=== PATIENT | female | born 1945 | race Caucasian/White ===

== ENCOUNTER → 2016-10-02 | Outpatient (CLI) | payer MEDICARE, OTHER | LOC: RAD 19:19 | PROVIDERS: ATTEND Specialist | DX: C90.00 Multiple myeloma not having achieved remission (principal) | CPT/HCPCS: 72158; A9577 ==

== ENCOUNTER → 2016-11-27 | Outpatient (CLI) | payer MEDICARE, OTHER | LOC: RAD 13:36 | PROVIDERS: ATTEND Radiology Radiation Oncology | DX: C90.00 Multiple myeloma not having achieved remission (principal); R07.81 Pleurodynia | CPT/HCPCS: 71250 ==

== ENCOUNTER → 2017-02-12 | Outpatient (CLI) | payer MEDICARE, OTHER ==
--- NOTE | 2017-02-15 12:06 | RADIOLOGY REPORT (SQ) ---
EXAM DESCRIPTION: PET CT SKULL/THIGH COMPLETED DATE/TIME: 02/12/2017 10:41 pm REASON FOR STUDY: Multiple myeloma not having achieved remission C90.00 MULTIPLE MYELOMA NOT HAVING ACHIEVED REMISSION COMPARISON: CT dated 11/27/2016. PET-CT dated 06/20/2016. RADIONUCLIDE AND DOSE: 12.0 mCi F18 FDG The route of agent administration: Intravenous FASTING BLOOD SUGAR: 71 mg/dl CONTRAST TYPE AND DOSE: No CT contrast given. TECHNIQUE: Blood glucose level was verified. Above dose of FDG was injected intravenously. 2-D seg mented attenuation correction images were obtained from the base of the skull to the midthighs. Nonc ontrast CT images were obtained for attenuation correction and fusion with emission images. CT image s were performed without oral or intravenous contrast and are not sensitive for parenchymal lesions. A series of overlapping emission PET images were obtained. Images reviewed and manipulated at [facility] work station by the radiologist. Images stored on PACS. LIMITATIONS: None. FINDINGS: HEAD AND NECK: No areas of abnormal metabolic activity in the soft tissues of the head and neck. CHEST: Again seen are numerous pleural-based soft tissue masses adjacent to the ribs and paraspinal r egion bilaterally. In general these are unchanged in appearance on CT scan with no significant winkler e in size or shape. However, SUV values have decreased since the prior study. The lesion in right l ateral chest currently has mean SUV value 4.11, prior value 5.9. Right paraspinal lesion has mean HEAD V value 4.64, prior value 6.5. Lesion in the lateral left chest has mean SUV value 4.83, prior value 5.7. Lesion in the left posterior costophrenic sulcus is no longer present. ABDOMEN AND PELVIS: No areas of abnormal metabolic activity in the abdomen or pelvis. Expected physi ologic activity is present in the genitourinary system and bowel. PROXIMAL LOWER EXTREMITIES: No areas of abnormal metabolic activity in the soft tissues of the lower extremities. BONES: Lucent lesions in the lumbar spine are unchanged on CT. However, these lesions have improved on PET scan. There is no abnormal metabolic activity on the current PET scan. ADDITIONAL CT FINDINGS: No additional significant findings on the noncontrast CT images. OTHER: No other significant findings. IMPRESSION: GENERAL IMPROVED APPEARANCE WITH DECREASE IN THE AREAS METABOLIC ACTIVITY DESCRIBED A NAHEED. NO NEW LESIONS. TECHNICAL DOCUMENTATION: JOB ID: [id number] [employer]- All Rights Reserved
== END ==
LOC: RAD 17:11
PROVIDERS: ATTEND Specialist
DX: C90.00 Multiple myeloma not having achieved remission (principal)
CPT/HCPCS: 78815; A9552

== ENCOUNTER 2017-05-06 12:52 | Outpatient (CLI) | payer MEDICARE, OTHER ==
[~2017-05-06 12:52] MED LIST: ACETAMINOPHEN 325 MG TABLET PO PRN; DIPHENHYDRAMINE HCL 25 MG CAPSULE PO PRN; FUROSEMIDE INJ/PF 20 MG/2 ML SDV IV PRN
[2017-05-06 13:40] LABS: HEMATOCRIT 20.9 % (36.0-47.0); MEAN CORPUSCULAR HEMOGLOBIN 36.1 pg (27.0-33.4); MEAN CORPUSCULAR HGB CONC 34.8 g/dL (32.0-36.0); MEAN CORPUSCULAR VOLUME 104 fl (80-97); RED BLOOD COUNT 2.01 10^6/uL (3.72-5.28); RED CELL DISTRIBUTION WIDTH 15.9 % (11.5-14.0); WHITE BLOOD COUNT 6.6 10^3/uL (4.0-10.5)
[2017-05-06 13:46] LABS: HEMOGLOBIN 7.3 g/dL (12.0-15.5)
[2017-05-06] MEDS ORDERED: NORMAL SALINE 250 ML IV PRN (14:02)
[2017-05-06 21:47] VITALS: BP 138/71
== END 2017-05-06 22:05 | disposition home or self-care (01) ==
LOC: II 12:52 → 3N 12:56 → II 22:05
PROVIDERS: ATTEND Internal Medicine
PROC: 30233N1 Transfusion of Nonautologous Red Blood Cells into Peripheral Vein, Percutaneous Approach (ICD-10-PCS; principal; 2017-05-06)
DX: D64.9 Anemia, unspecified (principal); C90.02 Multiple myeloma in relapse
CPT/HCPCS: 86900; 86901; 36415; 36430; 86850; 86920; P9016; A9270 ×2; J1940; 96374

== ENCOUNTER 2017-05-09 14:18 | Emergency (ER) | payer MEDICARE, OTHER ==
[2017-05-09] MEDS ORDERED: NORMAL SALINE 1000 ML 1,000 ML IV ONE ×2 (15:28→17:40)
--- NOTE | 2017-05-09 15:28 | ER Document Report ---
ED Medical Screen (RME) - General Chief Complaint: General Weakness Stated Complaint: BACK PAIN, WEAKNESS Time Seen by Provider: 05/09/17 15:25 Mode of Arrival: Wheelchair Information source: Patient Notes: 71-year-old female history of multiple myeloma presents with complaints of generalized weakness as well as a few falls. Patient admits to the lumbar thoracic flank pain. Denies any fevers or chills notes recent anemia requiring transfusion I have greeted and performed a rapid initial assessment of this patient. A comprehensive ED assessment and evaluation of the patient, analysis of test results and completion of the medical decision making process will be conducted by additional ED providers. PHYSICAL EXAMINATION: GENERAL: Elderly female chronically ill appearing HEAD: Atraumatic, normocephalic. EYES: Pupils equal round extraocular movements intact, conjunctiva are normal. ENT: Nares patent NECK: Normal range of motion LUNGS: No respiratory distress Musculoskeletal: Normal range of motion NEUROLOGICAL: Normal speech, normal gait. PSYCH: Normal mood, normal affect. SKIN: Warm, Dry, normal turgor, no rashes or lesions noted. TRAVEL OUTSIDE OF THE [place] IN LAST 30 DAYS: No - Related Data Allergies/Adverse Reactions: cefaclor [From Ceclor] Allergy (Verified 06/09/13 21:30) hydrogen peroxide [Hydrogen Peroxide] Allergy (Verified 06/09/13 21:29) iodine [Iodine] Allergy (Verified 06/09/13 21:29) lanolin [Lanolin] Allergy (Verified 06/09/13 21:30) Sulfa (Sulfonamide Antibiotics) Allergy (Verified 06/09/13 21:30) lanolin alcohols [Wool Alcohols] Adverse Reaction (Verified 06/09/13 21:30) Past Medical History - Social History Chew tobacco use (# tins/day): No Frequency of alcohol use: None Drug Abuse: None - Past Medical History Cardiac Medical History: Reports: Hx Hypertension Denies: Hx Congestive Heart Failure, Hx Heart Attack Pulmonary Medical History: Denies: Hx Asthma, Hx Bronchitis, Hx COPD, Hx Pneumonia, Hx Tuberculosis Neurological Medical History: Denies: Hx Seizures Renal/ Medical History: Denies: Hx End Stage Renal Disease, Hx Kidney Stones, Hx Peritoneal Dialysis Malignancy Medical History: Reports: Hx Bone Cancer, Hx Skin Cancer GI Medical History: Reports: Hx Hiatal Hernia. Denies: Hx Cirrhosis, Hx Gastroesophageal Reflux Disease, Hx Ulcer Musculoskeltal Medical History: Reports Hx Arthritis, Denies Hx Multiple Sclerosis, Reports Hx Musculoskeletal Trauma Psychiatric Medical History: Denies: Hx Bipolar Disorder, Hx Depression, Hx Schizophrenia Traumatic Medical History: Reports: Hx Fractures Past Surgical History: Reports: Hx Tonsillectomy - Immunizations Immunizations up to date: Yes Hx Diphtheria, Pertussis, Tetanus Vaccination: Yes - 10/12/14 Physical Exam - Vital signs Vitals: Temp Pulse Resp BP Pulse Ox 98.6 F 110 H 16 139/71 H 95 05/09/17 14:44 05/09/17 14:44 05/09/17 14:44 05/09/17 14:44 05/09/17 14:44 Course - Vital Signs Vital signs: Temp Pulse Resp BP Pulse Ox 98.6 F 110 H 16 139/71 H 95 05/09/17 14:44 05/09/17 14:44 05/09/17 14:44 05/09/17 14:44 05/09/17 14:44
[2017-05-09] MEDS ORDERED: HYDROMORPHONE HCL INJ/PF 2 MG/ML AMPULE IV ONE (15:30)
[2017-05-09 16:15] LABS: APPEARANCE,URINE CLOUDY; BILIRUBIN,URINE NEGATIVE (NEGATIVE); GLUCOSE, URINE NEGATIVE (NEGATIVE); KETONES,URINE NEGATIVE (NEGATIVE); LEUKOCYTE ESTERASE,URINE MODERATE (NEGATIVE); NITRITE,URINE NEGATIVE (NEGATIVE); PROTEIN,URINE 100 mg/dL (NEGATIVE); URINE SPECIFIC GRAVITY 1.019; UROBILINOGEN,URINE NEGATIVE mg/dL (<2.0)
--- NOTE | 2017-05-09 16:25 | RADIOLOGY REPORT (SQ) ---
EXAM DESCRIPTION: CT THORACIC SPINE WITHOUT COMPLETED DATE/TIME: 05/09/2017 4:10 pm REASON FOR STUDY: fall COMPARISON: CT chest dated 11/27/2016 TECHNIQUE: Axial images acquired through the thoracic spine without intravenous contrast. Images re viewed with lung, soft tissue and bone windows. Reconstructed coronal and sagittal MPR images review ed. Images stored on PACS. All CT scanners at this facility use dose modulation, iterative reconstruction, and/or weight based d osing when appropriate to reduce radiation dose to as low as reasonably achievable (ALARA). [facility]: Dose Right [facility]: CareDose [facility]: Dose Right [facility]: Teradose 4D [facility]: [employer] RADIATION DOSE: Up-to-date CT equipment and radiation dose reduction techniques were employed. CTDIv ol: 17.1 mGy. DLP: 465 mGy-cm. mGy. LIMITATIONS: None. FINDINGS: VISUALIZED LUNGS: No acute opacities. No pneumothorax. SOFT TISSUES: There are multiple soft tissue masses in the posterior mediastinum consistent with know n metastases. These it increased in size since prior study. VERTEBRAL BODIES: No fractures. No dislocation. No acute findings. DISCS: There is multilevel disc space narrowing. ALIGNMENT: Normal. TRANSVERSE PROCESSES, POSTERIOR ELEMENTS: No fractures. No dislocation. No acute findings. HARDWARE: None in the spine. VISUALIZED RIBS: No fractures. OTHER: No other significant finding. IMPRESSION: 1. Multilevel spondylosis. No acute fracture or dislocation. 2. Multiple posterior mediastinal on pleural-based soft tissue masses consistent with metastatic dis ease. Findings have progressed since November 2016. TECHNICAL DOCUMENTATION: JOB ID: [id number] Quality ID # [id number]: Final reports with documentation of one or more dose reduction techniques (e.g., Au tomated exposure control, adjustment of the mA and/or kV according to patient size, use of iterative reconstruction technique) 2010 [employer]- All Rights Reserved
--- NOTE | 2017-05-09 16:27 | RADIOLOGY REPORT (SQ) ---
EXAM DESCRIPTION: CT LUMBAR SPINE WITHOUT COMPLETED DATE/TIME: 05/09/2017 4:10 pm REASON FOR STUDY: fall COMPARISON: PET-CT dated 02/12/2017 TECHNIQUE: Axial images acquired through the lumbar spine without intravenous contrast. Images revie wed with lung, soft tissue and bone windows. Reconstructed coronal and sagittal MPR images reviewed. Images stored on PACS. All CT scanners at this facility use dose modulation, iterative reconstruction, and/or weight based d osing when appropriate to reduce radiation dose to as low as reasonably achievable (ALARA). [facility]: Dose Right [facility]: CareDose [facility]: Dose Right [facility]: Teradose 4D [facility]: [employer] RADIATION DOSE: mGy. LIMITATIONS: None. FINDINGS: SOFT TISSUES: No soft tissue swelling. No masses. SEGMENTATION: Normal. No transitional anatomy. ALIGNMENT: Normal. VERTEBRAL BODIES: No fractures. No dislocation. No acute findings. Small lytic lesions are stable when compared to prior PET. DISCS: There is multilevel disc space narrowing. PEDICLES, TRANSVERSE PROCESSES: No fractures. No dislocation. No acute findings. FACETS, POSTERIOR ELEMENTS: No fractures. No dislocation. HARDWARE: None in the spine. VISUALIZED RIBS: No fractures. OTHER: No other significant finding. IMPRESSION: DEGENERATIVE CHANGES IN THE LUMBAR SPINE WITHOUT ACUTE FRACTURE OR DISLOCATION. TECHNICAL DOCUMENTATION: JOB ID: [id number] Quality ID # [id number]: Final reports with documentation of one or more dose reduction techniques (e.g., Au tomated exposure control, adjustment of the mA and/or kV according to patient size, use of iterative reconstruction technique) 2010 [employer]- All Rights Reserved
[2017-05-09 16:42] LABS: ABSOLUTE LYMPHOCYTES (AUTO) 0.7 10^3/uL (0.5-4.7); ABSOLUTE MONOCYTES (AUTO) 0.5 10^3/uL (0.1-1.4); ABSOLUTE NEUT (AUTO) 5.7 10^3/uL (1.7-8.2); BASOPHILS % (AUTO) 0.3 % (0-2); EOSINOPHILS % (AUTO) 0.4 % (0-6); HEMATOCRIT 28.4 % (36.0-47.0); HGB HCT DIFFERENCE 1.6; LYMPHOCYTES % (AUTO) 10.2 % (13-45); MEAN CORPUSCULAR HEMOGLOBIN 34.3 pg (27.0-33.4); MEAN CORPUSCULAR HGB CONC 35.2 g/dL (32.0-36.0); RED BLOOD COUNT 2.92 10^6/uL (3.72-5.28); RED CELL DISTRIBUTION WIDTH 19.3 % (11.5-14.0); SEGMENTED NEUTROPHILS % (AUTO) 82.1 % (42-78); WHITE BLOOD COUNT 6.9 10^3/uL (4.0-10.5)
[2017-05-09 16:43] LABS: MEAN CORPUSCULAR VOLUME 97 fl (80-97)
[2017-05-09 16:51] LABS: ALANINE AMINOTRANSFERASE 21 U/L (9-52); ALBUMIN 3.1 g/dL (3.5-5.0); ALKALINE PHOSPHATASE 105 U/L (38-126); ANION GAP 11 (5-19); ASPARTATE AMINO TRANSFERASE 23 U/L (14-36); BILIRUBIN,DIRECT 0.4 mg/dL (0.0-0.4); BILIRUBIN,TOTAL 0.7 mg/dL (0.2-1.3); BLOOD UREA NITROGEN 12 mg/dL (7-20); CALCIUM 9.1 mg/dL (8.4-10.2); CARBON DIOXIDE 20 mmol/L (22-30); CHLORIDE 102 mmol/L (98-107); GLUCOSE 114 mg/dL (75-110); POTASSIUM 3.5 mmol/L (3.6-5.0); SODIUM 132.8 mmol/L (137-145)
[2017-05-09 17:04] LABS: TOTAL PROTEIN 12.6 g/dL (6.3-8.2)
--- NOTE | 2017-05-09 17:41 | ER Document Report ---
ED General - General Chief Complaint: General Weakness Stated Complaint: BACK PAIN, WEAKNESS Time Seen by Provider: 05/09/17 15:25 Mode of Arrival: Wheelchair Information source: Patient, Relative Notes: Patient presents complaining of feeling tired and weak for the past few days. Patient fell 8 days ago and since then has had low back pain. Patient does have a history of multiple myeloma and receives weekly chemotherapy. Patient had a low H&H whenever she fell 8 days ago. Since then patient received a blood transfusion 3 days ago. Daughter states that patient had intermittent low -grade fever and has occasionally been confused. Patient denies any dysuria or urinary frequency symptoms. Patient denies any head injury. TRAVEL OUTSIDE OF THE [place] IN LAST 30 DAYS: No - HPI Onset: Last week Onset/Duration: Persistent Quality of pain: Achy Pain Level: 4 Associated symptoms: Other - Low back pain. denies: Chest pain, Nonproductive cough, Productive cough, Leg swelling, Nausea, Vomiting Exacerbated by: Movement Relieved by: Denies Similar symptoms previously: No Recently seen / treated by doctor: Yes - Related Data Allergies/Adverse Reactions: cefaclor [From Ceclor] Allergy (Verified 06/09/13 21:30) hydrogen peroxide [Hydrogen Peroxide] Allergy (Verified 06/09/13 21:29) iodine [Iodine] Allergy (Verified 06/09/13 21:29) lanolin [Lanolin] Allergy (Verified 06/09/13 21:30) Sulfa (Sulfonamide Antibiotics) Allergy (Verified 06/09/13 21:30) lanolin alcohols [Wool Alcohols] Adverse Reaction (Verified 06/09/13 21:30) Past Medical History - General Information source: Patient, Relative - Social History Smoking Status: Never Smoker Chew tobacco use (# tins/day): No Frequency of alcohol use: None Drug Abuse: None Lives with: Family Family History: Arthritis, CVA, Hyperlipidemia, Hypertension, Malignancy - Past Medical History Cardiac Medical History: Reports: Hx Hypertension Denies: Hx Congestive Heart Failure, Hx Heart Attack Pulmonary Medical History: Denies: Hx Asthma, Hx Bronchitis, Hx COPD, Hx Pneumonia, Hx Tuberculosis Neurological Medical History: Reports: Hx Cerebrovascular Accident. Denies: Hx Seizures Renal/ Medical History: Denies: Hx End Stage Renal Disease, Hx Kidney Stones, Hx Peritoneal Dialysis Malignancy Medical History: Reports: Hx Bone Cancer, Hx Skin Cancer, Other - Multiple myeloma GI Medical History: Reports: Hx Hiatal Hernia. Denies: Hx Cirrhosis, Hx Gastroesophageal Reflux Disease, Hx Ulcer Musculoskeltal Medical History: Reports Hx Arthritis, Denies Hx Multiple Sclerosis, Reports Hx Musculoskeletal Trauma Psychiatric Medical History: Denies: Hx Bipolar Disorder, Hx Depression, Hx Schizophrenia Traumatic Medical History: Reports: Hx Fractures Past Surgical History: Reports: Hx Tonsillectomy - Immunizations Immunizations up to date: Yes Hx Diphtheria, Pertussis, Tetanus Vaccination: Yes - 10/12/14 Review of Systems - Review of Systems Constitutional: Fever - Low-grade off and on EENT: No symptoms reported Cardiovascular: No symptoms reported. denies: Chest pain Respiratory: No symptoms reported. denies: Cough, Short of breath Gastrointestinal: No symptoms reported. denies: Abdominal pain, Nausea, Vomiting Genitourinary: No symptoms reported. denies: Dysuria, Flank pain Female Genitourinary: No symptoms reported Musculoskeletal: Back pain Skin: Other - Small abrasion to left anterior lower leg that she received during the fall Hematologic/Lymphatic: No symptoms reported Neurological/Psychological: Confusion - Occasionally confused Physical Exam - Vital signs Vitals: Temp Pulse Resp BP Pulse Ox 98.6 F 110 H 16 139/71 H 95 05/09/17 14:44 05/09/17 14:44 05/09/17 14:44 05/09/17 14:44 05/09/17 14:44 - Notes Notes: Patient had received a milligram of Dilaudid IV in triage, patient occasionally will make the odd comment but arouses easily and is readily reoriented, daughter suspects that her occasional odd comment is related to the effects of the pain medication as she does not regularly take any pain medication. - General General appearance: Appears well In distress: None Notes: Patient resting with eyes closed arouses easily to voice - HEENT Head: Normocephalic, Atraumatic Eyes: Normal Conjunctiva: Normal Nasal: Normal Mouth/Lips: Normal Mucous membranes: Normal Pharynx: Normal Neck: Normal, Supple. No: Lymphadenopathy - Respiratory Respiratory status: No respiratory distress Chest status: Nontender Breath sounds: Normal. No: Rales, Rhonchi, Stridor, Wheezing Chest palpation: Normal - Cardiovascular Rhythm: Regular Heart sounds: S1 appreciated, S2 appreciated Murmur: No - Abdominal Inspection: Normal Distension: No distension Bowel sounds: Normal Tenderness: Nontender Organomegaly: No organomegaly - Back Back: Normal, Nontender. No: CVA tenderness - Extremities General upper extremity: Normal inspection, Normal ROM General lower extremity: Normal ROM, Other - Small abrasion to anterior aspect of left lower extremity with mild surrounding erythema - Neurological Neuro grossly intact: Yes Hobgood Coma Scale Eye Opening: Spontaneous Nickie Coma Scale Verbal: Oriented Nickie Coma Scale Motor: Obeys Commands Hobgood Coma Scale Total: 15 Speech: Normal - Psychological Associated symptoms: Normal affect, Normal mood - Skin Skin Temperature: Warm Skin Moisture: Dry Skin Color: Normal Irregularity with: Inflammation - Mild inflammation surrounding abrasion to left lower extremity Course - Re-evaluation Re-evalutation: 05/09/17 17:40 Spoke with patient's oncologist Dr. trujillo, reviewed patient's diagnostic test results as well as exam findings. He recommends giving her an additional liter of IV fluids, given her prescription of pain medication such as Westminster to take at home as well as treating her UTI. Does not recommend giving her Levaquin. - Vital Signs Vital signs: Temp Pulse Resp BP Pulse Ox 98.6 F 110 H 23 H 139/73 H 96 05/09/17 14:44 05/09/17 14:44 05/09/17 17:01 05/09/17 17:00 05/09/17 17:01 - Laboratory Result Diagrams: 05/09/17 16:18 05/09/17 16:18 Laboratory results interpreted by me: 05/09/17 05/09/17 05/09/17 15:30 16:18 16:18 RBC 2.92 L Hgb 10.0 L Hct 28.4 L MCH 34.3 H RDW 19.3 H Seg Neutrophils % 82.1 H Lymphocytes % 10.2 L Sodium 132.8 L Potassium 3.5 L Carbon Dioxide 20 L Est GFR (Non-Af Amer) 55 L Glucose 114 H Total Protein 12.6 H Albumin 3.1 L Urine Protein 100 H Urine Blood SMALL H Ur Leukocyte Esterase MODERATE H Discharge - Discharge Clinical Impression: Hx of multiple myeloma, Hypokalemia Low back pain Qualifiers: Chronicity: unspecified Back pain laterality: unspecified Sciatica presence: without sciatica Qualified Code(s): M54.5 - Low back pain UTI (urinary tract infection) Qualifiers: Urinary tract infection type: site unspecified Hematuria presence: with hematuria Qualified Code(s): N39.0 - Urinary tract infection, site not specified Condition: Stable Disposition: HOME, SELF-CARE Instructions: Hypokalemia ([facility]), Low Back Pain ([facility]), Nitrofurantoin ([facility]), Oral Narcotic Medication ([facility]), Urinary Tract Infection ([facility]) Additional Instructions: Return immediately for any new or worsening symptoms Followup with your primary care provider, call tomorrow to make a followup appointment Urine culture is pending, we will call if you need any different treatment Follow-up with Dr. Trujillo, call Wednesday for an appointment time Prescriptions: Hydrocodone/Acetaminophen [Westminster 5-325 Tablet] 1 each PO Q6 PRN #25 tablet PRN Reason: Nitrofurantoin/Nitrofuran Mac [Macrobid 100 mg Capsule] 1 tab PO BID #14 capsule Referrals: KARL TRUJILLO MD [ACTIVE STAFF] - 05/11/17
[2017-05-09] MEDS ORDERED: NITROFURANTOIN MONOHYD/M-CRYST 100 MG CAPSULE PO ONE (17:52)
[2017-05-09] MEDS ORDERED: POTASSIUM CHLORIDE 10 MEQ TABLET.SA PO ONE (17:58)
[2017-05-09 19:10] VITALS: BP 134/74
== END 2017-05-09 19:17 | disposition home or self-care (01) ==
LOC: ER 14:18
DX: N39.0 Urinary tract infection, site not specified (principal); S80.812A Abrasion, left lower leg, initial encounter; M54.5 Low back pain; W19.XXXA Unspecified fall, initial encounter; E87.6 Hypokalemia; C90.00 Multiple myeloma not having achieved remission; Z79.899 Other long term (current) drug therapy; R53.1 Weakness; R53.83 Other fatigue; R50.9 Fever, unspecified; R41.0 Disorientation, unspecified; I10 Essential (primary) hypertension; Z88.1 Allergy status to other antibiotic agents; Z88.8 Allergy status to other drugs, medicaments and biological substances; Z88.2 Allergy status to sulfonamides; Z86.73 Personal history of transient ischemic attack (TIA), and cerebral infarction without residual deficits
CPT/HCPCS: 99284; 96361; 96374; 36415; 87086; 85025; 80053; 81001; 87186; 72128; 72131; J1170; J7030; A9270 ×2; J8499

== ENCOUNTER 2017-05-11 14:27 | Inpatient (IN) | payer MEDICARE, OTHER ==
[2017-05-11] MEDS ORDERED: NORMAL SALINE 1000 ML 1,000 ML IV PRN (15:29)
[2017-05-11] MEDS ORDERED: ONDANSETRON HCL INJ/PF 4 MG/2 ML SDV IV PRN (15:29)
[2017-05-11] MEDS ORDERED: ZOLPIDEM TARTRATE 5 MG TABLET PO PRN (15:29)
[2017-05-11] MEDS ORDERED: MAGNESIUM HYDROXIDE SUSP 30 ML UDCUP PO PRN (15:29)
[2017-05-11] MEDS ORDERED: HYDROCODONE/ACETAMINOPHEN 5-325 MG TABLET PO PRN (15:35)
--- NOTE | 2017-05-11 16:40 | PDOC H&P ---
History of Present Illness Admission Date/PCP: 05/11/17 14:27 Patient complains of: Fevers, nausea and vomiting History of Present Illness: ÁNGELA ALBRIGHT is a 71 year old female with history of progressive multiple myeloma presently on chemotherapy. She presents from her oncologist office. She presented to the emergency room 2 days ago with complaints of weakness, fatigue and multiple falls. She underwent CT of her back and pelvis which was unremarkable any for any fractures. She was noted to have a urinary tract infection and was started on Macrobid. She has had worsening back pain was started on oral hydrocodone 2 days ago as well. She states since that time she has had progressive fevers with temperatures up to 103 orally. She has had night sweats. Urine culture was positive for Escherichia coli with multiple drug resistance. She has also had nausea and vomiting and unable to keep anything down since starting the macrobid. She has multiple intolerances to narcotic analgesics in the past. Has a history of anemia and was given blood transfusion approximately 5 days ago. Past Medical History Cardiac Medical History: Reports: Hypertension Denies: Congestive Heart Failure, Myocardial Infarction Pulmonary Medical History: Denies: Asthma, Bronchitis, Chronic Obstructive Pulmonary Disease (COPD), Pneumonia, Tuberculosis EENT Medical History: Reports: None Neurological Medical History: Reports: None Denies: Seizures Endocrine Medical History: Reports: None Renal/ Medical History: Denies: End Stage Renal Disease Malignancy Medical History: Reports: Bone Cancer, Skin Cancer GI Medical History: Reports: Hiatal Hernia Denies: Cirrhosis, Gastroesophageal Reflux Disease Musculoskeltal Medical History: Reports: Arthritis Skin Medical History: Reports: None, Other - left anterior leg wound she was treated with clindamycin and bacitracin. Psychiatric Medical History: Denies: Bipolar Disorder, Depression Traumatic Medical History: Reports: None Hematology: Reports: Anemia - hemorrhage Denies: Bleeding Tendencies Infectious Medical History: Reports: None Past Surgical History Past Surgical History: Reports: Tonsillectomy Social History Information Source: Patient Lives with: Spouse/Significant other Smoking Status: Never Smoker Frequency of Alcohol Use: None Hx Recreational Drug Use: No Drugs: None Hx Prescription Drug Abuse: No - Advance Directive Resuscitation Status: Do Not Resuscitate Family History Family History: Arthritis, CVA, Hyperlipidemia, Hypertension, Malignancy Parental Family History Reviewed: Yes Children Family History Reviewed: Yes Sibling(s) Family History Reviewed.: Yes Medication/Allergy Home Medications: Hydrocodone/Acetaminophen [Home 5-325 Tablet] 1 each PO Q6 PRN #25 tablet 05/09 Nitrofurantoin/Nitrofuran Mac [Macrobid 100 mg Capsule] 1 tab PO BID #14 capsule 05/09/17 Allergies/Adverse Reactions: cefaclor [From Ceclor] Allergy (Verified 06/09/13 21:30) hydrogen peroxide [Hydrogen Peroxide] Allergy (Verified 06/09/13 21:29) iodine [Iodine] Allergy (Verified 06/09/13 21:29) lanolin [Lanolin] Allergy (Verified 06/09/13 21:30) Sulfa (Sulfonamide Antibiotics) Allergy (Verified 06/09/13 21:30) lanolin alcohols [Wool Alcohols] Adverse Reaction (Verified 06/09/13 21:30) Review of Systems Constitutional: PRESENT: chills, fatigue, fever(s), night sweats, weakness Eyes: ABSENT: visual disturbances Ears: ABSENT: hearing changes Cardiovascular: ABSENT: chest pain, dyspnea on exertion, edema, orthropnea, palpitations Respiratory: ABSENT: cough, hemoptysis Gastrointestinal: ABSENT: abdominal pain, constipation, diarrhea, hematemesis, hematochezia, nausea, vomiting Genitourinary: ABSENT: dysuria, hematuria Musculoskeletal: ABSENT: joint swelling Integumentary: ABSENT: rash, wounds Neurological: ABSENT: abnormal gait, abnormal speech, confusion, dizziness, focal weakness, syncope Psychiatric: ABSENT: anxiety, depression, homidical ideation, suicidal ideation Endocrine: ABSENT: cold intolerance, heat intolerance, polydipsia, polyuria Hematologic/Lymphatic: ABSENT: easy bleeding, easy bruising Physical Exam General appearance: PRESENT: no acute distress, thin, well-developed, well- nourished Head exam: PRESENT: atraumatic, normocephalic Eye exam: PRESENT: conjunctiva pink, EOMI, PERRLA. ABSENT: scleral icterus Ear exam: PRESENT: normal external ear exam Mouth exam: PRESENT: moist, tongue midline Neck exam: ABSENT: carotid bruit, JVD, lymphadenopathy, thyromegaly Respiratory exam: PRESENT: clear to auscultation cricket. ABSENT: rales, rhonchi, wheezes Cardiovascular exam: PRESENT: RRR. ABSENT: diastolic murmur, rubs, systolic murmur Pulses: PRESENT: normal dorsalis pedis pul Vascular exam: PRESENT: normal capillary refill GI/Abdominal exam: PRESENT: normal bowel sounds, soft. ABSENT: distended, guarding, mass, organolmegaly, rebound, tenderness Rectal exam: PRESENT: deferred Extremities exam: PRESENT: full ROM. ABSENT: calf tenderness, clubbing, pedal edema Musculoskeletal exam: PRESENT: ambulatory, full ROM, tenderness, other - significant back pain Neurological exam: PRESENT: alert, awake, oriented to person, oriented to place , oriented to time, oriented to situation, CN II-XII grossly intact. ABSENT: motor sensory deficit Psychiatric exam: PRESENT: appropriate affect, normal mood. ABSENT: homicidal ideation, suicidal ideation Skin exam: PRESENT: dry, intact, warm. ABSENT: cyanosis, rash Results Laboratory Results: Blood work from Dr. Mohamud's office. WBCs 8.7, hemoglobin is 9.3, hematocrit 28.1, platelet count 123,000. Chemistry and blood cultures 2 are pending. Assessment & Plan - Diagnosis (1) UTI (urinary tract infection) Qualifiers: Urinary tract infection type: site unspecified Hematuria presence: with hematuria Qualified Code(s): N39.0 - Urinary tract infection, site not specified; R31.9 - Hematuria, unspecified Is this a current diagnosis for this admission?: Yes Plan: Culture from the ER on 05/09, shows ecoli resistant to multiple drugs including Macrobid. She will be placed on IV Ceftriazone. (2) Hyponatremia Is this a current diagnosis for this admission?: Yes Plan: Patient is dehydrated from poor oral intake. We will gently rehydrate with IV normal saline. Monitor (3) Nausea and vomiting Qualifiers: Vomiting Intractability: non-intractable Is this a current diagnosis for this admission?: Yes Plan: IV fluid and as needed Zofran progress diet as tolerated. (4) Hx of multiple myeloma Is this a current diagnosis for this admission?: Yes Plan: Consult Dr. Mohamud. Physical therapy and pain control (5) Hypokalemia Is this a current diagnosis for this admission?: Yes Plan: Repleted as needed (6) Low back pain Qualifiers: Chronicity: unspecified Back pain laterality: unspecified Sciatica presence: without sciatica Qualified Code(s): M54.5 - Low back pain Is this a current diagnosis for this admission?: Yes Plan: We will add Lidoderm patch. Patient has multiple sensitivities to opioid analgesics. Tramadol has not worked in the past. - Time Time Spent: 50 to 70 Minutes Critical Time spent with patient: 25-34 minutes Medications reviewed and adjusted accordingly: Yes
[2017-05-11 18:01] LABS: ANION GAP 9 (5-19); BLOOD UREA NITROGEN 15 mg/dL (7-20); CALCIUM 8.7 mg/dL (8.4-10.2); CARBON DIOXIDE 19 mmol/L (22-30); CHLORIDE 107 mmol/L (98-107); CREATININE RESULT 0.88 mg/dL (0.52-1.25); GLUCOSE 130 mg/dL (75-110); POTASSIUM 3.4 mmol/L (3.6-5.0); SODIUM 135.1 mmol/L (137-145)
[2017-05-11] MEDS ORDERED: CEFTRIAXONE 1 GM/D5W RTU 1 GM/50 ML RTUPB IV SCH (20:00)
[2017-05-11] MEDS: LANSOPRAZOLE 30 MG TAB.RAP.DR PO SCH (21:56)
[2017-05-11] MEDS: ERTAPENEM SODIUM 1 GM in NORMAL SALINE 50 ML IV SCH (22:15)
[2017-05-11] MEDS: HEPARIN SOD (PORCINE) 5,000 UNIT/ML 1 ML SYRINGE SUBCUT SCH (22:16)
[2017-05-12 06:06] LABS: ABSOLUTE BASOPHILS # (AUTO) 0.1 10^3/uL (0.0-0.2); ABSOLUTE EOSINOPHILS # (AUTO) 0.1 10^3/uL (0.0-0.6); ABSOLUTE LYMPHOCYTES (AUTO) 0.9 10^3/uL (0.5-4.7); ABSOLUTE MONOCYTES (AUTO) 0.6 10^3/uL (0.1-1.4); ABSOLUTE NEUT (AUTO) 5.7 10^3/uL (1.7-8.2); BASOPHILS % (AUTO) 0.7 % (0-2); EOSINOPHILS % (AUTO) 1.2 % (0-6); HEMATOCRIT 24.3 % (36.0-47.0); HEMOGLOBIN 8.4 g/dL (12.0-15.5); HGB HCT DIFFERENCE 0.9; LYMPHOCYTES % (AUTO) 12.5 % (13-45); MEAN CORPUSCULAR HEMOGLOBIN 33.9 pg (27.0-33.4); MEAN CORPUSCULAR HGB CONC 34.6 g/dL (32.0-36.0); MEAN CORPUSCULAR VOLUME 98 fl (80-97); MONOCYTES % (AUTO) 8.8 % (3-13); RED BLOOD COUNT 2.48 10^6/uL (3.72-5.28); RED CELL DISTRIBUTION WIDTH 19.3 % (11.5-14.0); SEGMENTED NEUTROPHILS % (AUTO) 76.8 % (42-78); WHITE BLOOD COUNT 7.4 10^3/uL (4.0-10.5)
[2017-05-12] MEDS: HEPARIN SOD (PORCINE) 5,000 UNIT/ML 1 ML SYRINGE SUBCUT SCH ×3 (06:20→21:11)
[2017-05-12 06:29] LABS: ALBUMIN 2.6 g/dL (3.5-5.0); ANION GAP 6 (5-19); ASPARTATE AMINO TRANSFERASE 26 U/L (14-36); BLOOD UREA NITROGEN 13 mg/dL (7-20); CALCIUM 8.2 mg/dL (8.4-10.2); CARBON DIOXIDE 20 mmol/L (22-30); CHLORIDE 113 mmol/L (98-107); CREATININE RESULT 0.81 mg/dL (0.52-1.25); GLUCOSE 89 mg/dL (75-110); POTASSIUM 3.2 mmol/L (3.6-5.0); SODIUM 138.5 mmol/L (137-145); TOTAL PROTEIN 10.9 g/dL (6.3-8.2)
[2017-05-12 06:30] LABS: ALANINE AMINOTRANSFERASE 17 U/L (9-52); ALKALINE PHOSPHATASE 141 U/L (38-126); BILIRUBIN,DIRECT 0.5 mg/dL (0.0-0.4); BILIRUBIN,TOTAL 0.5 mg/dL (0.2-1.3); MAGNESIUM 1.8 mg/dL (1.6-2.3)
--- NOTE | 2017-05-12 08:34 | PDOC CONSULTATION ---
Consultation Consult Date: 05/12/17 Attending physician:: AUDRA FELIX Consult reason:: Known myeloma here w/ UTI/ sepsis History of Present Illness Admission Date/PCP: 05/11/17 15:29 Patient complains of: Fevers, chills, sepsis History of Present Illness: 71-year-old female with known history of multiple myeloma, recently she has been weaker. About 2 months ago she was found to have progression of the myeloma, we initiated a new medication for her, most recently she was on EMPLICITI, POMALYST, DEXAMETHASONE, she was found to have fevers over the last 3 days, chills, weakness, she did come to the ED over the weekend, she was found to have a UTI, and discharged with nitrofurantoin, we received the cultures back yesterday and unfortunately it is a multidrug-resistant E. coli, resistant to both fluoroquinolones as well as nitrofurantoin, she has been on clindamycin for a leg infection. That is improving. She was seen in our office yesterday and she was very weak, having active fevers, we decided to directly admit her, since admission she has had blood cultures drawn and 2 of 2 are positive for gram-negative rods. She has been on ertapenem now for 24 hours , she has been doing a little bit better. We repeated her myeloma labs in office, we do not have this back yet. Past Medical History Cardiac Medical History: Reports: Hypertension Denies: Congestive Heart Failure, Myocardial Infarction Pulmonary Medical History: Denies: Asthma, Bronchitis, Chronic Obstructive Pulmonary Disease (COPD), Pneumonia, Tuberculosis EENT Medical History: Reports: None Neurological Medical History: Reports: None Denies: Seizures Endocrine Medical History: Reports: None Renal/ Medical History: Denies: End Stage Renal Disease Malignancy Medical History: Reports: Skin Cancer, Other - multiple myeloma GI Medical History: Reports: Hiatal Hernia Denies: Cirrhosis, Gastroesophageal Reflux Disease Musculoskeltal Medical History: Reports: Arthritis Skin Medical History: Reports: None, Other - left anterior leg wound she was treated with clindamycin and bacitracin. Psychiatric Medical History: Denies: Bipolar Disorder, Depression Traumatic Medical History: Reports: None Hematology: Reports: Anemia - hemorrhage Denies: Bleeding Tendencies Infectious Medical History: Reports: None Past Surgical History Past Surgical History: Reports: Tonsillectomy Social History Lives with: Spouse/Significant other Smoking Status: Never Smoker Frequency of Alcohol Use: None Hx Recreational Drug Use: No Drugs: None Hx Prescription Drug Abuse: No - Advance Directive Resuscitation Status: Do Not Resuscitate Family History Family History: Arthritis, CVA, Hyperlipidemia, Hypertension, Malignancy Parental Family History Reviewed: Yes Children Family History Reviewed: Yes Sibling(s) Family History Reviewed.: Yes Medication/Allergy Home Medications: Acyclovir [Zovirax 200 mg Capsule] 200 mg PO DAILY 05/11/17 Amlodipine Besylate [Norvasc 10 mg Tablet] 10 mg PO DAILY 05/11/17 Aspirin [Aspirin 81 mg Chewable Tablet] 81 mg PO DAILY 05/11/17 Atenolol [Tenormin 50 mg Tablet] 50 mg PO DAILY 05/11/17 Clindamycin HCl [Cleocin 150 mg Capsule] 150 mg PO DAILY 05/11/17 Dexamethasone [Decadron 4 mg Tablet] 40 mg PO .SEE COMMENTS PRN 05/11/17 Esomeprazole Magnesium [Nexium] 40 mg PO Q12 05/11/17 Estrogens,Conjugated [Premarin Vaginal Cream (0.625 mg/gm) 30 gm] 1 appful VG MOTH@2200 05/11/17 Hydrocodone/Acetaminophen [Willard 5-325 mg Tablet] 1 tab PO Q6HP PRN 05/11/17 Nitrofurantoin Monohyd/M-Cryst [Macrobid 100 mg Capsule] 100 mg PO Q12 05/11/17 Potassium Chloride [Klor-Con 10 Meq Tablet.sa] 20 meq PO DAILYP PRN 05/11/17 Allergies/Adverse Reactions: cefaclor [From Ceclor] Allergy (Verified 06/09/13 21:30) hydrogen peroxide [Hydrogen Peroxide] Allergy (Verified 06/09/13 21:29) iodine [Iodine] Allergy (Verified 06/09/13 21:29) lanolin [Lanolin] Allergy (Verified 06/09/13 21:30) Sulfa (Sulfonamide Antibiotics) Allergy (Verified 06/09/13 21:30) lanolin alcohols [Wool Alcohols] Adverse Reaction (Verified 06/09/13 21:30) Review of Systems Constitutional: ABSENT: chills, fever(s), headache(s), weight gain, weight loss Eyes: ABSENT: visual disturbances Ears: ABSENT: hearing changes Cardiovascular: ABSENT: chest pain, dyspnea on exertion, edema, orthropnea, palpitations Respiratory: ABSENT: cough, hemoptysis Gastrointestinal: ABSENT: abdominal pain, constipation, diarrhea, hematemesis, hematochezia, nausea, vomiting Genitourinary: ABSENT: dysuria, hematuria Musculoskeletal: ABSENT: joint swelling Integumentary: ABSENT: rash, wounds Neurological: ABSENT: abnormal gait, abnormal speech, confusion, dizziness, focal weakness, syncope Psychiatric: ABSENT: anxiety, depression, homidical ideation, suicidal ideation Endocrine: ABSENT: cold intolerance, heat intolerance, polydipsia, polyuria Hematologic/Lymphatic: ABSENT: easy bleeding, easy bruising Physical Exam Vital Signs: Temp Pulse Resp BP Pulse Ox 98.4 F 90 16 113/78 93 05/12/17 00:14 05/12/17 07:00 05/12/17 00:14 05/12/17 00:14 05/12/17 00:14 Intake & Output 05/11/17 05/12/17 05/13/17 06:59 06:59 06:59 Intake Total 1884 Balance 1884 Weight 52.9 kg General appearance: PRESENT: no acute distress, well-developed, well-nourished Head exam: PRESENT: atraumatic, normocephalic Eye exam: PRESENT: conjunctiva pink, EOMI, PERRLA. ABSENT: scleral icterus Ear exam: PRESENT: normal external ear exam Mouth exam: PRESENT: moist, tongue midline Neck exam: ABSENT: carotid bruit, JVD, lymphadenopathy, thyromegaly Respiratory exam: PRESENT: clear to auscultation cricket. ABSENT: rales, rhonchi, wheezes Cardiovascular exam: PRESENT: RRR. ABSENT: diastolic murmur, rubs, systolic murmur Pulses: PRESENT: normal dorsalis pedis pul Vascular exam: PRESENT: normal capillary refill GI/Abdominal exam: PRESENT: normal bowel sounds, soft. ABSENT: distended, guarding, mass, organolmegaly, rebound, tenderness Rectal exam: PRESENT: deferred Extremities exam: PRESENT: full ROM. ABSENT: calf tenderness, clubbing, pedal edema Neurological exam: PRESENT: alert, awake, oriented to person, oriented to place , oriented to time, oriented to situation, CN II-XII grossly intact. ABSENT: motor sensory deficit Psychiatric exam: PRESENT: appropriate affect, normal mood. ABSENT: homicidal ideation, suicidal ideation Skin exam: PRESENT: dry, intact, warm. ABSENT: cyanosis, rash Results Laboratory Results: 05/12/17 05:30 05/12/17 05:30 05/11/17 05/12/17 05/12/17 17:43 05:30 05:30 WBC 7.4 RBC 2.48 L Hgb 8.4 L Hct 24.3 L MCV 98 H MCH 33.9 H MCHC 34.6 RDW 19.3 H Plt Count 153 Seg Neutrophils % 76.8 Lymphocytes % 12.5 L Monocytes % 8.8 Eosinophils % 1.2 Basophils % 0.7 Absolute Neutrophils 5.7 Absolute Lymphocytes 0.9 Absolute Monocytes 0.6 Absolute Eosinophils 0.1 Absolute Basophils 0.1 Sodium 135.1 L 138.5 Potassium 3.4 L 3.2 L Chloride 107 113 H Carbon Dioxide 19 L 20 L Anion Gap 9 6 BUN 15 13 Creatinine 0.88 0.81 Est GFR ( Amer) > 60 > 60 Est GFR (Non-Af Amer) > 60 > 60 Glucose 130 H 89 Calcium 8.7 8.2 L Magnesium 1.8 Total Bilirubin 0.5 AST 26 ALT 17 Alkaline Phosphatase 141 H Total Protein 10.9 H Albumin 2.6 L Assessment & Plan - Diagnosis (1) Sepsis Qualifiers: Sepsis type: Escherichia coli Qualified Code(s): A41.51 - Sepsis due to Escherichia coli [E. coli] Is this a current diagnosis for this admission?: Yes Plan: Patient with likely E. coli sepsis, E. coli was in the urine and gram-negative rods are in the blood, continue with ertapenem. Continue with aggressive hydration. (2) UTI (urinary tract infection) Qualifiers: Urinary tract infection type: acute cystitis Hematuria presence: with hematuria Qualified Code(s): N30.01 - Acute cystitis with hematuria Is this a current diagnosis for this admission?: Yes Plan: Patient with UTI, E. coli, continue with ertapenem as above (3) Hx of multiple myeloma Is this a current diagnosis for this admission?: Yes Plan: We will follow up myeloma labs, she will continue on treatment as an outpatient. - Time Time Spent: Greater than 70 Minutes Critical Time spent with patient: 35 or more minutes - Inpatient Certification Based on my medical assessment, after consideration of the patient's comorbidities, presenting symptoms, or acuity I expect that the services needed warrant INPATIENT care.: Yes I certify that my determination is in accordance with my understanding of Medicare's requirements for reasonable and necessary INPATIENT services [42 CFR 412.3e].: Yes Medical Necessity: Need for IV Antibiotics
--- NOTE | 2017-05-12 08:56 | PDOC PROGRESS REPORT ---
Subjective Progress Note for:: 05/12/17 Subjective:: Patient is seen on morning rounds. She states she feels better than when she came in. She is still having some nausea, but no vomiting. She states her back is well under controlled except when she walks. She denies any shortness of breath or chest pain. She denies any diarrhea or abdominal pain. She did have one episode of night sweats early this morning. She had 2 out 2 blood cultures positive for gram positive cocci. She denies any other complaints other than generalized weakness. Physical Exam Vital Signs: Temp Pulse Resp BP Pulse Ox 98.6 F 98 16 128/75 H 96 05/12/17 08:06 05/12/17 08:06 05/12/17 08:06 05/12/17 08:06 05/12/17 08:06 Intake & Output 05/11/17 05/12/17 05/13/17 06:59 06:59 06:59 Intake Total 1884 Balance 1884 Weight 52.9 kg General appearance: PRESENT: no acute distress, thin, well-developed Head exam: PRESENT: atraumatic, normocephalic Eye exam: PRESENT: conjunctiva pink, EOMI, PERRLA. ABSENT: scleral icterus Ear exam: PRESENT: normal external ear exam Mouth exam: PRESENT: moist, tongue midline Neck exam: ABSENT: carotid bruit, JVD, lymphadenopathy, thyromegaly Respiratory exam: PRESENT: clear to auscultation cricket. ABSENT: rales, rhonchi, wheezes Cardiovascular exam: PRESENT: RRR. ABSENT: diastolic murmur, rubs, systolic murmur Pulses: PRESENT: normal dorsalis pedis pul Vascular exam: PRESENT: normal capillary refill GI/Abdominal exam: PRESENT: normal bowel sounds, soft. ABSENT: distended, guarding, mass, organolmegaly, rebound, tenderness Rectal exam: PRESENT: deferred Extremities exam: PRESENT: full ROM. ABSENT: calf tenderness, clubbing, pedal edema Musculoskeletal exam: PRESENT: ambulatory, full ROM - lower lumbar spine, tenderness Neurological exam: PRESENT: alert, awake, oriented to person, oriented to place , oriented to time, oriented to situation, CN II-XII grossly intact. ABSENT: motor sensory deficit Psychiatric exam: PRESENT: anxious Skin exam: PRESENT: dry, intact, warm. ABSENT: cyanosis, rash Results Laboratory Results: 05/12/17 05:30 05/12/17 05:30 05/11/17 05/12/17 05/12/17 17:43 05:30 05:30 WBC 7.4 RBC 2.48 L Hgb 8.4 L Hct 24.3 L MCV 98 H MCH 33.9 H MCHC 34.6 RDW 19.3 H Plt Count 153 Seg Neutrophils % 76.8 Lymphocytes % 12.5 L Monocytes % 8.8 Eosinophils % 1.2 Basophils % 0.7 Absolute Neutrophils 5.7 Absolute Lymphocytes 0.9 Absolute Monocytes 0.6 Absolute Eosinophils 0.1 Absolute Basophils 0.1 Sodium 135.1 L 138.5 Potassium 3.4 L 3.2 L Chloride 107 113 H Carbon Dioxide 19 L 20 L Anion Gap 9 6 BUN 15 13 Creatinine 0.88 0.81 Est GFR ( Amer) > 60 > 60 Est GFR (Non-Af Amer) > 60 > 60 Glucose 130 H 89 Calcium 8.7 8.2 L Magnesium 1.8 Total Bilirubin 0.5 AST 26 ALT 17 Alkaline Phosphatase 141 H Total Protein 10.9 H Albumin 2.6 L Assessment & Plan - Diagnosis (1) Gram-negative bacteremia Is this a current diagnosis for this admission?: Yes Plan: 2 out of 2 blood cultures positive for gram negative rods. Culture grew ecoli, with multiple drug resistance. Patient is allergic to cephalosporins. She has had one dose of IV invanz. Will continue (2) UTI (urinary tract infection) Qualifiers: Urinary tract infection type: acute cystitis Hematuria presence: with hematuria Qualified Code(s): N30.01 - Acute cystitis with hematuria Is this a current diagnosis for this admission?: Yes Plan: Culture from the ER on 05/09, shows ecoli resistant to multiple drugs including Macrobid. She will be placed on IV Invanz (3) Hyponatremia Is this a current diagnosis for this admission?: Yes Plan: Resolved with IV hydration (4) Metabolic acidosis Is this a current diagnosis for this admission?: Yes Plan: Most likely secondary to bacteremia and dehydration (5) Nausea and vomiting Qualifiers: Vomiting Intractability: non-intractable Is this a current diagnosis for this admission?: Yes Plan: IV fluid and as needed Zofran progress diet as tolerated.Will add zofran prior to meals (6) Hypokalemia Is this a current diagnosis for this admission?: Yes Plan: Repleted as needed (7) Hx of multiple myeloma Is this a current diagnosis for this admission?: Yes Plan: Consult Dr. Mohamud. Physical therapy and pain control (8) Low back pain Qualifiers: Chronicity: unspecified Back pain laterality: unspecified Sciatica presence: without sciatica Qualified Code(s): M54.5 - Low back pain Is this a current diagnosis for this admission?: Yes Plan: We will add Lidoderm patch. Progression of multiple myeloma and multiple recent falls Patient has multiple sensitivities to opioid analgesics. Tramadol has not worked in the past. - Time Time Spent with patient: 25-34 minutes Critical Time spent with patient: 15-24 minutes Medications reviewed and adjusted accordingly: Yes Anticipated discharge: Home with Homehealth
[2017-05-12] MEDS ORDERED: LIDOCAINE 5% (700 MG) TRANSDERMAL ADH..PATCH TP ONE (09:15)
[2017-05-12] MEDS ORDERED: BACITRACIN OPH OINT 3.5 GM EXT SCH (10:00)
[2017-05-12] MEDS: ACYCLOVIR 200 MG CAPSULE PO SCH (10:53)
[2017-05-12] MEDS: ASPIRIN 81 MG TABLET, CHEWABLE PO SCH (10:54)
[2017-05-12] MEDS: POTASSIUM CHLORIDE 10 MEQ TABLET.SA PO SCH ×2 (10:54→17:39)
[2017-05-12] MEDS: ATENOLOL 50 MG TABLET PO SCH (10:55)
[2017-05-12] MEDS: LANSOPRAZOLE 30 MG TAB.RAP.DR PO SCH ×2 (11:06→21:10)
[2017-05-12] MEDS: DOCUSATE SODIUM 100 MG CAPSULE PO SCH (11:08)
[2017-05-12] MEDS: ONDANSETRON 4 MG TAB.RAPDIS PO SCH ×2 (13:32→17:38)
[2017-05-12] MEDS: BACITRACIN ZINC OINTMENT 15 GM TP SCH ×2 (13:33→17:41)
[2017-05-12] MEDS: ERTAPENEM SODIUM 1 GM in NORMAL SALINE 50 ML IV SCH (19:42)
[2017-05-13] MEDS: HEPARIN SOD (PORCINE) 5,000 UNIT/ML 1 ML SYRINGE SUBCUT SCH ×3 (05:12→21:17)
[2017-05-13 05:37] LABS: ABSOLUTE EOSINOPHILS # (AUTO) 0.1 10^3/uL (0.0-0.6); ABSOLUTE LYMPHOCYTES (AUTO) 1.1 10^3/uL (0.5-4.7); ABSOLUTE MONOCYTES (AUTO) 0.7 10^3/uL (0.1-1.4); ABSOLUTE NEUT (AUTO) 3.8 10^3/uL (1.7-8.2); BASOPHILS % (AUTO) 0.8 % (0-2); EOSINOPHILS % (AUTO) 1.9 % (0-6); HEMATOCRIT 22.7 % (36.0-47.0); LYMPHOCYTES % (AUTO) 19.8 % (13-45); MEAN CORPUSCULAR HEMOGLOBIN 34.3 pg (27.0-33.4); MEAN CORPUSCULAR HGB CONC 34.9 g/dL (32.0-36.0); MEAN CORPUSCULAR VOLUME 98 fl (80-97); MONOCYTES % (AUTO) 11.7 % (3-13); RED BLOOD COUNT 2.32 10^6/uL (3.72-5.28); RED CELL DISTRIBUTION WIDTH 19.4 % (11.5-14.0); SEGMENTED NEUTROPHILS % (AUTO) 65.8 % (42-78); WHITE BLOOD COUNT 5.7 10^3/uL (4.0-10.5)
[2017-05-13 05:39] LABS: HEMOGLOBIN 7.9 g/dL (12.0-15.5)
[2017-05-13 05:48] LABS: ANION GAP 5 (5-19); BLOOD UREA NITROGEN 10 mg/dL (7-20); CALCIUM 8.4 mg/dL (8.4-10.2); CARBON DIOXIDE 21 mmol/L (22-30); CHLORIDE 114 mmol/L (98-107); CREATININE RESULT 0.79 mg/dL (0.52-1.25); GLUCOSE 81 mg/dL (75-110); MAGNESIUM 1.8 mg/dL (1.6-2.3); SODIUM 139.6 mmol/L (137-145)
[2017-05-13] MEDS: ONDANSETRON 4 MG TAB.RAPDIS PO SCH ×3 (07:50→17:14)
[2017-05-13] MEDS ORDERED: ZOLPIDEM TARTRATE 5 MG TABLET PO PRN (08:30)
--- NOTE | 2017-05-13 08:33 | PDOC PROGRESS REPORT ---
Subjective Progress Note for:: 05/13/17 Subjective:: Doing better today, was up in chair and walked w/ PT yesterday Physical Exam Vital Signs: Temp Pulse Resp BP Pulse Ox 98.2 F 81 19 142/80 H 94 05/13/17 07:34 05/13/17 07:34 05/13/17 07:34 05/13/17 07:34 05/13/17 07:34 Intake & Output 05/12/17 05/13/17 05/14/17 06:59 06:59 06:59 Intake Total 1884 947 Balance 1884 947 Weight 52.9 kg 53.4 kg General appearance: PRESENT: no acute distress, well-developed, well-nourished Head exam: PRESENT: atraumatic, normocephalic Eye exam: PRESENT: conjunctiva pink, EOMI, PERRLA. ABSENT: scleral icterus Ear exam: PRESENT: normal external ear exam Mouth exam: PRESENT: moist, tongue midline Neck exam: ABSENT: carotid bruit, JVD, lymphadenopathy, thyromegaly Respiratory exam: PRESENT: clear to auscultation cricket. ABSENT: rales, rhonchi, wheezes Cardiovascular exam: PRESENT: RRR. ABSENT: diastolic murmur, rubs, systolic murmur Pulses: PRESENT: normal dorsalis pedis pul Vascular exam: PRESENT: normal capillary refill GI/Abdominal exam: PRESENT: normal bowel sounds, soft. ABSENT: distended, guarding, mass, organolmegaly, rebound, tenderness Rectal exam: PRESENT: deferred Extremities exam: PRESENT: full ROM. ABSENT: calf tenderness, clubbing, pedal edema Neurological exam: PRESENT: alert, awake, oriented to person, oriented to place , oriented to time, oriented to situation, CN II-XII grossly intact. ABSENT: motor sensory deficit Psychiatric exam: PRESENT: appropriate affect, normal mood. ABSENT: homicidal ideation, suicidal ideation Skin exam: PRESENT: dry, intact, warm. ABSENT: cyanosis, rash Results Laboratory Results: 05/13/17 05:19 05/13/17 05:19 05/13/17 05/13/17 05:19 05:19 WBC 5.7 RBC 2.32 L Hgb 7.9 L Hct 22.7 L MCV 98 H MCH 34.3 H MCHC 34.9 RDW 19.4 H Plt Count 158 Seg Neutrophils % 65.8 Lymphocytes % 19.8 Monocytes % 11.7 Eosinophils % 1.9 Basophils % 0.8 Absolute Neutrophils 3.8 Absolute Lymphocytes 1.1 Absolute Monocytes 0.7 Absolute Eosinophils 0.1 Absolute Basophils 0.0 Sodium 139.6 Potassium 4.0 Chloride 114 H Carbon Dioxide 21 L Anion Gap 5 BUN 10 Creatinine 0.79 Est GFR ( Amer) > 60 Est GFR (Non-Af Amer) > 60 Glucose 81 Calcium 8.4 Magnesium 1.8 Assessment & Plan - Diagnosis (1) Sepsis Qualifiers: Sepsis type: Escherichia coli Qualified Code(s): A41.51 - Sepsis due to Escherichia coli [E. coli] Is this a current diagnosis for this admission?: Yes Plan: Likely ecoli sepsis, g negative so far but awaiting bcx results, will probably need IV atbx as outpt, cont invanz. (2) UTI (urinary tract infection) Qualifiers: Urinary tract infection type: acute cystitis Hematuria presence: with hematuria Qualified Code(s): N30.01 - Acute cystitis with hematuria Is this a current diagnosis for this admission?: Yes Plan: E coli UTI drug resistant, cont atbx (3) Hx of multiple myeloma Is this a current diagnosis for this admission?: Yes Plan: Awaiting myeloma f/u that we sent 2 days ago, will jero w. pt and family tomorrow, today had long discussion about disease status, spent 45 min in discussion. - Time Time Spent with patient: 35 or more minutes Critical Time spent with patient: 35 or more minutes - Inpatient Certification Medical Necessity: Need for IV Antibiotics
[2017-05-13] MEDS ORDERED: ONDANSETRON HCL INJ/PF 4 MG/2 ML SDV IV PRN (09:00)
[2017-05-13] MEDS ORDERED: MAGNESIUM HYDROXIDE SUSP 30 ML UDCUP PO PRN (09:00)
--- NOTE | 2017-05-13 09:27 | PDOC PROGRESS REPORT ---
Subjective Progress Note for:: 05/13/17 Subjective:: Patient is seen on morning rounds. She states she feels better. She was able to walk with PT yesterday. She states her back pain is well under controlled except when she walks. She denies any shortness of breath or chest pain. She denies any diarrhea or abdominal pain. She states the zofran prior to her meals has helped nausea. She has 2 out 2 blood cultures positive for gram positive cocci. Urine culture grew e coli with multiple drug resistances. She denies any other complaints other than generalized weakness. Physical Exam Vital Signs: Temp Pulse Resp BP Pulse Ox 98.2 F 81 19 142/80 H 94 05/13/17 07:34 05/13/17 07:34 05/13/17 07:34 05/13/17 07:34 05/13/17 07:34 Intake & Output 05/12/17 05/13/17 05/14/17 06:59 06:59 06:59 Intake Total 1884 947 Balance 1884 947 Weight 52.9 kg 53.4 kg General appearance: PRESENT: no acute distress, thin, well-developed Head exam: PRESENT: atraumatic, normocephalic Eye exam: PRESENT: conjunctiva pale Ear exam: PRESENT: normal external ear exam Mouth exam: PRESENT: moist, tongue midline Neck exam: ABSENT: carotid bruit, JVD, lymphadenopathy, thyromegaly Respiratory exam: PRESENT: clear to auscultation cricket. ABSENT: rales, rhonchi, wheezes Cardiovascular exam: PRESENT: RRR. ABSENT: diastolic murmur, rubs, systolic murmur Pulses: PRESENT: normal dorsalis pedis pul Vascular exam: PRESENT: normal capillary refill GI/Abdominal exam: PRESENT: normal bowel sounds, soft. ABSENT: distended, guarding, mass, organolmegaly, rebound, tenderness Rectal exam: PRESENT: deferred Extremities exam: PRESENT: full ROM. ABSENT: calf tenderness, clubbing, pedal edema Musculoskeletal exam: PRESENT: ambulatory, full ROM, tenderness - lumbar sacral tenderness Neurological exam: PRESENT: alert, awake, oriented to person, oriented to place , oriented to time, oriented to situation, CN II-XII grossly intact. ABSENT: motor sensory deficit Psychiatric exam: PRESENT: appropriate affect, normal mood. ABSENT: homicidal ideation, suicidal ideation Skin exam: PRESENT: dry, intact, warm. ABSENT: cyanosis, rash Results Laboratory Results: 05/13/17 05:19 05/13/17 05:19 05/13/17 05/13/17 05:19 05:19 WBC 5.7 RBC 2.32 L Hgb 7.9 L Hct 22.7 L MCV 98 H MCH 34.3 H MCHC 34.9 RDW 19.4 H Plt Count 158 Seg Neutrophils % 65.8 Lymphocytes % 19.8 Monocytes % 11.7 Eosinophils % 1.9 Basophils % 0.8 Absolute Neutrophils 3.8 Absolute Lymphocytes 1.1 Absolute Monocytes 0.7 Absolute Eosinophils 0.1 Absolute Basophils 0.0 Sodium 139.6 Potassium 4.0 Chloride 114 H Carbon Dioxide 21 L Anion Gap 5 BUN 10 Creatinine 0.79 Est GFR ( Amer) > 60 Est GFR (Non-Af Amer) > 60 Glucose 81 Calcium 8.4 Magnesium 1.8 Assessment & Plan - Diagnosis (1) Gram-negative bacteremia Is this a current diagnosis for this admission?: Yes Plan: 2 out of 2 blood cultures positive for gram negative rods. Culture grew ecoli, with multiple drug resistance and had initially been treated with macrobid. Patient is allergic to cephalosporins. She has had one dose of IV invanz. Will continue for another 24 hrs then transition to oral therapy (2) UTI (urinary tract infection) Qualifiers: Urinary tract infection type: acute cystitis Hematuria presence: with hematuria Qualified Code(s): N30.01 - Acute cystitis with hematuria Is this a current diagnosis for this admission?: Yes Plan: Culture from the ER on 05/09, shows ecoli resistant to multiple drugs including Macrobid. She is doing well with IV Invanz (3) Hyponatremia Is this a current diagnosis for this admission?: Yes Plan: Resolved (4) Metabolic acidosis Is this a current diagnosis for this admission?: Yes Plan: Improving. Most likely secondary to bacteremia and dehydration (5) Nausea and vomiting Qualifiers: Vomiting Intractability: non-intractable Is this a current diagnosis for this admission?: Yes Plan: Zofran prior to meals has helped with appetite (6) Hypokalemia Is this a current diagnosis for this admission?: Yes Plan: Repleted as needed (7) Hx of multiple myeloma Is this a current diagnosis for this admission?: Yes Plan: Consult Dr. Mohamud. Physical therapy and pain control (8) Low back pain Qualifiers: Chronicity: unspecified Back pain laterality: unspecified Sciatica presence: without sciatica Qualified Code(s): M54.5 - Low back pain Is this a current diagnosis for this admission?: Yes Plan: We will add Lidoderm patch. Progression of multiple myeloma and multiple recent falls Patient has multiple sensitivities to opioid analgesics. Tramadol has not worked in the past. - Time Time Spent with patient: 25-34 minutes Medications reviewed and adjusted accordingly: Yes Anticipated discharge: Home with Homehealth Within: within 24 hours - Inpatient Certification Based on my medical assessment, after consideration of the patient's comorbidities, presenting symptoms, or acuity I expect that the services needed warrant INPATIENT care.: Yes I certify that my determination is in accordance with my understanding of Medicare's requirements for reasonable and necessary INPATIENT services [42 CFR 412.3e].: Yes Medical Necessity: Need For IV Fluids, Need for IV Antibiotics
[2017-05-13] MEDS: ASPIRIN 81 MG TABLET, CHEWABLE PO SCH (10:21)
[2017-05-13] MEDS: DOCUSATE SODIUM 100 MG CAPSULE PO SCH (10:21)
[2017-05-13] MEDS: ACYCLOVIR 200 MG CAPSULE PO SCH (10:21)
[2017-05-13] MEDS: LANSOPRAZOLE 30 MG TAB.RAP.DR PO SCH ×2 (10:22→21:03)
[2017-05-13] MEDS: ATENOLOL 50 MG TABLET PO SCH (10:22)
[2017-05-13] MEDS: LIDOCAINE 5% (700 MG) TRANSDERMAL ADH..PATCH TP SCH (10:23)
[2017-05-13] MEDS: BACITRACIN ZINC OINTMENT 15 GM TP SCH ×2 (10:23→17:14)
--- NOTE | 2017-05-13 11:01 | Physician Advisory Note ---
Physician Advisor ProgressNote .: Pursuant to the plan for [facility], I have reviewed the medical record for this patient. Physician Advisor Statement: Nice documentation of hyponatremia! Please consider documentin. Whenever there is bacteremia, please state whether or not you believe there was SEPSIS present! "Sepsis, present on adm, due to GN UTI, evidenced by fever to 103, tachycardia, 2/2 (+)BCs on adm, acute metabolic acidosis" Please don't say both "bacteremia" & "sepsis", because coders will have to ask which it was - they take "bacteremia" as a passing mild issue, while sepsis is a big issue, and documenting both requires them to query which one it was.... 2. "Acute metabolic acidosis, likely due to sepsis" 3. "multiple myeloma" - not "h/o", since still dealing with this! Thanks! CK
[2017-05-13] MEDS: ERTAPENEM SODIUM 1 GM in NORMAL SALINE 50 ML IV SCH (20:22)
[2017-05-13] MEDS: PHARMACY COMMUNICATION ORDER MC SCH (21:17)
[2017-05-14] MEDS: HEPARIN SOD (PORCINE) 5,000 UNIT/ML 1 ML SYRINGE SUBCUT SCH ×3 (05:20→21:42)
[2017-05-14 08:48] LABS: HEMATOCRIT 24.7 % (36.0-47.0); HEMOGLOBIN 8.7 g/dL (12.0-15.5); HGB HCT DIFFERENCE 1.4; MEAN CORPUSCULAR HEMOGLOBIN 34.8 pg (27.0-33.4); MEAN CORPUSCULAR HGB CONC 35.2 g/dL (32.0-36.0); MEAN CORPUSCULAR VOLUME 99 fl (80-97); RED CELL DISTRIBUTION WIDTH 19.2 % (11.5-14.0); WHITE BLOOD COUNT 5.5 10^3/uL (4.0-10.5)
--- NOTE | 2017-05-14 08:52 | PDOC PROGRESS REPORT ---
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 Physical Exam Vital Signs: Temp Pulse Resp BP Pulse Ox 97.8 F 71 18 141/78 H 95 05/14/17 07:44 05/14/17 07:44 05/14/17 07:44 05/14/17 07:44 05/14/17 07:44 Intake & Output 05/13/17 05/14/17 05/15/17 06:59 06:59 06:59 Intake Total 947 1186 Output Total 500 Balance 947 686 Weight 53.4 kg 53.1 kg General appearance: PRESENT: no acute distress, well-developed, well-nourished Head exam: PRESENT: atraumatic, normocephalic Eye exam: PRESENT: conjunctiva pink, EOMI, PERRLA. ABSENT: scleral icterus Ear exam: PRESENT: normal external ear exam Mouth exam: PRESENT: moist, tongue midline Neck exam: ABSENT: carotid bruit, JVD, lymphadenopathy, thyromegaly Respiratory exam: PRESENT: clear to auscultation cricket. ABSENT: rales, rhonchi, wheezes Cardiovascular exam: PRESENT: RRR. ABSENT: diastolic murmur, rubs, systolic murmur Pulses: PRESENT: normal dorsalis pedis pul Vascular exam: PRESENT: normal capillary refill GI/Abdominal exam: PRESENT: normal bowel sounds, soft. ABSENT: distended, guarding, mass, organolmegaly, rebound, tenderness Rectal exam: PRESENT: deferred Extremities exam: PRESENT: full ROM. ABSENT: calf tenderness, clubbing, pedal edema Neurological exam: PRESENT: alert, awake, oriented to person, oriented to place , oriented to time, oriented to situation, CN II-XII grossly intact. ABSENT: motor sensory deficit Psychiatric exam: PRESENT: appropriate affect, normal mood. ABSENT: homicidal ideation, suicidal ideation Skin exam: PRESENT: dry, intact, warm. ABSENT: cyanosis, rash Results Laboratory Results: 05/11/17 18:43 Blood Blood Culture - Final Pasteurella Multocida 05/11/17 17:43 Blood Blood Culture - Final Pasteurella Multocida Assessment & Plan - Diagnosis (1) Sepsis Qualifiers: Sepsis type: Escherichia coli Qualified Code(s): A41.51 - Sepsis due to Escherichia coli [E. coli] Is this a current diagnosis for this admission?: Yes Plan: Previous sepsis initially thought to be secondary to E. coli, now felt to be secondary to Pasteurella. This has improved. I have discussed this with hospitalist team, unsure of which antibiotic to ultimately discharge her with. She may need a combination of both nitrofurantoin plus ampicillin, but I would like hospitalist team to discuss this with infectious disease to come up with the plan. (2) UTI (urinary tract infection) Qualifiers: Urinary tract infection type: acute cystitis Hematuria presence: with hematuria Qualified Code(s): N30.01 - Acute cystitis with hematuria Is this a current diagnosis for this admission?: Yes Plan: Continue with current antibiotic regimen, discussion as above (3) Multiple myeloma in relapse Is this a current diagnosis for this admission?: Yes Plan: Patient with active myeloma, we do not have the follow-up labs to see how the first 6 weeks of treatment have helped, we probably will have them back by Wednesday. I will discuss it further then. She will continue on treatment as an outpatient but will be on a treatment fold for about a week post discharge. We would like to see her 1 week post discharge. (4) Anemia Qualifiers: Anemia type: other cause Other causes of anemia: antineoplastic chemotherapy Qualified Code(s): D64.81 - Anemia due to antineoplastic chemotherapy; T45.1X5A - Adverse effect of antineoplastic and immunosuppressive drugs, initial encounter Is this a current diagnosis for this admission?: Yes Plan: Anemia secondary to previous chemotherapy, hemoglobin was down to 7.9, repeated today, if it is in the low sevens we will plan on transfusing 2 units of packed red blood cells. - Time Time Spent with patient: 35 or more minutes Critical Time spent with patient: 35 or more minutes - Inpatient Certification Based on my medical assessment, after consideration of the patient's comorbidities, presenting symptoms, or acuity I expect that the services needed warrant INPATIENT care.: Yes I certify that my determination is in accordance with my understanding of Medicare's requirements for reasonable and necessary INPATIENT services [42 CFR 412.3e].: Yes Medical Necessity: Failure to Improve With Outpatient Therapy, Need for IV Antibiotics
[2017-05-14 09:09] LABS: ALANINE AMINOTRANSFERASE 24 U/L (9-52); ALBUMIN 2.6 g/dL (3.5-5.0); ALKALINE PHOSPHATASE 148 U/L (38-126); ANION GAP 7 (5-19); ASPARTATE AMINO TRANSFERASE 27 U/L (14-36); BILIRUBIN,DIRECT 0.4 mg/dL (0.0-0.4); BILIRUBIN,TOTAL 0.5 mg/dL (0.2-1.3); BLOOD UREA NITROGEN 8 mg/dL (7-20); CALCIUM 8.6 mg/dL (8.4-10.2); CARBON DIOXIDE 22 mmol/L (22-30); CHLORIDE 110 mmol/L (98-107); CREATININE RESULT 0.83 mg/dL (0.52-1.25); GLUCOSE 147 mg/dL (75-110); POTASSIUM 3.7 mmol/L (3.6-5.0); SODIUM 139.4 mmol/L (137-145)
[2017-05-14 09:15] LABS: TOTAL PROTEIN 10.8 g/dL (6.3-8.2)
[2017-05-14 09:24] LABS: BAND NEUTROPHILS % (MANUAL) 3 % (3-5); BASOPHILS % (MANUAL) 1 % (0-2); EOSINOPHILS % (MANUAL) 1 % (0-6); LYMPHOCYTES % (MANUAL) 15 % (13-45); TOTAL CELLS COUNTED 100
[2017-05-14 09:25] LABS: TOXIC GRANULATION SLIGHT
[2017-05-14 09:27] LABS: ANISOCYTOSIS 2+; POLYCHROMASIA SLIGHT; TEAR DROP CELLS SLIGHT
[2017-05-14 09:28] LABS: PLATELET CLUMPS PRESENT
[2017-05-14] MEDS: ONDANSETRON 4 MG TAB.RAPDIS PO SCH ×3 (10:00→12:34)
[2017-05-14] MEDS: ATENOLOL 50 MG TABLET PO SCH (10:01)
[2017-05-14] MEDS: LANSOPRAZOLE 30 MG TAB.RAP.DR PO SCH ×2 (10:01→21:39)
[2017-05-14] MEDS: ACYCLOVIR 200 MG CAPSULE PO SCH (10:01)
[2017-05-14] MEDS: ASPIRIN 81 MG TABLET, CHEWABLE PO SCH (10:02)
[2017-05-14] MEDS: DOCUSATE SODIUM 100 MG CAPSULE PO SCH (10:02)
[2017-05-14] MEDS: LIDOCAINE 5% (700 MG) TRANSDERMAL ADH..PATCH TP SCH (10:07)
[2017-05-14] MEDS: BACITRACIN ZINC OINTMENT 15 GM TP SCH ×2 (10:09→18:36)
--- NOTE | 2017-05-14 14:39 | PDOC PROGRESS REPORT ---
Subjective Progress Note for:: 05/14/17 Subjective:: Pt states that she had rescued a kitten that was wild. Pt states that the kitten bite her on her thumb 3 times. Pt states that she forgot to mention it when to went to her Oncologist appointment. Oncologist called in regards to pt' s antibiotics. Physical Exam Vital Signs: Temp Pulse Resp BP Pulse Ox 98.4 F 69 18 144/79 H 97 05/14/17 11:54 05/14/17 11:54 05/14/17 11:54 05/14/17 11:54 05/14/17 11:54 Intake & Output 05/13/17 05/14/17 05/15/17 06:59 06:59 06:59 Intake Total 947 1186 358 Output Total 500 Balance 947 686 358 Weight 53.4 kg 53.1 kg General appearance: PRESENT: no acute distress, well-developed, well-nourished Head exam: PRESENT: atraumatic, normocephalic Eye exam: PRESENT: conjunctival injection Ear exam: PRESENT: normal external ear exam Mouth exam: PRESENT: moist, tongue midline Neck exam: ABSENT: carotid bruit, JVD, lymphadenopathy, thyromegaly Respiratory exam: PRESENT: clear to auscultation cricket. ABSENT: rales, rhonchi, wheezes Cardiovascular exam: PRESENT: RRR. ABSENT: diastolic murmur, rubs, systolic murmur Pulses: PRESENT: normal dorsalis pedis pul Vascular exam: PRESENT: normal capillary refill GI/Abdominal exam: PRESENT: normal bowel sounds, soft. ABSENT: distended, guarding, mass, organolmegaly, rebound, tenderness Rectal exam: PRESENT: deferred Extremities exam: PRESENT: full ROM. ABSENT: calf tenderness, clubbing, pedal edema Neurological exam: PRESENT: alert, awake, oriented to person, oriented to place , oriented to time, oriented to situation, CN II-XII grossly intact. ABSENT: motor sensory deficit Psychiatric exam: PRESENT: appropriate affect, normal mood. ABSENT: homicidal ideation, suicidal ideation Skin exam: PRESENT: dry, intact, warm. ABSENT: cyanosis, rash Results Laboratory Results: 05/14/17 08:38 05/14/17 08:38 05/14/17 05/14/17 08:38 08:38 WBC 5.5 RBC 2.50 L Hgb 8.7 L Hct 24.7 L MCV 99 H MCH 34.8 H MCHC 35.2 RDW 19.2 H Plt Count 216 Seg Neutrophils % Not Reportable Lymphocytes % Not Reportable Monocytes % Not Reportable Eosinophils % Not Reportable Basophils % Not Reportable Absolute Neutrophils Not Reportable Absolute Lymphocytes Not Reportable Absolute Monocytes Not Reportable Absolute Eosinophils Not Reportable Absolute Basophils Not Reportable Sodium 139.4 Potassium 3.7 Chloride 110 H Carbon Dioxide 22 Anion Gap 7 BUN 8 Creatinine 0.83 Est GFR ( Amer) > 60 Est GFR (Non-Af Amer) > 60 Glucose 147 H Calcium 8.6 Total Bilirubin 0.5 AST 27 ALT 24 Alkaline Phosphatase 148 H Total Protein 10.8 H Albumin 2.6 L 05/11/17 18:43 Blood Blood Culture - Final Pasteurella Multocida 05/11/17 17:43 Blood Blood Culture - Final Pasteurella Multocida Assessment & Plan - Diagnosis (1) Sepsis Qualifiers: Sepsis type: sepsis due to unspecified organism Qualified Code(s): A41.9 - Sepsis, unspecified organism Is this a current diagnosis for this admission?: Yes Plan: Secondary to Pasteurella Multocida: Will add Doxycycline 100mg PO BID for 14 days. Want to make sure pt is able to tolerate antibiotic. Will continue Ertapenem 4/7 days. Recommend treating E. Coli Acute Cystitis with Ertapenem for total of 7 days. (2) UTI (urinary tract infection) Qualifiers: Urinary tract infection type: acute cystitis Hematuria presence: with hematuria Qualified Code(s): N30.01 - Acute cystitis with hematuria Is this a current diagnosis for this admission?: Yes Plan: Secondary to E. Coli: Will continue Ertapenem for 7 days total. Pt currently . (3) Anemia Qualifiers: Anemia type: other cause Other causes of anemia: antineoplastic chemotherapy Qualified Code(s): D64.81 - Anemia due to antineoplastic chemotherapy; T45.1X5A - Adverse effect of antineoplastic and immunosuppressive drugs, initial encounter Is this a current diagnosis for this admission?: Yes Plan: Oncology planning to transfuse PRBC (4) Metabolic acidosis Is this a current diagnosis for this admission?: Yes Plan: Resolved. (5) Multiple myeloma in relapse Is this a current diagnosis for this admission?: Yes Plan: Oncology planning to transfuse pt. (6) Nausea and vomiting Qualifiers: Vomiting Intractability: non-intractable Is this a current diagnosis for this admission?: Yes Plan: alice (7) Low back pain Qualifiers: Chronicity: unspecified Back pain laterality: unspecified Sciatica presence: without sciatica Qualified Code(s): M54.5 - Low back pain Is this a current diagnosis for this admission?: Yes Plan: Continue current treatment pt. - Time Time Spent with patient: 15-24 minutes
[2017-05-14] MEDS: ERTAPENEM SODIUM 1 GM in NORMAL SALINE 50 ML IV SCH (21:37)
[2017-05-14] MEDS: DOXYCYCLINE HYCLATE 100 MG TABLET PO SCH (21:38)
[2017-05-14] MEDS: PHARMACY COMMUNICATION ORDER MC SCH (23:24)
[2017-05-15] MEDS: HEPARIN SOD (PORCINE) 5,000 UNIT/ML 1 ML SYRINGE SUBCUT SCH ×3 (05:55→21:03)
[2017-05-15 06:41] LABS: BLOOD UREA NITROGEN 7 mg/dL (7-20); CALCIUM 8.3 mg/dL (8.4-10.2); CREATININE RESULT 0.84 mg/dL (0.52-1.25); GLUCOSE 99 mg/dL (75-110); POTASSIUM 3.7 mmol/L (3.6-5.0)
[2017-05-15 06:51] LABS: ANION GAP 5 (5-19); CARBON DIOXIDE 26 mmol/L (22-30); CHLORIDE 110 mmol/L (98-107); SODIUM 141.2 mmol/L (137-145)
[2017-05-15 07:43] LABS: HEMATOCRIT 23.9 % (36.0-47.0); HEMOGLOBIN 8.1 g/dL (12.0-15.5); HGB HCT DIFFERENCE 0.4; MEAN CORPUSCULAR HEMOGLOBIN 33.6 pg (27.0-33.4); MEAN CORPUSCULAR VOLUME 99 fl (80-97); RED BLOOD COUNT 2.42 10^6/uL (3.72-5.28); RED CELL DISTRIBUTION WIDTH 18.8 % (11.5-14.0); WHITE BLOOD COUNT 5.4 10^3/uL (4.0-10.5)
[2017-05-15 07:59] LABS: BAND NEUTROPHILS % (MANUAL) 2 % (3-5); BASOPHILS % (MANUAL) 3 % (0-2); EOSINOPHILS % (MANUAL) 0 % (0-6); LYMPHOCYTES % (MANUAL) 13 % (13-45); TOTAL CELLS COUNTED 100
[2017-05-15 08:01] LABS: ANISOCYTOSIS 1+; POLYCHROMASIA SLIGHT
[2017-05-15] MEDS: ONDANSETRON 4 MG TAB.RAPDIS PO SCH ×3 (08:39→17:48)
--- NOTE | 2017-05-15 11:04 | PDOC PROGRESS REPORT ---
Subjective Progress Note for:: 05/15/17 Subjective:: Pt states that she is having back pain from falling at home. Pt states that the Lidoderm patches help decrease pain sensation. Physical Exam Vital Signs: Temp Pulse Resp BP Pulse Ox 98.3 F 77 18 130/79 H 94 05/15/17 07:30 05/15/17 07:30 05/15/17 07:30 05/15/17 07:30 05/15/17 07:30 Intake & Output 05/14/17 05/15/17 05/16/17 06:59 06:59 06:59 Intake Total 1186 1778 Output Total 500 Balance 686 1778 Weight 53.1 kg 53.1 kg General appearance: PRESENT: no acute distress, well-developed, well-nourished Head exam: PRESENT: atraumatic, normocephalic Eye exam: PRESENT: conjunctiva pink, EOMI. ABSENT: scleral icterus Ear exam: PRESENT: normal external ear exam Mouth exam: PRESENT: moist, tongue midline Neck exam: ABSENT: carotid bruit, JVD, lymphadenopathy, thyromegaly Respiratory exam: PRESENT: clear to auscultation cricket. ABSENT: rales, rhonchi, wheezes Cardiovascular exam: PRESENT: RRR. ABSENT: diastolic murmur, rubs, systolic murmur Pulses: PRESENT: normal carotid pulses GI/Abdominal exam: PRESENT: normal bowel sounds, soft. ABSENT: distended, guarding, mass, organolmegaly, rebound, tenderness Rectal exam: PRESENT: deferred Extremities exam: PRESENT: full ROM. ABSENT: calf tenderness, clubbing, pedal edema Neurological exam: PRESENT: alert, awake, oriented to person, oriented to place , oriented to time, oriented to situation, CN II-XII grossly intact. ABSENT: motor sensory deficit Psychiatric exam: PRESENT: appropriate affect, normal mood. ABSENT: homicidal ideation, suicidal ideation Skin exam: PRESENT: dry, intact, warm. ABSENT: cyanosis, rash Results Laboratory Results: 05/15/17 06:01 05/15/17 06:01 05/15/17 05/15/17 06:01 06:01 WBC 5.4 RBC 2.42 L Hgb 8.1 L Hct 23.9 L MCV 99 H MCH 33.6 H MCHC 34.0 RDW 18.8 H Plt Count 256 Seg Neutrophils % Not Reportable Lymphocytes % Not Reportable Monocytes % Not Reportable Eosinophils % Not Reportable Basophils % Not Reportable Absolute Neutrophils Not Reportable Absolute Lymphocytes Not Reportable Absolute Monocytes Not Reportable Absolute Eosinophils Not Reportable Absolute Basophils Not Reportable Sodium 141.2 Potassium 3.7 Chloride 110 H Carbon Dioxide 26 Anion Gap 5 BUN 7 Creatinine 0.84 Est GFR ( Amer) > 60 Est GFR (Non-Af Amer) > 60 Glucose 99 Calcium 8.3 L Assessment & Plan - Diagnosis (1) Sepsis Qualifiers: Sepsis type: sepsis due to unspecified organism Qualified Code(s): A41.9 - Sepsis, unspecified organism Is this a current diagnosis for this admission?: Yes Plan: Secondary to Pasteurella Multocida: Will add Doxycycline 100mg PO BID for 14 days. Want to make sure pt is able to tolerate antibiotic. Will continue Ertapenem 5/7 days. Recommend treating E. Coli Acute Cystitis with Ertapenem for total of 7 days. (2) UTI (urinary tract infection) Qualifiers: Urinary tract infection type: acute cystitis Hematuria presence: with hematuria Qualified Code(s): N30.01 - Acute cystitis with hematuria Is this a current diagnosis for this admission?: Yes Plan: Secondary to E. Coli: Will continue Ertapenem for 7 days total. Pt currently . (3) Anemia Qualifiers: Anemia type: other cause Other causes of anemia: antineoplastic chemotherapy Qualified Code(s): D64.81 - Anemia due to antineoplastic chemotherapy; T45.1X5A - Adverse effect of antineoplastic and immunosuppressive drugs, initial encounter Is this a current diagnosis for this admission?: Yes Plan: Oncology planning to transfuse PRBC (4) Metabolic acidosis Is this a current diagnosis for this admission?: Yes Plan: Resolved. (5) Multiple myeloma in relapse Is this a current diagnosis for this admission?: Yes Plan: Oncology planning to transfuse pt. (6) Nausea and vomiting Qualifiers: Vomiting Intractability: non-intractable Is this a current diagnosis for this admission?: Yes Plan: zofran (7) Low back pain Qualifiers: Chronicity: unspecified Back pain laterality: unspecified Sciatica presence: without sciatica Qualified Code(s): M54.5 - Low back pain Is this a current diagnosis for this admission?: Yes Plan: Continue current treatment pt. - Time Time Spent with patient: 15-24 minutes - Discharge home on Wednesday after pt completes IV treatment for UTI.
[2017-05-15] MEDS: LIDOCAINE 5% (700 MG) TRANSDERMAL ADH..PATCH TP SCH (11:30)
[2017-05-15] MEDS: ATENOLOL 50 MG TABLET PO SCH (11:30)
[2017-05-15] MEDS: DOXYCYCLINE HYCLATE 100 MG TABLET PO SCH ×2 (11:31→21:07)
[2017-05-15] MEDS: ACYCLOVIR 200 MG CAPSULE PO SCH (11:31)
[2017-05-15] MEDS: ASPIRIN 81 MG TABLET, CHEWABLE PO SCH (11:31)
[2017-05-15] MEDS: DOCUSATE SODIUM 100 MG CAPSULE PO SCH (11:31)
[2017-05-15] MEDS: BACITRACIN ZINC OINTMENT 15 GM TP SCH ×2 (11:32→17:49)
[2017-05-15] MEDS: LANSOPRAZOLE 30 MG TAB.RAP.DR PO SCH ×2 (11:32→21:07)
[2017-05-15] MEDS: ERTAPENEM SODIUM 1 GM in NORMAL SALINE 50 ML IV SCH (19:49)
[2017-05-15] MEDS: PHARMACY COMMUNICATION ORDER MC SCH (22:06)
[2017-05-16] MEDS: HEPARIN SOD (PORCINE) 5,000 UNIT/ML 1 ML SYRINGE SUBCUT SCH ×3 (05:09→21:21)
[2017-05-16 05:32] LABS: HEMATOCRIT 25.1 % (36.0-47.0); HEMOGLOBIN 8.8 g/dL (12.0-15.5); HGB HCT DIFFERENCE 1.3; MEAN CORPUSCULAR HEMOGLOBIN 34.5 pg (27.0-33.4); MEAN CORPUSCULAR VOLUME 98 fl (80-97); RED BLOOD COUNT 2.55 10^6/uL (3.72-5.28); RED CELL DISTRIBUTION WIDTH 18.4 % (11.5-14.0); WHITE BLOOD COUNT 6.5 10^3/uL (4.0-10.5)
[2017-05-16 06:04] LABS: BAND NEUTROPHILS % (MANUAL) 5 % (3-5); BASOPHILS % (MANUAL) 0 % (0-2); EOSINOPHILS % (MANUAL) 3 % (0-6); LYMPHOCYTES % (MANUAL) 17 % (13-45); TOTAL CELLS COUNTED 100
[2017-05-16 06:07] LABS: ANISOCYTOSIS 2+; OVALOCYTES SLIGHT; POIKILOCYTOSIS SLIGHT; POLYCHROMASIA SLIGHT; TOXIC GRANULATION 1+; TOXIC VACUOLATION PRESENT
[2017-05-16 09:37] LABS: HEMATOCRIT 24.2 % (36.0-47.0); HEMOGLOBIN 8.4 g/dL (12.0-15.5); MEAN CORPUSCULAR HEMOGLOBIN 34.4 pg (27.0-33.4); MEAN CORPUSCULAR HGB CONC 34.9 g/dL (32.0-36.0); MEAN CORPUSCULAR VOLUME 98 fl (80-97); RED BLOOD COUNT 2.46 10^6/uL (3.72-5.28); RED CELL DISTRIBUTION WIDTH 19.1 % (11.5-14.0); WHITE BLOOD COUNT 6.4 10^3/uL (4.0-10.5)
[2017-05-16] MEDS: ASPIRIN 81 MG TABLET, CHEWABLE PO SCH (09:55)
[2017-05-16] MEDS: ATENOLOL 50 MG TABLET PO SCH (09:55)
[2017-05-16] MEDS: ACYCLOVIR 200 MG CAPSULE PO SCH (09:55)
[2017-05-16] MEDS: BACITRACIN ZINC OINTMENT 15 GM TP SCH ×2 (09:56→17:41)
[2017-05-16] MEDS: DOCUSATE SODIUM 100 MG CAPSULE PO SCH (09:57)
[2017-05-16] MEDS: ACETAMINOPHEN 325 MG TABLET PO PRN ×2 (09:57→20:37)
[2017-05-16] MEDS: LANSOPRAZOLE 30 MG TAB.RAP.DR PO SCH ×2 (09:58→21:23)
[2017-05-16] MEDS: ONDANSETRON 4 MG TAB.RAPDIS PO SCH ×3 (10:03→17:41)
[2017-05-16] MEDS: LIDOCAINE 5% (700 MG) TRANSDERMAL ADH..PATCH TP SCH (10:03)
[2017-05-16 10:26] LABS: BAND NEUTROPHILS % (MANUAL) 9 % (3-5); BASOPHILS % (MANUAL) 1 % (0-2); EOSINOPHILS % (MANUAL) 0 % (0-6); LYMPHOCYTES % (MANUAL) 3 % (13-45); TOTAL CELLS COUNTED 100
[2017-05-16 10:28] LABS: ANISOCYTOSIS 1+; HYPOCHROMASIA SLIGHT
--- NOTE | 2017-05-16 10:41 | RADIOLOGY REPORT (SQ) ---
EXAM DESCRIPTION: CHEST SINGLE VIEW COMPLETED DATE/TIME: 05/16/2017 10:01 am REASON FOR STUDY: SOB COMPARISON: 02/12/2017 PET-CT. NUMBER OF VIEWS: One view. TECHNIQUE: Single frontal radiographic view of the chest acquired. LIMITATIONS: None. FINDINGS: LUNGS AND PLEURA: Known bilateral pulmonary masses consistent with metastatic disease. No gross superimposed failure or definitive pneumonia. MEDIASTINUM AND HILAR STRUCTURES: Grossly stable contours. HEART AND VASCULAR STRUCTURES: Normal heart size. BONES: Osteopenic. No aggressive destruction or fracture, but very limited assessment. HARDWARE: None in the chest. OTHER: No other significant finding. IMPRESSION: 1. Known pulmonary metastatic disease. No superimposed pneumonia or failure or pneumoth orax appreciated. TECHNICAL DOCUMENTATION: JOB ID: [id number] [employer]- All Rights Reserved
--- NOTE | 2017-05-16 12:59 | PDOC PROGRESS REPORT ---
Subjective Progress Note for:: 05/16/17 Subjective:: Pt this morning pt was found to have fever 102 F. Physical Exam Vital Signs: Temp Pulse Resp BP Pulse Ox 98.5 F 98 18 161/79 H 91 L 05/16/17 08:00 05/16/17 08:00 05/16/17 08:00 05/16/17 08:00 05/16/17 08:00 Intake & Output 05/15/17 05/16/17 05/17/17 06:59 06:59 06:59 Intake Total 1778 438 Output Total 1100 Balance 1778 -662 Weight 53.1 kg 53.7 kg General appearance: PRESENT: mild distress, thin, other - Pt was shaking. Head exam: PRESENT: atraumatic, normocephalic Eye exam: PRESENT: conjunctiva pink, EOMI. ABSENT: scleral icterus Ear exam: PRESENT: normal external ear exam Mouth exam: PRESENT: moist, tongue midline Neck exam: ABSENT: carotid bruit, JVD, lymphadenopathy, thyromegaly Respiratory exam: PRESENT: clear to auscultation cricket. ABSENT: rales, rhonchi, wheezes Cardiovascular exam: PRESENT: RRR. ABSENT: diastolic murmur, rubs, systolic murmur Pulses: PRESENT: normal dorsalis pedis pul Vascular exam: PRESENT: normal capillary refill GI/Abdominal exam: PRESENT: normal bowel sounds, soft. ABSENT: distended, guarding, mass, organolmegaly, rebound, tenderness Rectal exam: PRESENT: deferred Extremities exam: PRESENT: full ROM. ABSENT: calf tenderness, clubbing, pedal edema Neurological exam: PRESENT: alert, awake, oriented to person, oriented to place , oriented to time, oriented to situation, CN II-XII grossly intact. ABSENT: motor sensory deficit Psychiatric exam: PRESENT: appropriate affect, normal mood. ABSENT: homicidal ideation, suicidal ideation Skin exam: PRESENT: dry, intact, warm. ABSENT: cyanosis, rash Results Laboratory Results: 05/16/17 09:01 05/15/17 06:01 05/16/17 05/16/17 04:49 09:01 WBC 6.5 6.4 RBC 2.55 L 2.46 L Hgb 8.8 L 8.4 L Hct 25.1 L 24.2 L MCV 98 H 98 H MCH 34.5 H 34.4 H MCHC 35.0 34.9 RDW 18.4 H 19.1 H Plt Count 253 261 Seg Neutrophils % Not Reportable Not Reportable Lymphocytes % Not Reportable Not Reportable Monocytes % Not Reportable Not Reportable Eosinophils % Not Reportable Not Reportable Basophils % Not Reportable Not Reportable Absolute Neutrophils Not Reportable Not Reportable Absolute Lymphocytes Not Reportable Not Reportable Absolute Monocytes Not Reportable Not Reportable Absolute Eosinophils Not Reportable Not Reportable Absolute Basophils Not Reportable Not Reportable 05/13/17 23:58 Clean Catch Midstream Urine Culture - Final NO GROWTH 2 DAYS Impressions: Chest X-Ray 05/16/17 00:00 IMPRESSION: 1. Known pulmonary metastatic disease. No superimposed pneumonia or failure or pneumothorax appreciated. Assessment & Plan - Diagnosis (1) Sepsis Qualifiers: Sepsis type: sepsis due to unspecified organism Qualified Code(s): A41.9 - Sepsis, unspecified organism Is this a current diagnosis for this admission?: Yes Plan: Secondary to Pasteurella Multocida: Will continue Ertapenem 6/7 days. Recommend treating E. Coli Acute Cystitis with Ertapenem for total of 7 days. Will hold Doxycycline due to fever. Question if this is a drug fever. (2) UTI (urinary tract infection) Qualifiers: Urinary tract infection type: acute cystitis Hematuria presence: with hematuria Qualified Code(s): N30.01 - Acute cystitis with hematuria Is this a current diagnosis for this admission?: Yes Plan: Secondary to E. Coli: Will continue Ertapenem for 7 days total. Pt currently 6 /7. (3) Fever Qualifiers: Fever type: drug-induced Qualified Code(s): R50.2 - Drug induced fever Is this a current diagnosis for this admission?: Yes Plan: Could be Drug Fever. Pt with multiple drug allergies. Will monitor. Will stop doxycycline. Will repeat blood cultures and check UA (4) Anemia Qualifiers: Anemia type: other cause Other causes of anemia: antineoplastic chemotherapy Qualified Code(s): D64.81 - Anemia due to antineoplastic chemotherapy; T45.1X5A - Adverse effect of antineoplastic and immunosuppressive drugs, initial encounter Is this a current diagnosis for this admission?: Yes Plan: Oncology planning to transfuse PRBC if Hemoglobin 8 (5) Metabolic acidosis Is this a current diagnosis for this admission?: Yes Plan: Resolved. (6) Multiple myeloma in relapse Is this a current diagnosis for this admission?: Yes Plan: Oncology planning to transfuse pt. (7) Nausea and vomiting Qualifiers: Vomiting Intractability: non-intractable Is this a current diagnosis for this admission?: Yes Plan: alice (8) Low back pain Qualifiers: Chronicity: unspecified Back pain laterality: unspecified Sciatica presence: without sciatica Qualified Code(s): M54.5 - Low back pain Is this a current diagnosis for this admission?: Yes Plan: Continue current treatment pt. - Time Time Spent with patient: 15-24 minutes
[2017-05-16 15:27] LABS: APPEARANCE,URINE SLIGHTLY-CLOUDY; BILIRUBIN,URINE NEGATIVE (NEGATIVE); GLUCOSE, URINE NEGATIVE (NEGATIVE); KETONES,URINE NEGATIVE (NEGATIVE); LEUKOCYTE ESTERASE,URINE MODERATE (NEGATIVE); NITRITE,URINE NEGATIVE (NEGATIVE); PROTEIN,URINE 100 mg/dL (NEGATIVE); URINE SPECIFIC GRAVITY 1.019
[2017-05-16] MEDS: ERTAPENEM SODIUM 1 GM in NORMAL SALINE 50 ML IV SCH (20:36)
[2017-05-16] MEDS: PHARMACY COMMUNICATION ORDER MC SCH (21:24)
[2017-05-17] MEDS ORDERED: ACETAMINOPHEN 325 MG TABLET PO PRN (05:00)
[2017-05-17] MEDS ORDERED: DIPHENHYDRAMINE HCL 25 MG CAPSULE PO PRN (05:00)
[2017-05-17] MEDS: HEPARIN SOD (PORCINE) 5,000 UNIT/ML 1 ML SYRINGE SUBCUT SCH ×3 (05:02→21:24)
[2017-05-17 06:28] LABS: ABSOLUTE BASOPHILS # (AUTO) 0.1 10^3/uL (0.0-0.2); ABSOLUTE EOSINOPHILS # (AUTO) 0.2 10^3/uL (0.0-0.6); ABSOLUTE LYMPHOCYTES (AUTO) 1.2 10^3/uL (0.5-4.7); ABSOLUTE MONOCYTES (AUTO) 0.8 10^3/uL (0.1-1.4); ABSOLUTE NEUT (AUTO) 3.5 10^3/uL (1.7-8.2); BASOPHILS % (AUTO) 1.2 % (0-2); EOSINOPHILS % (AUTO) 3.7 % (0-6); HGB HCT DIFFERENCE 0.4; LYMPHOCYTES % (AUTO) 20.8 % (13-45); MEAN CORPUSCULAR HEMOGLOBIN 33.4 pg (27.0-33.4); MEAN CORPUSCULAR HGB CONC 33.9 g/dL (32.0-36.0); MEAN CORPUSCULAR VOLUME 99 fl (80-97); MONOCYTES % (AUTO) 13.5 % (3-13); RED BLOOD COUNT 2.33 10^6/uL (3.72-5.28); RED CELL DISTRIBUTION WIDTH 18.5 % (11.5-14.0); SEGMENTED NEUTROPHILS % (AUTO) 60.8 % (42-78); WHITE BLOOD COUNT 5.8 10^3/uL (4.0-10.5)
[2017-05-17 06:40] LABS: HEMOGLOBIN 7.8 g/dL (12.0-15.5)
[2017-05-17 06:45] LABS: BLOOD UREA NITROGEN 11 mg/dL (7-20); CALCIUM 8.3 mg/dL (8.4-10.2); CARBON DIOXIDE 26 mmol/L (22-30); CREATININE RESULT 0.83 mg/dL (0.52-1.25); GLUCOSE 88 mg/dL (75-110); POTASSIUM 3.7 mmol/L (3.6-5.0)
[2017-05-17 06:58] LABS: ANION GAP 5 (5-19); CHLORIDE 107 mmol/L (98-107); SODIUM 137.9 mmol/L (137-145)
[2017-05-17] MEDS: ONDANSETRON 4 MG TAB.RAPDIS PO SCH ×3 (08:32→16:25)
--- NOTE | 2017-05-17 09:15 | PDOC PROGRESS REPORT ---
Subjective Progress Note for:: 05/17/17 Subjective:: Patient had fever spike yesterday Feeling better today Physical Exam Vital Signs: Temp Pulse Resp BP Pulse Ox 98.2 F 77 16 127/70 H 94 05/17/17 07:12 05/17/17 07:12 05/17/17 07:12 05/17/17 07:12 05/17/17 07:12 Intake & Output 05/16/17 05/17/17 05/18/17 06:59 06:59 06:59 Intake Total 438 390 Output Total 1100 1150 Balance -662 -760 Weight 53.7 kg 53.7 kg General appearance: PRESENT: no acute distress, well-developed, well-nourished Head exam: PRESENT: atraumatic, normocephalic Eye exam: PRESENT: conjunctiva pink, EOMI, PERRLA. ABSENT: scleral icterus Ear exam: PRESENT: normal external ear exam Mouth exam: PRESENT: moist, tongue midline Neck exam: ABSENT: carotid bruit, JVD, lymphadenopathy, thyromegaly Respiratory exam: PRESENT: clear to auscultation cricket. ABSENT: rales, rhonchi, wheezes Cardiovascular exam: PRESENT: RRR. ABSENT: diastolic murmur, rubs, systolic murmur Pulses: PRESENT: normal dorsalis pedis pul Vascular exam: PRESENT: normal capillary refill GI/Abdominal exam: PRESENT: normal bowel sounds, soft. ABSENT: distended, guarding, mass, organolmegaly, rebound, tenderness Rectal exam: PRESENT: deferred Extremities exam: PRESENT: full ROM. ABSENT: calf tenderness, clubbing, pedal edema Neurological exam: PRESENT: alert, awake, oriented to person, oriented to place , oriented to time, oriented to situation, CN II-XII grossly intact. ABSENT: motor sensory deficit Psychiatric exam: PRESENT: appropriate affect, normal mood. ABSENT: homicidal ideation, suicidal ideation Skin exam: PRESENT: dry, intact, warm. ABSENT: cyanosis, rash Results Laboratory Results: 05/17/17 05:39 05/17/17 05:39 05/16/17 05/16/17 05/17/17 09:01 14:46 05:39 WBC 6.4 5.8 RBC 2.46 L 2.33 L Hgb 8.4 L 7.8 L Hct 24.2 L 23.0 L MCV 98 H 99 H MCH 34.4 H 33.4 MCHC 34.9 33.9 RDW 19.1 H 18.5 H Plt Count 261 247 Seg Neutrophils % Not Reportable 60.8 Lymphocytes % Not Reportable 20.8 Monocytes % Not Reportable 13.5 H Eosinophils % Not Reportable 3.7 Basophils % Not Reportable 1.2 Absolute Neutrophils Not Reportable 3.5 Absolute Lymphocytes Not Reportable 1.2 Absolute Monocytes Not Reportable 0.8 Absolute Eosinophils Not Reportable 0.2 Absolute Basophils Not Reportable 0.1 Sodium Potassium Chloride Carbon Dioxide Anion Gap BUN Creatinine Est GFR ( Amer) Est GFR (Non-Af Amer) Glucose Calcium Urine Color YELLOW Urine Appearance SLIGHTLY-CLOUDY Urine pH 6.0 Ur Specific [place] 1.019 Urine Protein 100 H Urine Glucose (UA) NEGATIVE Urine Ketones NEGATIVE Urine Blood SMALL H Urine Nitrite NEGATIVE Ur Leukocyte Esterase MODERATE H Urine WBC (Auto) 40 Urine RBC (Auto) 4 05/17/17 05:39 WBC RBC Hgb Hct MCV MCH MCHC RDW Plt Count Seg Neutrophils % Lymphocytes % Monocytes % Eosinophils % Basophils % Absolute Neutrophils Absolute Lymphocytes Absolute Monocytes Absolute Eosinophils Absolute Basophils Sodium 137.9 Potassium 3.7 Chloride 107 Carbon Dioxide 26 Anion Gap 5 BUN 11 Creatinine 0.83 Est GFR ( Amer) > 60 Est GFR (Non-Af Amer) > 60 Glucose 88 Calcium 8.3 L Urine Color Urine Appearance Urine pH Ur Specific [place] Urine Protein Urine Glucose (UA) Urine Ketones Urine Blood Urine Nitrite Ur Leukocyte Esterase Urine WBC (Auto) Urine RBC (Auto) 05/13/17 23:58 Clean Catch Midstream Urine Culture - Final NO GROWTH 2 DAYS Impressions: Chest X-Ray 05/16/17 00:00 IMPRESSION: 1. Known pulmonary metastatic disease. No superimposed pneumonia or failure or pneumothorax appreciated. Assessment & Plan - Diagnosis (1) Sepsis Qualifiers: Sepsis type: sepsis due to unspecified organism Qualified Code(s): A41.9 - Sepsis, unspecified organism Is this a current diagnosis for this admission?: Yes Plan: Improved, continue with current therapy per hospitalist team (2) UTI (urinary tract infection) Qualifiers: Urinary tract infection type: acute cystitis Hematuria presence: with hematuria Qualified Code(s): N30.01 - Acute cystitis with hematuria Is this a current diagnosis for this admission?: Yes Plan: Patient has been fully treated with ertapenem, (3) Multiple myeloma in relapse Is this a current diagnosis for this admission?: Yes Plan: Patient is progressing, will need to consider different treatment as an outpatient I discussed this with the patient, spent greater than 45 minutes in discussion today (4) Anemia Qualifiers: Anemia type: other cause Other causes of anemia: antineoplastic chemotherapy Qualified Code(s): D64.81 - Anemia due to antineoplastic chemotherapy; T45.1X5A - Adverse effect of antineoplastic and immunosuppressive drugs, initial encounter Is this a current diagnosis for this admission?: Yes Plan: Transfuse today 1 unit of packed red blood cell - Time Time Spent with patient: 35 or more minutes Critical Time spent with patient: 35 or more minutes
[2017-05-17 09:41] LABS: MEAN CORPUSCULAR VOLUME 99 fl (80-97)
[2017-05-17 09:49] LABS: ABSOLUTE EOSINOPHILS # (AUTO) 0.2 10^3/uL (0.0-0.6); ABSOLUTE LYMPHOCYTES (AUTO) 1.4 10^3/uL (0.5-4.7); ABSOLUTE MONOCYTES (AUTO) 0.7 10^3/uL (0.1-1.4); ABSOLUTE NEUT (AUTO) 3.5 10^3/uL (1.7-8.2); BASOPHILS % (AUTO) 0.8 % (0-2); EOSINOPHILS % (AUTO) 3.2 % (0-6); HEMOGLOBIN 8.9 g/dL (12.0-15.5); HGB HCT DIFFERENCE 0.7; LYMPHOCYTES % (AUTO) 23.4 % (13-45); MEAN CORPUSCULAR HEMOGLOBIN 33.9 pg (27.0-33.4); MEAN CORPUSCULAR HGB CONC 34.1 g/dL (32.0-36.0); MONOCYTES % (AUTO) 12.2 % (3-13); RED BLOOD COUNT 2.61 10^6/uL (3.72-5.28); RED CELL DISTRIBUTION WIDTH 18.8 % (11.5-14.0); SEGMENTED NEUTROPHILS % (AUTO) 60.4 % (42-78); WHITE BLOOD COUNT 5.9 10^3/uL (4.0-10.5)
[2017-05-17] MEDS: ASPIRIN 81 MG TABLET, CHEWABLE PO SCH (10:08)
[2017-05-17] MEDS: ATENOLOL 50 MG TABLET PO SCH (10:08)
[2017-05-17] MEDS: LANSOPRAZOLE 30 MG TAB.RAP.DR PO SCH ×2 (10:10→21:34)
[2017-05-17] MEDS: ACYCLOVIR 200 MG CAPSULE PO SCH (10:10)
[2017-05-17] MEDS: DOCUSATE SODIUM 100 MG CAPSULE PO SCH (10:10)
[2017-05-17] MEDS: LIDOCAINE 5% (700 MG) TRANSDERMAL ADH..PATCH TP SCH (10:10)
[2017-05-17] MEDS: BACITRACIN ZINC OINTMENT 15 GM TP SCH ×2 (10:12→18:35)
[2017-05-17 12:31] LABS: HEMATOCRIT 24.5 % (36.0-47.0); HEMOGLOBIN 8.7 g/dL (12.0-15.5); HGB HCT DIFFERENCE 1.6; MEAN CORPUSCULAR HEMOGLOBIN 34.8 pg (27.0-33.4); MEAN CORPUSCULAR HGB CONC 35.5 g/dL (32.0-36.0); MEAN CORPUSCULAR VOLUME 98 fl (80-97); RED CELL DISTRIBUTION WIDTH 18.5 % (11.5-14.0); WHITE BLOOD COUNT 6.8 10^3/uL (4.0-10.5)
[2017-05-17 14:37] LABS: PATH REVIEW PATHOLOGIST REVIEWED
--- NOTE | 2017-05-17 17:20 | PDOC PROGRESS REPORT ---
Subjective Progress Note for:: 05/17/17 Subjective:: She was seen early this morning. Patient states that she was feeling much better. Patient reported that she was able to ambulate around room and hallway with little difficulty. Physical Exam Vital Signs: Temp Pulse Resp BP Pulse Ox 98.7 F 74 18 123/64 96 05/17/17 14:29 05/17/17 14:29 05/17/17 14:29 05/17/17 14:29 05/17/17 14:29 Intake & Output 05/16/17 05/17/17 05/18/17 06:59 06:59 06:59 Intake Total 438 390 518 Output Total 1100 1150 450 Balance -662 -760 68 Weight 53.7 kg 53.7 kg General appearance: PRESENT: no acute distress, thin Head exam: PRESENT: atraumatic, normocephalic Eye exam: PRESENT: conjunctiva pink, EOMI. ABSENT: scleral icterus Ear exam: PRESENT: normal external ear exam Mouth exam: PRESENT: moist, tongue midline Neck exam: ABSENT: carotid bruit, JVD, lymphadenopathy, thyromegaly Respiratory exam: PRESENT: clear to auscultation cricket. ABSENT: rales, rhonchi, wheezes Cardiovascular exam: PRESENT: RRR. ABSENT: diastolic murmur, rubs, systolic murmur Vascular exam: PRESENT: normal capillary refill GI/Abdominal exam: PRESENT: normal bowel sounds, soft. ABSENT: distended, guarding, mass, organolmegaly, rebound, tenderness Rectal exam: PRESENT: deferred Extremities exam: PRESENT: full ROM. ABSENT: calf tenderness, clubbing, pedal edema Neurological exam: PRESENT: alert, awake, oriented to person, oriented to place , oriented to time, oriented to situation, CN II-XII grossly intact. ABSENT: motor sensory deficit Psychiatric exam: PRESENT: appropriate affect, normal mood. ABSENT: homicidal ideation, suicidal ideation Skin exam: PRESENT: dry, intact, warm. ABSENT: cyanosis, rash Results Laboratory Results: 05/17/17 12:16 05/17/17 05:39 05/17/17 05/17/17 05/17/17 05:39 05:39 08:58 WBC 5.8 5.9 RBC 2.33 L 2.61 L Hgb 7.8 L 8.9 L Hct 23.0 L 26.0 L MCV 99 H 99 H MCH 33.4 33.9 H MCHC 33.9 34.1 RDW 18.5 H 18.8 H Plt Count 247 260 Seg Neutrophils % 60.8 60.4 Lymphocytes % 20.8 23.4 Monocytes % 13.5 H 12.2 Eosinophils % 3.7 3.2 Basophils % 1.2 0.8 Absolute Neutrophils 3.5 3.5 Absolute Lymphocytes 1.2 1.4 Absolute Monocytes 0.8 0.7 Absolute Eosinophils 0.2 0.2 Absolute Basophils 0.1 0.0 Sodium 137.9 Potassium 3.7 Chloride 107 Carbon Dioxide 26 Anion Gap 5 BUN 11 Creatinine 0.83 Est GFR ( Amer) > 60 Est GFR (Non-Af Amer) > 60 Glucose 88 Calcium 8.3 L Blood Type Antibody Screen 05/17/17 05/17/17 08:58 12:16 WBC 6.8 RBC 2.50 L Hgb 8.7 L Hct 24.5 L MCV 98 H MCH 34.8 H MCHC 35.5 RDW 18.5 H Plt Count 221 Seg Neutrophils % Lymphocytes % Monocytes % Eosinophils % Basophils % Absolute Neutrophils Absolute Lymphocytes Absolute Monocytes Absolute Eosinophils Absolute Basophils Sodium Potassium Chloride Carbon Dioxide Anion Gap BUN Creatinine Est GFR ( Amer) Est GFR (Non-Af Amer) Glucose Calcium Blood Type AB POSITIVE Antibody Screen NEGATIVE Impressions: Chest X-Ray 05/16/17 00:00 IMPRESSION: 1. Known pulmonary metastatic disease. No superimposed pneumonia or failure or pneumothorax appreciated. Assessment & Plan - Diagnosis (1) Sepsis Qualifiers: Sepsis type: sepsis due to unspecified organism Qualified Code(s): A41.9 - Sepsis, unspecified organism Is this a current diagnosis for this admission?: Yes Plan: Secondary to Pasteurella Multocida: Will place on Augmentin for 7 days to complete total of 14 days for treatment. (2) UTI (urinary tract infection) Qualifiers: Urinary tract infection type: acute cystitis Hematuria presence: with hematuria Qualified Code(s): N30.01 - Acute cystitis with hematuria Is this a current diagnosis for this admission?: Yes Plan: Secondary to E. Coli: Completed treatment with Ertapenem. (3) Fever Qualifiers: Fever type: drug-induced Qualified Code(s): R50.2 - Drug induced fever Is this a current diagnosis for this admission?: Yes Plan: Could be Drug Fever. Pt with multiple drug allergies. Will monitor. Doxycycline discontinued. (4) Anemia Qualifiers: Anemia type: other cause Other causes of anemia: antineoplastic chemotherapy Qualified Code(s): D64.81 - Anemia due to antineoplastic chemotherapy; T45.1X5A - Adverse effect of antineoplastic and immunosuppressive drugs, initial encounter Is this a current diagnosis for this admission?: Yes Plan: Pt was transfused by Oncology today. (5) Metabolic acidosis Is this a current diagnosis for this admission?: Yes Plan: Resolved. (6) Multiple myeloma in relapse Is this a current diagnosis for this admission?: Yes Plan: Oncology planning to transfuse pt. (7) Nausea and vomiting Qualifiers: Vomiting Intractability: non-intractable Is this a current diagnosis for this admission?: Yes Plan: alice (8) Low back pain Qualifiers: Chronicity: unspecified Back pain laterality: unspecified Sciatica presence: without sciatica Qualified Code(s): M54.5 - Low back pain Is this a current diagnosis for this admission?: Yes Plan: Continue current treatment pt. - Time Time Spent with patient: 15-24 minutes - Plan for discharge home tomorrow if remains afebrile.
[2017-05-17] MEDS: AMOXICILLIN TR/POT CLAVULANATE 500-125 MG TAB PO SCH (21:33)
[2017-05-17] MEDS: PHARMACY COMMUNICATION ORDER MC SCH (21:36)
[2017-05-18] MEDS: AMOXICILLIN TR/POT CLAVULANATE 500-125 MG TAB PO SCH ×2 (05:14→13:36)
[2017-05-18] MEDS: HEPARIN SOD (PORCINE) 5,000 UNIT/ML 1 ML SYRINGE SUBCUT SCH ×3 (05:15→13:41)
[2017-05-18 08:37] LABS: ABSOLUTE BASOPHILS # (AUTO) 0.1 10^3/uL (0.0-0.2); ABSOLUTE EOSINOPHILS # (AUTO) 0.2 10^3/uL (0.0-0.6); ABSOLUTE LYMPHOCYTES (AUTO) 1.6 10^3/uL (0.5-4.7); ABSOLUTE MONOCYTES (AUTO) 0.8 10^3/uL (0.1-1.4); ABSOLUTE NEUT (AUTO) 3.3 10^3/uL (1.7-8.2); BASOPHILS % (AUTO) 0.9 % (0-2); EOSINOPHILS % (AUTO) 3.4 % (0-6); HEMATOCRIT 28.2 % (36.0-47.0); HEMOGLOBIN 9.7 g/dL (12.0-15.5); HGB HCT DIFFERENCE 0.9; LYMPHOCYTES % (AUTO) 26.5 % (13-45); MEAN CORPUSCULAR HEMOGLOBIN 32.7 pg (27.0-33.4); MEAN CORPUSCULAR HGB CONC 34.4 g/dL (32.0-36.0); MEAN CORPUSCULAR VOLUME 95 fl (80-97); MONOCYTES % (AUTO) 13.4 % (3-13); RED BLOOD COUNT 2.97 10^6/uL (3.72-5.28); RED CELL DISTRIBUTION WIDTH 21.4 % (11.5-14.0); SEGMENTED NEUTROPHILS % (AUTO) 55.8 % (42-78)
[2017-05-18] MEDS: ONDANSETRON 4 MG TAB.RAPDIS PO SCH ×3 (09:11→13:34)
[2017-05-18] MEDS: ACYCLOVIR 200 MG CAPSULE PO SCH (09:11)
[2017-05-18] MEDS: LANSOPRAZOLE 30 MG TAB.RAP.DR PO SCH (09:12)
[2017-05-18] MEDS: LIDOCAINE 5% (700 MG) TRANSDERMAL ADH..PATCH TP SCH (09:12)
[2017-05-18] MEDS: DOCUSATE SODIUM 100 MG CAPSULE PO SCH (09:12)
[2017-05-18] MEDS: ASPIRIN 81 MG TABLET, CHEWABLE PO SCH (09:13)
[2017-05-18] MEDS: ATENOLOL 50 MG TABLET PO SCH (09:13)
[2017-05-18] MEDS: BACITRACIN ZINC OINTMENT 15 GM TP SCH (09:21)
--- NOTE | 2017-05-18 09:23 | PDOC PROGRESS REPORT ---
Subjective Progress Note for:: 05/18/17 Subjective:: No fevers overnight Physical Exam Vital Signs: Temp Pulse Resp BP Pulse Ox 98.3 F 79 18 128/71 H 94 05/18/17 07:21 05/18/17 07:21 05/18/17 07:21 05/18/17 07:21 05/18/17 07:21 Intake & Output 05/17/17 05/18/17 05/19/17 06:59 06:59 06:59 Intake Total 390 2062 Output Total 1150 1900 Balance -760 162 Weight 53.7 kg 53 kg General appearance: PRESENT: no acute distress, well-developed, well-nourished Head exam: PRESENT: atraumatic, normocephalic Eye exam: PRESENT: conjunctiva pink, EOMI, PERRLA. ABSENT: scleral icterus Ear exam: PRESENT: normal external ear exam Mouth exam: PRESENT: moist, tongue midline Neck exam: ABSENT: carotid bruit, JVD, lymphadenopathy, thyromegaly Respiratory exam: PRESENT: clear to auscultation cricket. ABSENT: rales, rhonchi, wheezes Cardiovascular exam: PRESENT: RRR. ABSENT: diastolic murmur, rubs, systolic murmur Pulses: PRESENT: normal dorsalis pedis pul Vascular exam: PRESENT: normal capillary refill GI/Abdominal exam: PRESENT: normal bowel sounds, soft. ABSENT: distended, guarding, mass, organolmegaly, rebound, tenderness Rectal exam: PRESENT: deferred Extremities exam: PRESENT: full ROM. ABSENT: calf tenderness, clubbing, pedal edema Neurological exam: PRESENT: alert, awake, oriented to person, oriented to place , oriented to time, oriented to situation, CN II-XII grossly intact. ABSENT: motor sensory deficit Psychiatric exam: PRESENT: appropriate affect, normal mood. ABSENT: homicidal ideation, suicidal ideation Skin exam: PRESENT: dry, intact, warm. ABSENT: cyanosis, rash Results Laboratory Results: 05/18/17 08:06 05/17/17 05:39 05/17/17 05/17/17 05/17/17 08:58 08:58 12:16 WBC 5.9 6.8 RBC 2.61 L 2.50 L Hgb 8.9 L 8.7 L Hct 26.0 L 24.5 L MCV 99 H 98 H MCH 33.9 H 34.8 H MCHC 34.1 35.5 RDW 18.8 H 18.5 H Plt Count 260 221 Seg Neutrophils % 60.4 Lymphocytes % 23.4 Monocytes % 12.2 Eosinophils % 3.2 Basophils % 0.8 Absolute Neutrophils 3.5 Absolute Lymphocytes 1.4 Absolute Monocytes 0.7 Absolute Eosinophils 0.2 Absolute Basophils 0.0 Blood Type AB POSITIVE Antibody Screen NEGATIVE 05/18/17 08:06 WBC 6.0 RBC 2.97 L Hgb 9.7 L Hct 28.2 L MCV 95 MCH 32.7 MCHC 34.4 RDW 21.4 H Plt Count 241 Seg Neutrophils % 55.8 Lymphocytes % 26.5 Monocytes % 13.4 H Eosinophils % 3.4 Basophils % 0.9 Absolute Neutrophils 3.3 Absolute Lymphocytes 1.6 Absolute Monocytes 0.8 Absolute Eosinophils 0.2 Absolute Basophils 0.1 Blood Type Antibody Screen Impressions: Chest X-Ray 05/16/17 00:00 IMPRESSION: 1. Known pulmonary metastatic disease. No superimposed pneumonia or failure or pneumothorax appreciated. Assessment & Plan - Diagnosis (1) Sepsis Qualifiers: Sepsis type: sepsis due to unspecified organism Qualified Code(s): A41.9 - Sepsis, unspecified organism Is this a current diagnosis for this admission?: Yes Plan: Sepsis now resolved, Pasteurella, currently patient is on appropriate antibiotic coverage, probable discharge home today on Augmentin. (2) UTI (urinary tract infection) Qualifiers: Urinary tract infection type: acute cystitis Hematuria presence: with hematuria Qualified Code(s): N30.01 - Acute cystitis with hematuria Is this a current diagnosis for this admission?: Yes Plan: Improved, treatment completed (3) Multiple myeloma in relapse Is this a current diagnosis for this admission?: Yes Plan: Today had a long discussion about next steps of care with patient and family at bedside, spent greater than 45 minutes in discussion today (4) Anemia Qualifiers: Anemia type: other cause Other causes of anemia: antineoplastic chemotherapy Qualified Code(s): D64.81 - Anemia due to antineoplastic chemotherapy; T45.1X5A - Adverse effect of antineoplastic and immunosuppressive drugs, initial encounter Is this a current diagnosis for this admission?: Yes Plan: Patient transfused, we will do further CBCs in office to assess further needs - Time Time Spent with patient: 35 or more minutes Critical Time spent with patient: 35 or more minutes
[2017-05-18 15:02] VITALS: BP 123/64
--- NOTE | 2017-05-19 07:40 | PDOC DISCHARGE SUMMARY ---
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 Is this a current diagnosis for this admission?: Yes (2) Anemia Is this a current diagnosis for this admission?: Yes (3) Gram-negative bacteremia Is this a current diagnosis for this admission?: Yes (4) Hyponatremia Is this a current diagnosis for this admission?: Yes (5) Metabolic acidosis Is this a current diagnosis for this admission?: Yes (6) Multiple myeloma in relapse Is this a current diagnosis for this admission?: Yes (7) Sepsis Is this a current diagnosis for this admission?: Yes - Additional Information Resuscitation Status: Do Not Resuscitate Discharge Diet: Regular Discharge Activity: Activity As Tolerated Home Medications: Acyclovir [Zovirax 200 mg Capsule] 200 mg PO DAILY 05/11/17 Amlodipine Besylate [Norvasc 10 mg Tablet] 10 mg PO DAILY 05/11/17 Aspirin [Aspirin 81 mg Chewable Tablet] 81 mg PO DAILY 05/11/17 Atenolol [Tenormin 50 mg Tablet] 50 mg PO DAILY 05/11/17 Esomeprazole Magnesium [Nexium] 40 mg PO Q12 05/11/17 Hydrocodone/Acetaminophen [[place] 5-325 mg Tablet] 1 tab PO Q6HP PRN 05/11/17 Potassium Chloride [Klor-Con 10 Meq Tablet.sa] 20 meq PO DAILYP PRN 05/11/17 Amox Tr/Potassium Clavulanate [Augmentin 875-125 mg Tablet] 1 tab PO BID #14 tablet 05/18/17 Bacitracin Zinc [Bacitracin Oint 15 gm] 1 applic TP BID tube 05/18/17 Hydrocodone/Acetaminophen [[place] 5-325 mg Tablet] 1 tab PO Q6HP PRN tablet 08/22 Lidocaine [Lidoderm 5% (700 mg) Transdermal Patch] 1 patch TP DAILY #30 adh..patch 05/18/17 Ondansetron [Zofran Odt 4 mg Tablet] 1 - 2 tab PO Q4HP PRN #10 tab.rapdis History of Present Illness History of Present Illness: ÁNGELA ALBRIGHT is a 71 year old female 71 year old female with history of progressive multiple myeloma presently on chemotherapy. She presents from her oncologist office. She presented to the emergency room 2 days ago with complaints of weakness, fatigue and multiple falls. She underwent CT of her back and pelvis which was unremarkable any for any fractures. She was noted to have a urinary tract infection and was started on Macrobid. She has had worsening back pain was started on oral hydrocodone 2 days ago as well. She states since that time she has had progressive fevers with temperatures up to 103 orally. She has had night sweats. Urine culture was positive for Escherichia coli with multiple drug resistance. She has also had nausea and vomiting and unable to keep anything down since starting the macrobid. She has multiple intolerances to narcotic analgesics in the past. Has a history of anemia and was given blood transfusion approximately 5 days ago. Hospital Course Hospital Course: Patient was admitted and initially started on invanz as her urine culture previously had grown a multidrug resistant E. coli. However as patient's blood cultures developed it was discovered that she grew out Pasteurella. Patient was treated for a total of 5 days with Invanz for her multidrug resistant E. coli. Patient's fever curve improved. Patient's back pain was treated with Lidoderm patches and her nausea and vomiting with Zofran. Patient continued to improve. Her oncologist, Dr. Bedolla, consulted on this visit. Patient was transitioned to Augmentin for her Pasteurella and had no recurrence of her fever. She was discharged in stable condition. Physical Exam Vital Signs: Temp Pulse Resp BP Pulse Ox 98.3 F 78 18 123/64 94 05/18/17 15:00 05/18/17 15:00 05/18/17 15:00 05/18/17 15:00 05/18/17 15:00 Intake & Output 05/18/17 05/19/17 05/20/17 06:59 06:59 06:59 Intake Total 2062 50 Output Total 1900 100 Balance 162 -50 Weight 53 kg Exam: General: Awake alert and oriented x3, no acute respiratory distress HEENT: AT/NC, PERRL, EOMI, oropharynx is moist, pink, no scleral icterus, no conjunctival injection Neck: No JVD, trachea midline Chest: Clear to auscultation bilaterally, no wheezes rhonchi or rales CV: Regular rate and rhythm, normal S1 and S2, no murmur, rub, or gallop Abdomen: Soft, nontender to palpation, nondistended, active bowel sounds; no rebound, rigidity, or guarding Extremities: No cyanosis, clubbing or edema Neuro: Cranial nerves II through XII are grossly intact without focal deficits; awake alert and oriented x3 Psych: Normal mood and affect Results Laboratory Results: 05/18/17 08:06 05/17/17 05:39 05/18/17 08:06 WBC 6.0 RBC 2.97 L Hgb 9.7 L Hct 28.2 L MCV 95 MCH 32.7 MCHC 34.4 RDW 21.4 H Plt Count 241 Seg Neutrophils % 55.8 Lymphocytes % 26.5 Monocytes % 13.4 H Eosinophils % 3.4 Basophils % 0.9 Absolute Neutrophils 3.3 Absolute Lymphocytes 1.6 Absolute Monocytes 0.8 Absolute Eosinophils 0.2 Absolute Basophils 0.1 05/13/17 15:58 Blood Blood Culture - Final NO GROWTH IN 5 DAYS 05/13/17 15:58 Blood Blood Culture - Final NO GROWTH IN 5 DAYS 05/16/17 14:46 Clean Catch Midstream Urine Culture - Final Enterococcus Faecalis(Group D) Impressions: Chest X-Ray 05/16/17 00:00 IMPRESSION: 1. Known pulmonary metastatic disease. No superimposed pneumonia or failure or pneumothorax appreciated. Qualifiers PATEINT BEING DISCHARGED WITH ANY OF THE FOLLOWING DIAGNOSIS?: No Plan Time Spent: Less than 30 Minutes
== END 2017-05-18 15:50 | disposition home or self-care (01) | DRG 868 ==
LOC: 3S 14:27 → UNDOADMIN 14:27 → 3S 15:29
PROC: 30233N1 Transfusion of Nonautologous Red Blood Cells into Peripheral Vein, Percutaneous Approach (ICD-10-PCS; principal; 2017-05-17)
DX: A28.0 Pasteurellosis (principal); N30.01 Acute cystitis with hematuria; E87.1 Hypo-osmolality and hyponatremia; E87.2 Acidosis; C90.02 Multiple myeloma in relapse; Z66 Do not resuscitate; B96.20 Unspecified Escherichia coli [E. coli] as the cause of diseases classified elsewhere; I10 Essential (primary) hypertension; E87.6 Hypokalemia; E86.0 Dehydration; D64.81 Anemia due to antineoplastic chemotherapy; M54.5 Low back pain
CPT/HCPCS: 36415; 36430; 71010; 80048; 80053; 81001; 83735; 85025; 85027; 86850; 86900; 86901; 86920; 87040; 87077; 87086; 87088; 87186; G8978-GP; G8979-GP; J1335; J1644; J3490; J7030; P9016; S0119

== ENCOUNTER 2017-06-08 07:26 | Outpatient (CLI) | payer MEDICARE, OTHER ==
[~2017-06-08 07:26] MED LIST changes: +DARATUMUMAB IV PRN; +DEXAMETHASONE SOD PHOS INJ 10 MG/1 ML VIAL IV PRN; -DIPHENHYDRAMINE HCL 25 MG CAPSULE PO PRN; +DIPHENHYDRAMINE HCL 50 MG in NORMAL SALINE 50 ML INJ PRN; +DIPHENHYDRAMINE HCL 50 MG in NORMAL SALINE 50 ML IV PRN; +DIPHENHYDRAMINE HCL 50 MG/ML VIAL IV PRN; -FUROSEMIDE INJ/PF 20 MG/2 ML SDV IV PRN; +METHYLPREDNISOLONE SOD SUCC/PF 100 MG in NORMAL SALINE 50 ML IV PRN; +NORMAL SALINE 250 ML IV PRN; +NORMAL SALINE IV PRN
[2017-06-08 08:20] LABS: HEMATOCRIT 24.1 % (36.0-47.0); HEMOGLOBIN 8.3 g/dL (12.0-15.5); HGB HCT DIFFERENCE 0.8; MEAN CORPUSCULAR HEMOGLOBIN 32.1 pg (27.0-33.4); MEAN CORPUSCULAR HGB CONC 34.4 g/dL (32.0-36.0); MEAN CORPUSCULAR VOLUME 93 fl (80-97); RED BLOOD COUNT 2.58 10^6/uL (3.72-5.28); RED CELL DISTRIBUTION WIDTH 19.1 % (11.5-14.0); WHITE BLOOD COUNT 5.8 10^3/uL (4.0-10.5)
[2017-06-08 08:29] VITALS: BP 135/69
[2017-06-08 08:42] LABS: BAND NEUTROPHILS % (MANUAL) 2 % (3-5); BASOPHILS % (MANUAL) 0 % (0-2); EOSINOPHILS % (MANUAL) 2 % (0-6); LYMPHOCYTES % (MANUAL) 34 % (13-45); TOTAL CELLS COUNTED 100
[2017-06-08 08:45] LABS: ANISOCYTOSIS 2+; POIKILOCYTOSIS SLIGHT; ROULEAUX SLIGHT; TOXIC GRANULATION SLIGHT
[2017-06-08 08:46] LABS: POLYCHROMASIA SLIGHT
== END 2017-06-08 16:42 | disposition home or self-care (01) ==
LOC: II 07:26 → EDBD 08:00 → 5TH 08:33 → II 16:42
PROVIDERS: ATTEND Internal Medicine
PROC: 3E0330M Introduction of Antineoplastic, Monoclonal Antibody, into Peripheral Vein, Percutaneous Approach (ICD-10-PCS; principal; 2017-06-08)
PROC: 3E0333Z Introduction of Anti-inflammatory into Peripheral Vein, Percutaneous Approach (ICD-10-PCS; 2017-06-08)
PROC: 3E033GC Introduction of Other Therapeutic Substance into Peripheral Vein, Percutaneous Approach (ICD-10-PCS; 2017-06-08)
DX: Z51.11 Encounter for antineoplastic chemotherapy (principal); C90.20 Extramedullary plasmacytoma not having achieved remission
CPT/HCPCS: 86900; 86901; 36415; 86850; 85025; 96413; 96415; 96367; 96375; A9270; J1200; J2930; J7030; J1100; J9145; 96360; 96374; 96417

== ENCOUNTER 2017-07-01 10:13 | Observation (INO) | payer MEDICARE, OTHER ==
--- NOTE | 2017-07-01 10:42 | ER Document Report ---
ED General - General Chief Complaint: Breathing Difficulty Stated Complaint: DIFFICULTY BREATHING Time Seen by Provider: 07/01/17 10:31 Mode of Arrival: Ambulatory Information source: Patient, [facility] Records TRAVEL OUTSIDE OF THE [place] IN LAST 30 DAYS: No - HPI Patient complains to provider of: SOB Onset: Yesterday Onset/Duration: Gradual Quality of pain: No pain Associated symptoms: None. denies: Chills, Fever Exacerbated by: Deep breathing Relieved by: Denies Notes: Patient is a 72-year-old female with history of multiple myeloma. Patient is currently under treatment with immunosuppressive medication. Patient reports a recent history of bronchitis. Patient presents today feeling short of breath. Patient states it feels like she cannot get a deep breath in. Denies fevers, chills, sweats. No prior pulmonary history. She does not use nebulizers or home oxygen. Denies prior history of pulmonary embolus. - Related Data Allergies/Adverse Reactions: povidone-iodine [From Betadine] Allergy (Severe, Verified 07/01/17 10:20) Cellulitis soap [From Betadine] Allergy (Severe, Verified 07/01/17 10:20) Cellulitis cefaclor [From Ceclor] Allergy (Verified 07/01/17 10:20) hydrogen peroxide [Hydrogen Peroxide] Allergy (Verified 07/01/17 10:20) lanolin [Lanolin] Allergy (Verified 07/01/17 10:20) shellfish derived Allergy (Verified 07/01/17 10:20) Sulfa (Sulfonamide Antibiotics) Allergy (Verified 07/01/17 10:20) lanolin alcohols [Wool Alcohols] Adverse Reaction (Verified 07/01/17 10:20) Past Medical History - General Information source: Patient, [facility] Records - Social History Smoking Status: Never Smoker Family History: Arthritis, CVA, Hyperlipidemia, Hypertension, Malignancy Patient has suicidal ideation: No Patient has homicidal ideation: No - Past Medical History Cardiac Medical History: Reports: Hx Hypertension Denies: Hx Congestive Heart Failure, Hx Heart Attack Pulmonary Medical History: Reports: Hx Pneumonia Denies: Hx Asthma, Hx Bronchitis, Hx COPD, Hx Tuberculosis Neurological Medical History: Reports: Hx Cerebrovascular Accident. Denies: Hx Seizures Renal/ Medical History: Denies: Hx End Stage Renal Disease, Hx Kidney Stones, Hx Peritoneal Dialysis Malignancy Medical History: Reports: Hx Bone Cancer, Hx Skin Cancer GI Medical History: Reports: Hx Hiatal Hernia. Denies: Hx Cirrhosis, Hx Gastroesophageal Reflux Disease, Hx Ulcer Musculoskeltal Medical History: Reports Hx Arthritis, Denies Hx Multiple Sclerosis, Reports Hx Musculoskeletal Trauma Psychiatric Medical History: Denies: Hx Bipolar Disorder, Hx Depression, Hx Schizophrenia Traumatic Medical History: Reports: Hx Fractures Past Surgical History: Reports: Hx Tonsillectomy - Immunizations Immunizations up to date: Yes Hx Diphtheria, Pertussis, Tetanus Vaccination: Yes - 10/12/14 Review of Systems - Review of Systems Constitutional: denies: Chills, Fever Respiratory: Cough, Short of breath -: Yes All other systems reviewed and negative Physical Exam - Vital signs Vitals: Temp Pulse Resp BP Pulse Ox 97.6 F 101 H 14 136/88 H 97 07/01/17 10:16 07/01/17 10:16 07/01/17 10:16 07/01/17 10:16 07/01/17 10:16 Interpretation: Normal - General General appearance: Appears well, Alert - HEENT Head: Normocephalic, Atraumatic Eyes: Normal Pupils: PERRL - Respiratory Respiratory status: No respiratory distress, Other - sats 100% on room air Chest status: Nontender Breath sounds: Normal. No: Rales, Rhonchi, Wheezing Chest palpation: Normal - Cardiovascular Rhythm: Regular Heart sounds: Normal auscultation Murmur: No - Abdominal Inspection: Normal Distension: No distension Bowel sounds: Normal Tenderness: Nontender Organomegaly: No organomegaly - Back Back: Normal, Nontender - Extremities General upper extremity: Normal inspection, Nontender, Normal color, Normal ROM , Normal temperature General lower extremity: Normal inspection, Nontender, Normal color, Normal ROM , Normal temperature, Normal weight bearing. No: Benny's sign - Neurological Neuro grossly intact: Yes Cognition: Normal Orientation: AAOx4 Nickie Coma Scale Eye Opening: Spontaneous [place] Coma Scale Verbal: Oriented Nickie Coma Scale Motor: Obeys Commands [place] Coma Scale Total: 15 Speech: Normal Motor strength normal: LUE, RUE, LLE, RLE Sensory: Normal - Psychological Associated symptoms: Normal affect, Normal mood - Skin Skin Temperature: Warm Skin Moisture: Dry Skin Color: Normal Course - Re-evaluation Re-evalutation: 07/01/17 11:41 1141-labs now show cancelled 07/01/17 12:19 CXR shws large riught pleural effusion which is new. Once labs are returned, will contact hospitalist for admit 07/01/17 12:27 discussed with hospitalist for admission. pt is aware. She is breathing comfortablu. - Vital Signs Vital signs: Temp Pulse Resp BP Pulse Ox 97.6 F 101 H 24 H 137/77 H 97 07/01/17 10:16 07/01/17 10:16 07/01/17 11:01 07/01/17 11:01 07/01/17 11:01 - Laboratory Result Diagrams: 07/01/17 11:39 07/01/17 10:53 Laboratory results interpreted by me: 07/01/17 11:39 RBC 3.09 L Hgb 10.0 L Hct 28.0 L RDW 17.8 H Plt Count 114 L - Diagnostic Test Radiology reviewed: Reports reviewed Radiology results interpreted by me: 07/01/17 12:08 New interval development of right pleural effusion - EKG Interpretation by Fl EKG shows normal: Sinus rhythm Rate: Normal Rhythm: NSR Wayne/QRS: No: Right axis deviation, Left axis deviation Voltage: Consistant with LVH Additional EKG results interpreted by me: 07/01/17 11:[address] T changes. Discharge - Discharge Clinical Impression: Pleural effusion Condition: Fair Disposition: ADMITTED OBSERVATION Admitting Provider: Hospitalist Unit Admitted: Medical Floor
--- NOTE | 2017-07-01 12:04 | RADIOLOGY REPORT (SQ) ---
EXAM DESCRIPTION: CHEST SINGLE VIEW COMPLETED DATE/TIME: 07/01/2017 11:50 am REASON FOR STUDY: SOB COMPARISON: 05/16/2017 EXAM PARAMETERS: NUMBER OF VIEWS: One view. TECHNIQUE: Single frontal radiographic view of the chest acquired. RADIATION DOSE: NA LIMITATIONS: None. FINDINGS: LUNGS AND PLEURA: There has been interval development of a large right pleural effusion. I cannot exclude some underlying atelectasis or infiltrate in the right mid and lower lung field. Th e previously described pulmonary masses in the left lung are again identified. The previously descri bed pulmonary masses in the right lung are obscured due to the large pleural effusion. MEDIASTINUM AND HILAR STRUCTURES: No masses. Contour normal. HEART AND VASCULAR STRUCTURES: Cardiac silhouette is partially obscured by adjacent densities but julieta ears unchanged BONES: No acute findings. HARDWARE: None in the chest. OTHER: No other significant finding. IMPRESSION: Interval development of a large right pleural effusion. Other findings as noted above TECHNICAL DOCUMENTATION: JOB ID: [id number]
[2017-07-01 12:14] LABS: ABSOLUTE EOSINOPHILS # (AUTO) 0.1 10^3/uL (0.0-0.6); ABSOLUTE LYMPHOCYTES (AUTO) 1.5 10^3/uL (0.5-4.7); ABSOLUTE MONOCYTES (AUTO) 0.6 10^3/uL (0.1-1.4); ABSOLUTE NEUT (AUTO) 2.7 10^3/uL (1.7-8.2); BASOPHILS % (AUTO) 0.3 % (0-2); EOSINOPHILS % (AUTO) 1.9 % (0-6); LYMPHOCYTES % (AUTO) 29.9 % (13-45); MEAN CORPUSCULAR HEMOGLOBIN 32.3 pg (27.0-33.4); MEAN CORPUSCULAR HGB CONC 35.6 g/dL (32.0-36.0); MEAN CORPUSCULAR VOLUME 91 fl (80-97); MONOCYTES % (AUTO) 12.5 % (3-13); RED BLOOD COUNT 3.09 10^6/uL (3.72-5.28); RED CELL DISTRIBUTION WIDTH 17.8 % (11.5-14.0); SEGMENTED NEUTROPHILS % (AUTO) 55.4 % (42-78); WHITE BLOOD COUNT 4.9 10^3/uL (4.0-10.5)
[2017-07-01 12:31] LABS: ALANINE AMINOTRANSFERASE 24 U/L (9-52); ALBUMIN 3.1 g/dL (3.5-5.0); ALKALINE PHOSPHATASE 121 U/L (38-126); ANION GAP 9 (5-19); ASPARTATE AMINO TRANSFERASE 27 U/L (14-36); BILIRUBIN,DIRECT 0.5 mg/dL (0.0-0.4); BILIRUBIN,TOTAL 0.6 mg/dL (0.2-1.3); BLOOD UREA NITROGEN 16 mg/dL (7-20); CARBON DIOXIDE 19 mmol/L (22-30); CHLORIDE 110 mmol/L (98-107); CREATININE RESULT 1.02 mg/dL (0.52-1.25); GLUCOSE 107 mg/dL (75-110); POTASSIUM 4.3 mmol/L (3.6-5.0); SODIUM 137.8 mmol/L (137-145)
[2017-07-01] MEDS ORDERED: IPRATROPIUM/ALBUTEROL 0.5-2.5 MG/3 ML AMPUL NEB PRN (13:35)
[2017-07-01] MEDS ORDERED: ONDANSETRON HCL INJ/PF 4 MG/2 ML SDV IV PRN (13:35)
[2017-07-01] MEDS ORDERED: NORMAL SALINE 1000 ML 1,000 ML IV PRN (13:35)
[2017-07-01] MEDS ORDERED: ACETAMINOPHEN 325 MG TABLET PO PRN (13:35)
--- NOTE | 2017-07-01 15:41 | PDOC H&P ---
History of Present Illness Admission Date/PCP: 07/01/17 13:05 BRODERICK HAM MD Patient complains of: Dyspnea at rest, orthopnea, non-productive cough History of Present Illness: ÁNGELA ALBRIGHT is a 72 year old female with history of hypertension and progressive multiple myeloma with known pulmonary and bone metastisis presently on chemotherapy. She presents to the emergency department with complaint of dyspnea x 4 days that has worsened to the extent that she is unable to walk more than 10-12 steps without difficulty and requires 20 minutes to recover. She reports orthopnea, stating that she has had to sleep in a straight back chair the last two nights. She reports having had some gradually worsening dyspnea over the last 4-6 weeks. She was seen by her oncologist 2 weeks ago and provided azithromycin for bronchitis. She states that at that time she was feverish and had a productive cough with copious amounts of thick sputum. The fever resolved with antibiotic therapy and her sputum production decreased significantly, however she never recovered to her baseline ease of breathing. Her symptoms have gradually worsened since completing the z-coleen until she determined it was necessary to be evaluated in the emergency department today. Workup in the emergency department revealed a large right pleural effusion. She is referred to the hospitalist service for admission. Pt is seen sitting upright in bed. She is slightly tachypneic, but conversational on room air and maintaining oxygen saturations. She reports continued non-productive cough with nausea this morning and post-tussive emesis. She also reports waking with night sweats this week, though has not been able to document a fever. Otherwise, she denies chest pain, palpitations, abdominal pain, diarrhea. Past Medical History Cardiac Medical History: Reports: DVT, Hypertension, Other - MVP, palpitations Denies: Congestive Heart Failure, Myocardial Infarction Pulmonary Medical History: Reports: Bronchitis, Pneumonia Denies: Asthma, Chronic Obstructive Pulmonary Disease (COPD), Tuberculosis EENT Medical History: Reports: None Neurological Medical History: Reports: None Endocrine Medical History: Reports: None Renal/ Medical History: Denies: End Stage Renal Disease Malignancy Medical History: Reports: Bone Cancer, Skin Cancer GI Medical History: Reports: Hiatal Hernia Denies: Cirrhosis, Gastroesophageal Reflux Disease Musculoskeltal Medical History: Reports: Arthritis Skin Medical History: Reports: None Psychiatric Medical History: Denies: Bipolar Disorder, Depression Hematology: Reports: Anemia - hemorrhage Denies: Bleeding Tendencies Past Surgical History Past Surgical History: Reports: Tonsillectomy Social History Information Source: Patient Lives with: Spouse/Significant other Smoking Status: Never Smoker Frequency of Alcohol Use: None Hx Recreational Drug Use: No Drugs: None Hx Prescription Drug Abuse: No - Advance Directive Resuscitation Status: Do Not Resuscitate Surrogate healthcare decision maker:: ; Emerson Villalobos Family History Family History: Arthritis, CVA, Hyperlipidemia, Hypertension, Malignancy Parental Family History Reviewed: Yes Children Family History Reviewed: Yes Sibling(s) Family History Reviewed.: Yes Medication/Allergy Home Medications: Amlodipine Besylate [Norvasc 10 mg Tablet] 10 mg PO DAILY 07/01/17 Aspirin [Aspirin EC] 81 mg PO DAILY 07/01/17 Atenolol [Tenormin 50 mg Tablet] 50 mg PO DAILY 07/01/17 Esomeprazole Magnesium [Nexium] 20 mg PO DAILY 07/01/17 Multivitamin [Daily Multiple Vitamin] 1 each PO DAILY 07/01/17 Allergies/Adverse Reactions: povidone-iodine [From Betadine] Allergy (Severe, Verified 07/01/17 10:20) Cellulitis soap [From Betadine] Allergy (Severe, Verified 07/01/17 10:20) Cellulitis cefaclor [From Ceclor] Allergy (Verified 07/01/17 10:20) hydrogen peroxide [Hydrogen Peroxide] Allergy (Verified 07/01/17 10:20) lanolin [Lanolin] Allergy (Verified 07/01/17 10:20) shellfish derived Allergy (Verified 07/01/17 10:20) Sulfa (Sulfonamide Antibiotics) Allergy (Verified 07/01/17 10:20) lanolin alcohols [Wool Alcohols] Adverse Reaction (Verified 07/01/17 10:20) Review of Systems Constitutional: PRESENT: as per HPI, fatigue, fever(s), night sweats Eyes: ABSENT: visual disturbances Ears: ABSENT: hearing changes Nose, Mouth, and Throat: ABSENT: headache(s), mouth pain, sore throat, vertigo Cardiovascular: PRESENT: dyspnea on exertion, orthropnea. ABSENT: chest pain, edema Respiratory: PRESENT: as per HPI, cough, dyspnea. ABSENT: hemoptysis, sputum Gastrointestinal: PRESENT: nausea, vomiting. ABSENT: abdominal pain, constipation, diarrhea, hematemesis, hematochezia Genitourinary: ABSENT: dysuria, hematuria Musculoskeletal: ABSENT: joint swelling Integumentary: ABSENT: rash, wounds Neurological: ABSENT: abnormal gait, abnormal speech, confusion, dizziness, focal weakness, syncope Psychiatric: ABSENT: anxiety, depression, homidical ideation, suicidal ideation Endocrine: ABSENT: cold intolerance, heat intolerance, polydipsia, polyuria Hematologic/Lymphatic: ABSENT: easy bleeding, easy bruising Physical Exam Vital Signs: Temp Pulse Resp BP Pulse Ox 97.6 F 101 H 22 H 139/74 H 95 07/01/17 10:16 07/01/17 10:16 07/01/17 13:01 07/01/17 13:01 07/01/17 13:01 General appearance: PRESENT: cooperative, mild distress, thin, well-developed, well-nourished Head exam: PRESENT: atraumatic, normocephalic Eye exam: PRESENT: conjunctiva pink, EOMI, PERRLA. ABSENT: scleral icterus Ear exam: PRESENT: normal external ear exam Mouth exam: PRESENT: moist, tongue midline Neck exam: ABSENT: carotid bruit, JVD, lymphadenopathy, thyromegaly Respiratory exam: PRESENT: decreased breath sounds - Absent RLL, diminshed RML. Otherwise CTA., tachypnea. ABSENT: crackles, rhonchi, stridor, unlabored, wheezes Cardiovascular exam: PRESENT: RRR, +S1, +S2, tachycardia. ABSENT: gallop, rubs , systolic murmur Pulses: PRESENT: normal dorsalis pedis pul Vascular exam: PRESENT: normal capillary refill GI/Abdominal exam: PRESENT: normal bowel sounds, soft. ABSENT: distended, guarding, mass, organolmegaly, rebound, tenderness Rectal exam: PRESENT: deferred Extremities exam: PRESENT: full ROM. ABSENT: calf tenderness, clubbing, pedal edema Musculoskeletal exam: PRESENT: ambulatory, normal inspection Neurological exam: PRESENT: alert, awake, oriented to person, oriented to place , oriented to time, oriented to situation, CN II-XII grossly intact. ABSENT: motor sensory deficit Psychiatric exam: PRESENT: appropriate affect, normal mood. ABSENT: homicidal ideation, suicidal ideation Skin exam: PRESENT: dry, intact, warm. ABSENT: cyanosis, rash Results Impressions: Chest X-Ray 07/01/17 10:37 IMPRESSION: Interval development of a large right pleural effusion. Other findings as noted above Assessment & Plan - Diagnosis (1) Acute dyspnea Is this a current diagnosis for this admission?: Yes Plan: Pt with gradually worsening dyspnea x 4-6 weeks with acute worsening 4 days ago. She was treated with azithromycin for bronchitis approximately 2 weeks ago with slight improvement in symptoms that have now worsened. Pt additionally w/ progressive multiple myeloma and pulmonary nodules. Work up in the ED reveals a large right pleural effusion. Differentials include infection (bronchitis/CAP) and so will cover with antibiotics empirically, malignancy, and PE. D-dimer not likely to be beneficial in evaluating for PE and V/Q scan not an option until effusion has been addressed; will hold off on this work up until stat thorecentesis is completed. 1- Admit to floor bed on tele-monitor 2- Supplemental oxygen as needed to keep O2 sats >90% 3- IV Levaquin for empiric therapy; blood cultures pending 4- State thoracentesis; pharmacological DVT prophylaxis held pending procedure (2) Pleural effusion Is this a current diagnosis for this admission?: Yes Plan: Plan as above. (3) Nausea and vomiting Qualifiers: Vomiting Intractability: non-intractable Is this a current diagnosis for this admission?: Yes Plan: 1- prn Zofran 2- Will provide gentle IVF hydration (4) Anemia Qualifiers: Anemia type: other cause Other causes of anemia: antineoplastic chemotherapy Qualified Code(s): D64.81 - Anemia due to antineoplastic chemotherapy; T45.1X5A - Adverse effect of antineoplastic and immunosuppressive drugs, initial encounter Is this a current diagnosis for this admission?: Yes Plan: Hgb 10; at pt's baseline. Did receive PRBC during last admission. Will monitor and transfuse for <8. - Time Time Spent: 50 to 70 Minutes Medications reviewed and adjusted accordingly: Yes
[2017-07-01 16:26] LABS: PROTHROMBIN TIME 14.7 SEC (11.4-15.4)
[2017-07-01 16:27] LABS: PARTIAL THROMBOPLASTIN TIME 25.6 SEC (23.5-35.8)
[2017-07-01] MEDS ORDERED: LEVOFLOXACIN 750 MG/D5W RTU 750 MG/150 ML RTUPB IV SCH (18:00)
[2017-07-01] MEDS: FAMOTIDINE 20 MG TABLET PO SCH (21:54)
[2017-07-02 06:22] LABS: ABSOLUTE EOSINOPHILS # (AUTO) 0.1 10^3/uL (0.0-0.6); ABSOLUTE LYMPHOCYTES (AUTO) 1.5 10^3/uL (0.5-4.7); ABSOLUTE MONOCYTES (AUTO) 0.8 10^3/uL (0.1-1.4); ABSOLUTE NEUT (AUTO) 2.7 10^3/uL (1.7-8.2); BASOPHILS % (AUTO) 0.2 % (0-2); EOSINOPHILS % (AUTO) 1.8 % (0-6); HEMATOCRIT 27.7 % (36.0-47.0); HEMOGLOBIN 9.6 g/dL (12.0-15.5); HGB HCT DIFFERENCE 1.1; LYMPHOCYTES % (AUTO) 29.7 % (13-45); MEAN CORPUSCULAR HEMOGLOBIN 31.7 pg (27.0-33.4); MEAN CORPUSCULAR HGB CONC 34.8 g/dL (32.0-36.0); MEAN CORPUSCULAR VOLUME 91 fl (80-97); MONOCYTES % (AUTO) 15.4 % (3-13); RED BLOOD COUNT 3.03 10^6/uL (3.72-5.28); RED CELL DISTRIBUTION WIDTH 18.1 % (11.5-14.0); SEGMENTED NEUTROPHILS % (AUTO) 52.9 % (42-78)
[2017-07-02 06:43] LABS: ANION GAP 10 (5-19); BLOOD UREA NITROGEN 11 mg/dL (7-20); CALCIUM 7.7 mg/dL (8.4-10.2); CARBON DIOXIDE 19 mmol/L (22-30); CHLORIDE 109 mmol/L (98-107); CREATININE RESULT 0.89 mg/dL (0.52-1.25); GLUCOSE 111 mg/dL (75-110); POTASSIUM 3.9 mmol/L (3.6-5.0); SODIUM 137.6 mmol/L (137-145)
--- NOTE | 2017-07-02 09:36 | RADIOLOGY REPORT (SQ) ---
EXAM DESCRIPTION: CHEST SINGLE VIEW COMPLETED DATE/TIME: 07/02/2017 9:13 am REASON FOR STUDY: S/P RT THORACENTESIS COMPARISON: 07/01/2017. EXAM PARAMETERS: NUMBER OF VIEWS: One view. TECHNIQUE: Single frontal radiographic view of the chest acquired. RADIATION DOSE: NA LIMITATIONS: None. FINDINGS: LUNGS AND PLEURA: Decrease in the right pleural effusion following thoracentesis. No pneu mothorax. Multiple lung masses in both lungs. MEDIASTINUM AND HILAR STRUCTURES: No masses. Contour normal. HEART AND VASCULAR STRUCTURES: Heart normal in size. Normal vasculature. BONES: No acute findings. HARDWARE: None in the chest. OTHER: No other significant finding. IMPRESSION: NO PNEUMOTHORAX FOLLOWING RIGHT-SIDED THORACENTESIS. MULTIPLE BILATERAL LUNG MASSES. TECHNICAL DOCUMENTATION: JOB ID: [id number]
--- NOTE | 2017-07-02 09:43 | RADIOLOGY REPORT (SQ) ---
EXAM DESCRIPTION: U/S THORACENTESIS WITH IMAGING COMPLETED DATE/TIME: 07/02/2017 9:26 am REASON FOR STUDY: effusion R06.00 DYSPNEA, UNSPECIFIED D68.9 COAGULATION DEFECT, UNSPECIFIED COMPARISON: None. LIMITATIONS: None. PROCEDURE: Procedure, risks, benefit, and alternative explained to patient who then gave written con sent. The posterior right chest wall was marked using ultrasound guidance. A time-out was called fo r correct marking verification. Chest prepped and draped using sterile technique. Local anesthesia a chieved using 10 ml of 1% lidocaine injection. A 6fr Safe-T- Centesis set was introduced into the [facility] pleural space. Fluid was aspirated. The catheter was removed and the entry site was covered wit h sterile bandage. No immediate complications noted. Images acquired during the procedure were stored on PACS. FINDINGS: ENTRY SITE: Posterior right chest. FLUID VOLUME: 2000 mL. FLUID ANALYSIS: Bloody fluid. OTHER: Fluid sent to the lab for testing. IMPRESSION: SUCCESSFUL THORACENTESIS USING ULTRASOUND GUIDANCE. COMMENT: Patient medication list reviewed: Yes- Quality ID# [id number]:Eligible professional attests to doc umenting in the medical record they obtained, updated, or reviewed the patient's current medications. Quality ID #[id number]: Final reports for procedures using fluoroscopy that document radiation exposure francesco liliam, or exposure time and number of fluorographic images (if radiation exposure indices are not avail able) TECHNICAL DOCUMENTATION: JOB ID: [id number] [employer]- All Rights Reserved
[2017-07-02 09:53] LABS: FLUID APPEARANCE CLOUDY; FLUID RBC AVERAGE 109.5; FLUID RBC DILUENT USED SALINE; FLUID RBC DILUTION FACTOR 10; FLUID RBC SIDE 1 108; FLUID RBC SIDE 2 111; FLUID TYPE PLEURAL; TOTAL RBC SQUARES COUNTED FLD 5
[2017-07-02] MEDS ORDERED: ATENOLOL 50 MG TABLET PO SCH (10:00)
[2017-07-02] MEDS ORDERED: AMLODIPINE BESYLATE 10 MG TABLET PO SCH (10:00)
[2017-07-02] MEDS ORDERED: ASPIRIN 81 MG TABLET, ENT COATED PO SCH (10:00)
[2017-07-02] MEDS ORDERED: ENOXAPARIN SODIUM INJ 40 MG/0.4 ML DISP.SYRIN SUBCUT SCH (10:00)
--- NOTE | 2017-07-02 10:38 | EKG REPORT ---
SEVERITY:- ABNORMAL ECG - SINUS RHYTHM PROBABLE LEFT ATRIAL ABNORMALITY LEFT VENTRICULAR HYPERTROPHY ANTERIOR Q WAVES, POSSIBLY DUE TO LVH : Confirmed by: Etienne Sanderson 02-Jul-2017 10:37:30
--- NOTE | 2017-07-02 11:31 | RADIOLOGY REPORT (SQ) ---
EXAM DESCRIPTION: CHEST SINGLE VIEW COMPLETED DATE/TIME: 07/02/2017 11:17 am REASON FOR STUDY: 2 HOURS S/P RT THORACENTESIS COMPARISON: 07/02/2017 at 0910 hours. EXAM PARAMETERS: NUMBER OF VIEWS: One view. TECHNIQUE: Single frontal radiographic view of the chest acquired. RADIATION DOSE: NA LIMITATIONS: None. FINDINGS: LUNGS AND PLEURA: No pneumothorax following right thoracentesis. Right pleural effusion u nchanged. Multiple lung masses. MEDIASTINUM AND HILAR STRUCTURES: No masses. Contour normal. HEART AND VASCULAR STRUCTURES: Heart normal in size. Normal vasculature. BONES: No acute findings. HARDWARE: None in the chest. OTHER: No other significant finding. IMPRESSION: STABLE APPEARANCE OF THE CHEST. NO PNEUMOTHORAX 2 HOURS AFTER RIGHT THORACENTESIS. TECHNICAL DOCUMENTATION: JOB ID: [id number]
[2017-07-02] MEDS: FAMOTIDINE 20 MG TABLET PO SCH (12:27)
--- NOTE | 2017-07-02 15:22 | RADIOLOGY REPORT (SQ) ---
EXAM DESCRIPTION: CHEST SINGLE VIEW COMPLETED DATE/TIME: 07/02/2017 3:14 pm REASON FOR STUDY: s/p thoracentesis COMPARISON: 07/02/2017 at 1107 hours. EXAM PARAMETERS: NUMBER OF VIEWS: One view. TECHNIQUE: Single frontal radiographic view of the chest acquired. RADIATION DOSE: NA LIMITATIONS: None. FINDINGS: LUNGS AND PLEURA: No change. No pneumothorax. Incidental skin fold overlying the left ch est. Multiple bilateral lung masses MEDIASTINUM AND HILAR STRUCTURES: No masses. Contour normal. HEART AND VASCULAR STRUCTURES: Heart normal in size. Normal vasculature. BONES: No acute findings. HARDWARE: None in the chest. OTHER: No other significant finding. IMPRESSION: STABLE APPEARANCE OF THE CHEST. MULTIPLE BILATERAL LUNG MASSES. NO PNEUMOTHORAX. TECHNICAL DOCUMENTATION: JOB ID: [id number]
--- NOTE | 2017-07-02 15:53 | PDOC DISCHARGE SUMMARY ---
General - Admit/Disc Date/PCP Admission Date/Primary Care Provider: 07/01/17 13:36 BRODERICK HAM MD Discharge Date: 07/02/17 - Discharge Diagnosis (1) Acute dyspnea Is this a current diagnosis for this admission?: Yes Summary: Patient presented to the emergency department with a gradually worsening dyspnea on exertion that increased significantly over the last 4 days. She was unable to ambulate more than 10 steps at a time without pausing to recover and was requiring to sleep high Lane's. Initial workup in the emergency department found a large right pleural effusion. She was admitted for observation overnight pending her thoracentesis which was completed this morning. Patient was recently treated as an outpatient with a Z-Ian for bronchitis. Based upon her HPI she was empirically started on Levaquin for treatment of community-acquired pneumonia. Blood cultures no growth at 24 hours. She will be provided a prescription for Levaquin to complete a total of a 5 day course of therapy. Patient reported immediate alleviation of her symptoms status post thoracentesis. She did require 2 L nasal cannula, primarily for comfort, overnight as her oxygen saturations never dropped below 92%. At time of discharge patient is ambulatory on room air, speaks full sentences, and reports that she feels back to her "normal self." She will be discharged home with instructions to follow-up with her primary care within 1 week, oncologist within 2 weeks, and to return to the emergency department for acute worsening of respiratory status. (2) Pleural effusion Is this a current diagnosis for this admission?: Yes Summary: Course as above. Patient underwent ultrasound-guided thoracentesis this morning, with removal of 2 L of fluid. At time of discharge cultures are still pending. (3) Nausea and vomiting Is this a current diagnosis for this admission?: Yes Summary: Resolved. Patient did not experience any nausea or vomiting while admitted. (4) Anemia Is this a current diagnosis for this admission?: Yes Summary: Chronic anemia. Stable at 9.6. - Additional Information Resuscitation Status: Do Not Resuscitate Discharge Diet: As Tolerated Discharge Activity: Activity As Tolerated, Balance Activity w/Rest Home Medications: Amlodipine Besylate [Norvasc 10 mg Tablet] 10 mg PO DAILY 07/01/17 Aspirin [Aspirin EC] 81 mg PO DAILY 07/01/17 Atenolol [Tenormin 50 mg Tablet] 50 mg PO DAILY 07/01/17 Esomeprazole Magnesium [Nexium] 20 mg PO DAILY 07/01/17 Multivitamin [Daily Multiple Vitamin] 1 each PO DAILY 07/01/17 Levofloxacin [Levaquin 750 mg Tablet] 750 mg PO DAILY #5 tablet 07/02/17 History of Present Illness History of Present Illness: ÁNGELA ALBRIGHT is a 72 year old female with history of hypertension and progressive multiple myeloma with known pulmonary and bone metastisis presently on chemotherapy. She presents to the emergency department with complaint of dyspnea x 4 days that has worsened to the extent that she is unable to walk more than 10-12 steps without difficulty and requires 20 minutes to recover. She reports orthopnea, stating that she has had to sleep in a straight back chair the last two nights. She reports having had some gradually worsening dyspnea over the last 4-6 weeks. She was seen by her oncologist 2 weeks ago and provided azithromycin for bronchitis. She states that at that time she was feverish and had a productive cough with copious amounts of thick sputum. The fever resolved with antibiotic therapy and her sputum production decreased significantly, however she never recovered to her baseline ease of breathing. Her symptoms have gradually worsened since completing the z-ian until she determined it was necessary to be evaluated in the emergency department today. Workup in the emergency department revealed a large right pleural effusion. She is referred to the hospitalist service for admission. Pt is seen sitting upright in bed. She is slightly tachypneic, but conversational on room air and maintaining oxygen saturations. She reports continued non-productive cough with nausea this morning and post-tussive emesis. She also reports waking with night sweats this week, though has not been able to document a fever. Otherwise, she denies chest pain, palpitations, abdominal pain, diarrhea. Physical Exam Vital Signs: Temp Pulse Resp BP Pulse Ox 97.4 F 96 16 115/67 99 07/02/17 11:23 07/02/17 11:23 07/02/17 11:23 07/02/17 11:23 07/02/17 11:23 Intake & Output 07/01/17 07/02/17 07/03/17 06:59 06:59 06:59 Intake Total 570 Balance 570 Weight 108.9 kg General appearance: PRESENT: no acute distress, well-developed, well-nourished Head exam: PRESENT: atraumatic, normocephalic Eye exam: PRESENT: conjunctiva pink, EOMI, PERRLA. ABSENT: scleral icterus Ear exam: PRESENT: normal external ear exam Mouth exam: PRESENT: moist, tongue midline Neck exam: ABSENT: carotid bruit, JVD, lymphadenopathy, thyromegaly Respiratory exam: PRESENT: clear to auscultation cricket, decreased breath sounds - Right middle and right lower lobe; improved significantly from yesterday. No other adventitious breath sounds auscultated., symmetrical, unlabored. ABSENT: rales, rhonchi, tachypnea, wheezes Cardiovascular exam: PRESENT: RRR, +S1, +S2. ABSENT: diastolic murmur, rubs, systolic murmur, tachycardia Pulses: PRESENT: normal dorsalis pedis pul Vascular exam: PRESENT: normal capillary refill GI/Abdominal exam: PRESENT: normal bowel sounds, soft. ABSENT: distended, guarding, mass, organolmegaly, rebound, tenderness Rectal exam: PRESENT: deferred Extremities exam: PRESENT: full ROM. ABSENT: calf tenderness, clubbing, pedal edema Neurological exam: PRESENT: alert, awake, oriented to person, oriented to place , oriented to time, oriented to situation, CN II-XII grossly intact. ABSENT: motor sensory deficit Psychiatric exam: PRESENT: appropriate affect, normal mood. ABSENT: homicidal ideation, suicidal ideation Skin exam: PRESENT: dry, intact, warm. ABSENT: cyanosis, rash Results Laboratory Results: 07/02/17 05:24 07/02/17 05:24 07/02/17 07/02/17 07/02/17 05:24 05:24 08:42 WBC 5.0 RBC 3.03 L Hgb 9.6 L Hct 27.7 L MCV 91 MCH 31.7 MCHC 34.8 RDW 18.1 H Plt Count 116 L Seg Neutrophils % 52.9 Lymphocytes % 29.7 Monocytes % 15.4 H Eosinophils % 1.8 Basophils % 0.2 Absolute Neutrophils 2.7 Absolute Lymphocytes 1.5 Absolute Monocytes 0.8 Absolute Eosinophils 0.1 Absolute Basophils 0.0 Sodium 137.6 Potassium 3.9 Chloride 109 H Carbon Dioxide 19 L Anion Gap 10 BUN 11 Creatinine 0.89 Est GFR ( Amer) > 60 Est GFR (Non-Af Amer) > 60 Glucose 111 H Calcium 7.7 L Fluid Type PLEURAL Fluid Source Fluid Color RED Fluid Appearance CLOUDY Fluid Viscosity LIQUID Fluid WBC 3550 Fluid RBC 78171 Impressions: Chest X-Ray 07/02/17 00:00 IMPRESSION: STABLE APPEARANCE OF THE CHEST. MULTIPLE BILATERAL LUNG MASSES. NO PNEUMOTHORAX. Thoracentesis Ultrasound 07/02/17 14:32 IMPRESSION: SUCCESSFUL THORACENTESIS USING ULTRASOUND GUIDANCE.
[2017-07-02 16:05] VITALS: BP 119/59
== END 2017-07-02 16:37 | disposition home or self-care (01) ==
LOC: ER 10:13 → UNDOADMOB 13:05 → EH 13:05 → 4S 14:43
PROVIDERS: ADMIT Internal Medicine; ATTEND Internal Medicine
PROC: 0W993ZZ Drainage of Right Pleural Cavity, Percutaneous Approach (ICD-10-PCS; principal; 2017-07-02)
PROC: BB4BZZZ Ultrasonography of Pleura (ICD-10-PCS; 2017-07-02)
DX: R06.09 Other forms of dyspnea (principal); J90 Pleural effusion, not elsewhere classified; R11.2 Nausea with vomiting, unspecified; T45.1X5A Adverse effect of antineoplastic and immunosuppressive drugs, initial encounter; D64.81 Anemia due to antineoplastic chemotherapy; Z66 Do not resuscitate; I10 Essential (primary) hypertension; Z79.899 Other long term (current) drug therapy; C90.00 Multiple myeloma not having achieved remission; C78.00 Secondary malignant neoplasm of unspecified lung; R61 Generalized hyperhidrosis; Z79.82 Long term (current) use of aspirin; Z87.09 Personal history of other diseases of the respiratory system; Z86.73 Personal history of transient ischemic attack (TIA), and cerebral infarction without residual deficits; Z85.828 Personal history of other malignant neoplasm of skin
CPT/HCPCS: 93005; 99285; 36415 ×2; 87040; 87205; 87206; 87116; 87070; 87101; 85025 ×2; 85610; 85730; 89050; 87075; 80048; 80053; 84484; 82945; 83615; 84157; 87015; 88162; 88305 ×2; 71010 ×2; 32555; 93010; 94640; A9270 ×6; J3490 ×2; J1956; 88341; 88342; J7620

== ENCOUNTER → 2017-07-06 | Outpatient (CLI) | payer MEDICARE, OTHER ==
--- NOTE | 2017-07-06 13:25 | RADIOLOGY REPORT (SQ) ---
EXAM DESCRIPTION: CHEST PA/LAT COMPLETED DATE/TIME: 07/06/2017 1:16 pm REASON FOR STUDY: SOB (R06.02), P EFFUSION (J91) COMPARISON: 12/11/2014 EXAM PARAMETERS: NUMBER OF VIEWS: two views TECHNIQUE: Digital Frontal and Lateral radiographic views of the chest acquired. RADIATION DOSE: NA LIMITATIONS: none FINDINGS: LUNGS AND PLEURA: Multiple large pleural based masses are present. There is marked opacif ication in the right base with the appearance of a large pleural effusion MEDIASTINUM AND HILAR STRUCTURES: No masses or contour abnormalities. HEART AND VASCULAR STRUCTURES: Heart normal size. No evidence for failure. BONES: No acute findings. HARDWARE: None in the chest. OTHER: No other significant finding. IMPRESSION: Multiple large pleural masses and likely significant right pleural effusion. TECHNICAL DOCUMENTATION: JOB ID: [id number] [employer]- All Rights Reserved
== END ==
LOC: RAD 12:47
PROVIDERS: ATTEND Internal Medicine Hematology & Oncology
DX: J90 Pleural effusion, not elsewhere classified (principal); R06.02 Shortness of breath
CPT/HCPCS: 71020

== ENCOUNTER 2017-07-14 13:10 | Day surgery (SDC) | payer MEDICARE, OTHER ==
[2017-07-14] MEDS ORDERED: LIDOCAINE 2% INJ (20 MG/ML) 20 ML MDV INJ PRN (13:50)
[2017-07-14] MEDS ORDERED: LIDOCAINE 2% INJ (20 MG/ML) 20 ML MDV ONE (14:09)
--- NOTE | 2017-07-14 14:28 | Operative Report ---
Operative Report DATE OF SURGERY: 07/14/17 PREOPERATIVE DIAGNOSIS: Malignant right pleural effusion, recurrent POSTOPERATIVE DIAGNOSIS: Same OPERATION: Insertion of right chest Pleurx catheter and thoracentesis SURGEON: BRODERICK ALMONTE 1ST RN INTENSIVE CARE UNIT: [facility] ANESTHESIA: Local TISSUE REMOVED OR ALTERED: Fluid right chest COMPLICATIONS: None ESTIMATED BLOOD LOSS: Scant INTRAOPERATIVE FINDINGS: See below PROCEDURE: Patient was taken from the endoscopy preop. To 1 of the endoscopy suite where she was placed in the semirecumbent left lateral decubitus position. She agreed to have the procedure performed under straight local. Surgical plan surgical timeout were conducted. The right lateral chest wall was prepped and draped in a sterile fashion with chlorhexidine. At approximately intercostal space 8 and 9, the skin was anesthetized with 1% lidocaine plain #11 blade, code needle and wire threaded into the right pleural space A suitable site for exit of the Pleurx catheter was chosen on the more anterior lateral chest wall. Subcutaneous tunnel was anesthetized with 1% plain lidocaine. A second stab was made for the exit site of the catheter with the 11 blade, then the catheter using the tunneling device was tunneled between the 2 incisions. Using the Seldinger technique a small dilator and a medium size dilator and the dilator with a strip away sheath were threaded over the Glidewire. Upon removing the Glidewire and dilator, the patient evacuated approximately 200 cc of pleural fluid. We then threaded the catheter into the right chest no difficulty. The catheter was then attached to the proprietary and we proceeded to evacuate an additional 2 L of pleural fluid, nonbloody. Catheter was secured to the skin with the 0 silk suture, and initial incision closed with the 3-0 Vicryl appropriate adhesives dural dressings applied. At the conclusion of the thoracentesis, portable upright chest x-ray was pending at time of this dictation. The physician clinical assistant professor, Ms. Quach, provided assistance during this case by: assisting with retracting tissue, instillation of local anesthesia and closure of skin incisions.
--- NOTE | 2017-07-14 14:33 | PDOC DISCHARGE SUMMARY ---
Discharge Summary (SDC) - Discharge Final Diagnosis: Recurrent malignant right pleural effusion Date of Surgery: 07/14/17 Discharge Date: 07/14/17 Condition: Good Treatment or Instructions: Instruct patient on appropriate care, sterile technique of capping and uncapping Pleurx catheter and drainage procedures. Patient can follow-up with Dr. Blas at [facility] oncology group as previously scheduled. Patient can take her home medications, regular diet and pain medication as needed Referrals: BRODERICK HAM MD [Primary Care Provider] - Discharge Diet: As Tolerated Respiratory Treatments at Home: Deep Breathing/Coughing Discharge Activity: Activity As Tolerated Home Care Assistance: None Needed Report the Following to Your Physician Immediately: Shortness of Breath, Increase in Pain, Fever over 101 Degrees
--- NOTE | 2017-07-14 15:26 | RADIOLOGY REPORT (SQ) ---
EXAM DESCRIPTION: CHEST SINGLE VIEW COMPLETED DATE/TIME: 07/14/2017 3:16 pm REASON FOR STUDY: POST OP COMPARISON: Chest film 07/13/2017, 07/06/2017, 07/02/2017, 07/01/2017 EXAM PARAMETERS: NUMBER OF VIEWS: One view. TECHNIQUE: Single frontal radiographic view of the chest acquired. RADIATION DOSE: NA LIMITATIONS: None. FINDINGS: LUNGS AND PLEURA: Post right PleurX catheter placement. Catheter is seen over the right m id chest. Trace apical pneumothorax. Significant decrease in the large right pleural effusion seen yesterday. There is patchy right lower lobe airspace disease, atelectasis versus re-expansion pulmonary edema. Multiple pleural-based chest masses are present bilaterally, unchanged from prior studies. No acute left infiltrates. No left pleural effusion or pneumothorax. MEDIASTINUM AND HILAR STRUCTURES: No masses. Contour normal. HEART AND VASCULAR STRUCTURES: Heart normal in size. Normal vasculature. BONES: Old left lateral and posterior rib fractures HARDWARE: New PleurX catheter along the right lateral chest OTHER: No other significant finding. IMPRESSION: Post right PleurX catheter placement. Trace apical pneumothorax. Significant decrease in the right pleural effusion. TECHNICAL DOCUMENTATION: JOB ID: [id number] [employer]- All Rights Reserved
[2017-07-14 16:03] VITALS: BP 126/89
== END 2017-07-14 15:50 | disposition home or self-care (01) ==
LOC: END 13:10
PROVIDERS: ATTEND Surgery
PROC: 0W993ZZ Drainage of Right Pleural Cavity, Percutaneous Approach (ICD-10-PCS; principal; 2017-07-14 13:30)
DX: J91.0 Malignant pleural effusion (principal); C90.02 Multiple myeloma in relapse; D47.2 Monoclonal gammopathy; D64.9 Anemia, unspecified; Z88.5 Allergy status to narcotic agent; Z88.2 Allergy status to sulfonamides; Z88.8 Allergy status to other drugs, medicaments and biological substances
CPT/HCPCS: 32554; 71010; J3490

== ENCOUNTER → 2017-08-25 | Outpatient (CLI) | payer MEDICARE, OTHER, MEDICAID ==
--- NOTE | 2017-08-25 13:49 | RADIOLOGY REPORT (SQ) ---
EXAM DESCRIPTION: CHEST PA/LATERAL COMPLETED DATE/TIME: 08/25/2017 1:25 pm REASON FOR STUDY: SHORTNESS OF BREATH,MALIGNANT PLEURAL EFFUSION R06.02 SHORTNESS OF BREATH J91.0 MALIGNANT PLEURAL EFFUSION J98.01 ACUTE BRONCHOSPASM COMPARISON: 07/14/2017 NUMBER OF VIEWS: Two view TECHNIQUE: Frontal and lateral radiographic images of the chest acquired. LIMITATIONS: None. FINDINGS: LUNGS AND PLEURA: Bilateral pulmonary masses not significantly changed. Improved aeration right lower lobe. No significant pneumothorax. MEDIASTINUM AND HILAR STRUCTURES: Stable heart size and mediastinal structures. HEART AND VASCULAR STRUCTURES: Stable appearance. SUPPORT DEVICES: Appropriate location without change. BONES: No acute findings. OTHER: No other significant finding. IMPRESSION: Pulmonary masses. Improved aeration right lower lobe. No pneumothorax. TECHNICAL DOCUMENTATION: JOB ID: [id number] [employer]- All Rights Reserved
== END ==
LOC: OD 13:10
PROVIDERS: ATTEND Internal Medicine Hematology & Oncology
DX: R06.02 Shortness of breath (principal); J91.0 Malignant pleural effusion; J98.01 Acute bronchospasm
CPT/HCPCS: 71020

== ENCOUNTER → 2017-09-11 | Outpatient (CLI) | payer MEDICARE, OTHER, MEDICAID ==
--- NOTE | 2017-09-12 19:02 | RADIOLOGY REPORT (SQ) ---
EXAM DESCRIPTION: CT CHEST WITHOUT COMPLETED DATE/TIME: 09/11/2017 11:20 am REASON FOR STUDY: MYELOMA, PLASMACYTOMAS C90.02 MULTIPLE MYELOMA IN RELAPSE COMPARISON: 11/27/2016. 08/25/2017 two-view chest. TECHNIQUE: CT scan performed of the chest without intravenous contrast. Images reviewed with lung, soft tissue and bone windows. Reconstructed coronal and sagittal MPR images reviewed. All images st ored on PACS. All CT scanners at this facility use dose modulation, iterative reconstruction, and/or weight based d osing when appropriate to reduce radiation dose to as low as reasonably achievable (ALARA). [facility]: Dose Right [facility]: CareDose [facility]: Dose Right [facility]: Teradose 4D [facility]: [employer] RADIATION DOSE: CT Rad equipment meets quality standard of care and radiation dose reduction techniq ues were employed. CTDIvol: 4.8 mGy. DLP: 195 mGy-cm. mGy. LIMITATIONS: No technical limitations. FINDINGS: LUNGS AND PLEURA: Masslike pleural-based lesions bilaterally. These measure up to more th an 7 cm maximal transverse dimension. Most of this looks like soft tissue density. Trace component of drainable right fluid. There are [address] on the right. Lesser changes related to the left pleura. Mild volume loss/ scar in the right lower lobe. HILAR AND MEDIASTINAL STRUCTURES: Limited assessment without IV contrast. There is adenopathy presen t with a right peritracheal node measuring up to 1.7 cm, smaller nodes throughout the mediastinum. HEART AND VASCULAR STRUCTURES: No pericardial effusion. No evidence of aortic aneurysm. UPPER ABDOMEN: Isodense possible mass in the upper pole of the left kidney measuring 3 cm. New since last year. THYROID AND OTHER SOFT TISSUES: No masses. No adenopathy. BONES: Bilateral relatively chronic appearing nondisplaced rib fractures with associated callus and p eriosteal new bone formation. No sternal or thoracic compression fractures. HARDWARE: As above. OTHER: No other significant findings. IMPRESSION: 1. Progressive solid-appearing pleural based masses in the bilateral lungs since November 05. Trace right pleural fluid with [address] 2. New mass in the left renal upper po le. TECHNICAL DOCUMENTATION: JOB ID: [id number] Quality ID # [id number]: Final reports with documentation of one or more dose reduction techniques (e.g., Au tomated exposure control, adjustment of the mA and/or kV according to patient size, use of iterative reconstruction technique) 2010 [employer]- All Rights Reserved
== END ==
LOC: RAD 10:31
PROVIDERS: ATTEND Internal Medicine Hematology & Oncology
DX: C90.02 Multiple myeloma in relapse (principal)
CPT/HCPCS: 71250

== ENCOUNTER → 2017-09-29 | Outpatient (CLI) | payer MEDICARE, OTHER, MEDICAID ==
[2017-09-29 18:11] LABS: WHITE BLOOD COUNT 10.6 10^3/uL (4.0-10.5)
[2017-09-29 18:17] LABS: PLATELET ESTIMATE 98 10^3/uL (150-450)
[2017-09-29 18:19] LABS: ABSOLUTE NEUTROPHILS# (MANUAL) 4.7 10^3/uL (1.7-8.2); ANISOCYTOSIS SLIGHT; BAND NEUTROPHILS % (MANUAL) 1 % (3-5); BASOPHILS % (MANUAL) 0 % (0-2); EOSINOPHILS % (MANUAL) 0 % (0-6); LYMPHOCYTES % (MANUAL) 47 % (13-45); MONOCYTES % (MANUAL) 9 % (3-13); NUCLEATED RED BLOOD CELLS 4 /100 WBC (0); PLATELET COMMENT DECREASED; ROULEAUX 1+; SEGMENTED NEUTROPHILS % (MAN) 43 % (42-78)
[2017-09-29 18:20] LABS: POLYCHROMASIA SLIGHT
[2017-09-29 18:26] LABS: TOTAL CELLS COUNTED 100
[2017-09-29 18:33] LABS: OVALOCYTES SLIGHT; POIKILOCYTOSIS SLIGHT
[2017-09-30 11:30] LABS: PATH REVIEW PATHOLOGIST REVIEWED
== END ==
LOC: OD 13:08
PROVIDERS: ATTEND Internal Medicine Hematology & Oncology
DX: D64.9 Anemia, unspecified (principal); C90.02 Multiple myeloma in relapse
CPT/HCPCS: 36415; 85025

== ENCOUNTER 2017-10-01 23:51 | Emergency (ER) | payer MEDICARE, OTHER, MEDICAID ==
--- NOTE | 2017-10-02 02:06 | ER Document Report ---
ED Medical Screen (RME) - General Chief Complaint: Abdominal Pain Stated Complaint: ABDOMINAL PAIN Time Seen by Provider: 10/02/17 02:03 Mode of Arrival: Ambulatory Information source: Patient Notes: Patient presents complaining of lower abdominal pain for the past 3 days. Patient does report some nausea. Patient denies any vomiting or diarrhea. Patient denies any urinary symptoms. Last bowel movement was few days ago. Patient is concerned that her pain is related to a malpositioned pessary. hx: Multiple myeloma I have greeted and performed a rapid initial assessment of this patient. A comprehensive ED assessment and evaluation of the patient, analysis of test results and completion of the medical decision making process will be conducted by additional ED providers. TRAVEL OUTSIDE OF THE [place] IN LAST 30 DAYS: No - Related Data Allergies/Adverse Reactions: povidone-iodine [From Betadine] Allergy (Severe, Verified 07/14/17 13:30) Cellulitis soap [From Betadine] Allergy (Severe, Verified 07/14/17 13:30) Cellulitis cefaclor [From Ceclor] Allergy (Verified 07/14/17 13:30) hydrogen peroxide [Hydrogen Peroxide] Allergy (Verified 07/14/17 13:30) lanolin [Lanolin] Allergy (Verified 07/14/17 13:30) shellfish derived Allergy (Verified 07/14/17 13:30) Sulfa (Sulfonamide Antibiotics) Allergy (Verified 07/14/17 13:30) lanolin alcohols [Wool Alcohols] Adverse Reaction (Verified 07/14/17 13:30) Past Medical History - Past Medical History Cardiac Medical History: Reports: Hx Coronary Artery Disease - R EYE STROKE, Hx DVT, Hx Hypertension Denies: Hx Congestive Heart Failure, Hx Heart Attack Pulmonary Medical History: Reports: Hx Bronchitis, Hx Pneumonia Denies: Hx Asthma, Hx COPD, Hx Tuberculosis Neurological Medical History: Reports: Hx Cerebrovascular Accident. Denies: Hx Seizures Renal/ Medical History: Denies: Hx End Stage Renal Disease, Hx Kidney Stones, Hx Peritoneal Dialysis Malignancy Medical History: Reports: Hx Bone Cancer, Hx Skin Cancer GI Medical History: Reports: Hx Hiatal Hernia. Denies: Hx Cirrhosis, Hx Gastroesophageal Reflux Disease, Hx Ulcer Musculoskeltal Medical History: Reports Hx Arthritis, Denies Hx Multiple Sclerosis, Reports Hx Musculoskeletal Trauma Psychiatric Medical History: Denies: Hx Bipolar Disorder, Hx Depression, Hx Schizophrenia Traumatic Medical History: Reports: Hx Fractures Past Surgical History: Reports: Hx Hysterectomy, Hx Tonsillectomy - Immunizations Immunizations up to date: Yes Hx Diphtheria, Pertussis, Tetanus Vaccination: Yes - 10/12/14 History of Influenza Vaccine for 06/2017 - 11/2017 Season: Refused Physical Exam - Vital signs Vitals: Temp Pulse Resp BP Pulse Ox 97.4 F 105 H 18 150/87 H 98 10/02/17 00:47 10/02/17 00:47 10/02/17 00:47 10/02/17 00:47 10/02/17 00:47 - Abdominal Tenderness: Tender - Lower abdominal tenderness Course - Vital Signs Vital signs: Temp Pulse Resp BP Pulse Ox 97.4 F 105 H 18 150/87 H 98 10/02/17 00:47 10/02/17 00:47 10/02/17 00:47 10/02/17 00:47 10/02/17 00:47
[2017-10-02 02:49] LABS: APPEARANCE,URINE SLIGHTLY-CLOUDY; BILIRUBIN,URINE NEGATIVE (NEGATIVE); COLOR,URINE YELLOW; GLUCOSE, URINE NEGATIVE (NEGATIVE); KETONES,URINE NEGATIVE (NEGATIVE); LEUKOCYTE ESTERASE,URINE MODERATE (NEGATIVE); NITRITE,URINE NEGATIVE (NEGATIVE); PROTEIN,URINE 30 mg/dL (NEGATIVE); URINE SPECIFIC GRAVITY 1.013; UROBILINOGEN,URINE NEGATIVE mg/dL (<2.0)
[2017-10-02 03:05] LABS: ALANINE AMINOTRANSFERASE 67 U/L (9-52); ALBUMIN 2.7 g/dL (3.5-5.0); ALKALINE PHOSPHATASE 127 U/L (38-126); ANION GAP 8 (5-19); ASPARTATE AMINO TRANSFERASE 65 U/L (14-36); BILIRUBIN,DIRECT 0.2 mg/dL (0.0-0.4); BILIRUBIN,TOTAL 0.3 mg/dL (0.2-1.3); BLOOD UREA NITROGEN 20 mg/dL (7-20); CALCIUM 9.1 mg/dL (8.4-10.2); CARBON DIOXIDE 17 mmol/L (22-30); CHLORIDE 111 mmol/L (98-107); GLUCOSE 95 mg/dL (75-110); LIPASE 305.4 U/L (23-300); POTASSIUM 4.1 mmol/L (3.6-5.0); SODIUM 135.7 mmol/L (137-145)
[2017-10-02 03:13] LABS: TOTAL PROTEIN 15.8 g/dL (6.3-8.2)
[2017-10-02 03:56] LABS: ABSOLUTE LYMPHOCYTES# (MANUAL) 7.3 10^3/uL (0.5-4.7); ABSOLUTE MONOCYTES # (MANUAL) 4.3 10^3/uL (0.1-1.4); ABSOLUTE NEUTROPHILS# (MANUAL) 13.6 10^3/uL (1.7-8.2); BASOPHILS % (MANUAL) 0 % (0-2); EOSINOPHILS % (MANUAL) 0 % (0-6); LYMPHOCYTES % (MANUAL) 27 % (13-45); MONOCYTES % (MANUAL) 17 % (3-13); NUCLEATED RED BLOOD CELLS 4 /100 WBC (0); SEGMENTED NEUTROPHILS % (MAN) 54 % (42-78); TOTAL CELLS COUNTED 100
--- NOTE | 2017-10-02 04:01 | RADIOLOGY REPORT (SQ) ---
EXAM DESCRIPTION: CT ABDOMEN AND PELVIS WITHOUT CONTRAST CLINICAL HISTORY: lower pelvic pain COMPARISON: None Available. TECHNIQUE: CT of the abdomen and pelvis without IV contrast. FINDINGS: Abdomen: The liver has normal size and density. Cholelithiasis. The spleen, pancreas, and adrenal glands are unremarkable. The kidneys have normal size and contour without evidence of hydronephrosis. No obstructing ureteral calculi. There is an exophytic structure arising from the superior medial aspect of the left kidney measuring 3.2 cm. Aortoiliac atherosclerosis. IVC is unremarkable. No free intraperitoneal air. The stomach and duodenum have normal course. Pelvis: Pessary noted in the pelvis. Prior hysterectomy. Urinary bladder is unremarkable. Small amount of free pelvic fluid. No definite pelvic lymphadenopathy. No dilated loops of large or small bowel. Normal appendix. Right chest tube in place with loculated right pleural effusion and consolidation involving the right middle and lower lobes. Small left pleural effusion. No destructive bone lesions identified. Degenerative change of the spine. DLP: 225.52 mGy-cm IMPRESSION: 1. There is a small amount of free pelvic fluid of indeterminate etiology. No acute inflammatory or obstructive process identified in the abdomen or pelvis. 2. Moderate loculated right pleural effusion with chest tube in place. Right middle and lower lobe consolidations. Small left pleural effusion. 3. 3.2 cm exophytic structure arising from the medial aspect of the superior pole of the left kidney. This may represent a increased density cyst, renal mass, or atypical renal lobulation. Evaluation with contrast-enhanced CT or MRI recommended for more definitive characterization. This exam was performed according to our departmental dose-optimization program, which includes automated exposure control, adjustment of the mA and/or kV according to patient size and/or use of iterative reconstruction technique.
[2017-10-02 04:02] LABS: ANISOCYTOSIS 1+; PLATELET COMMENT DECREASED; POIKILOCYTOSIS 1+; POLYCHROMASIA SLIGHT; STOMATOCYTES 1+; TOXIC GRANULATION SLIGHT
[2017-10-02] MEDS ORDERED: NORMAL SALINE 1000 ML 1,000 ML IV ONE (05:34)
--- NOTE | 2017-10-02 05:36 | ER Document Report ---
ED GI/ <MALENA VASQUEZN - Last Filed: 10/02/17 08:28> - General Mode of Arrival: Ambulatory Information source: Patient TRAVEL OUTSIDE OF THE [place] IN LAST 30 DAYS: No - HPI Patient complains to provider of: Pelvic pain. No: Dysuria, Vomiting Onset: Other - 3 days Timing/Duration: Persistent Quality of pain: Achy Pain Level: 3 Location: Pelvis Vaginal bleeding (Compared to normal period): None Associated symptoms: Nausea. denies: Diarrhea, Dysuria, Fever, Loss of appetite , Urinary hesitancy, Urinary frequency, Urinary retention, Urinary urgency, Vomiting Exacerbated by: Denies Relieved by: Denies Similar symptoms previously: No Recently seen / treated by doctor: Yes <SCOTT RIOS - Last Filed: 10/02/17 19:17> - General Chief Complaint: Abdominal Pain Stated Complaint: ABDOMINAL PAIN Time Seen by Provider: 10/02/17 02:03 Notes: Patient presents with lower pelvic pain for the past 3 days. Patient has a pessary and states that the pessary got dislodged and she feels that this is the cause of her pelvic pain. Patient does have a history of multiple myeloma. Patient does report nausea but denies any vomiting or diarrhea. Patient denies any fever or urinary symptoms. Patient reports normal appetite. (SCOTT RIOS) - Related Data Allergies/Adverse Reactions: povidone-iodine [From Betadine] Allergy (Severe, Verified 07/14/17 13:30) Cellulitis soap [From Betadine] Allergy (Severe, Verified 07/14/17 13:30) Cellulitis cefaclor [From Ceclor] Allergy (Verified 07/14/17 13:30) hydrogen peroxide [Hydrogen Peroxide] Allergy (Verified 07/14/17 13:30) lanolin [Lanolin] Allergy (Verified 07/14/17 13:30) shellfish derived Allergy (Verified 07/14/17 13:30) Sulfa (Sulfonamide Antibiotics) Allergy (Verified 07/14/17 13:30) lanolin alcohols [Wool Alcohols] Adverse Reaction (Verified 07/14/17 13:30) Past Medical History - General Information source: Patient, Relative - Social History Smoking Status: Unknown if Ever Smoked Frequency of alcohol use: None Drug Abuse: None Occupation: none Lives with: Spouse/Significant other Family History: Arthritis, CVA, Hyperlipidemia, Hypertension, Malignancy Patient has suicidal ideation: No Patient has homicidal ideation: No - Past Medical History Cardiac Medical History: Reports: Hx Coronary Artery Disease - R EYE STROKE, Hx DVT, Hx Hypertension Denies: Hx Congestive Heart Failure, Hx Heart Attack Pulmonary Medical History: Reports: Hx Bronchitis, Hx Pneumonia Denies: Hx Asthma, Hx COPD, Hx Tuberculosis Neurological Medical History: Reports: Hx Cerebrovascular Accident. Denies: Hx Seizures Renal/ Medical History: Denies: Hx End Stage Renal Disease, Hx Kidney Stones, Hx Peritoneal Dialysis Malignancy Medical History: Reports: Hx Bone Cancer, Hx Skin Cancer, Other - multiple myeloma GI Medical History: Reports: Hx Hiatal Hernia. Denies: Hx Cirrhosis, Hx Gastroesophageal Reflux Disease, Hx Ulcer Musculoskeltal Medical History: Reports Hx Arthritis, Denies Hx Multiple Sclerosis, Reports Hx Musculoskeletal Trauma Psychiatric Medical History: Denies: Hx Bipolar Disorder, Hx Depression, Hx Schizophrenia Traumatic Medical History: Reports: Hx Fractures Past Surgical History: Reports: Hx Hysterectomy, Hx Tonsillectomy - Immunizations Immunizations up to date: Yes Hx Diphtheria, Pertussis, Tetanus Vaccination: Yes - 10/12/14 <SCOTT RIOS - Last Filed: 10/02/17 19:17> Review of Systems - Review of Systems Constitutional: No symptoms reported. denies: Fever, Recent illness EENT: No symptoms reported Cardiovascular: No symptoms reported. denies: Chest pain Respiratory: No symptoms reported. denies: Cough, Short of breath Gastrointestinal: Abdominal pain, Nausea. denies: Diarrhea, Vomiting Genitourinary: No symptoms reported. denies: Dysuria, Flank pain Female Genitourinary: Other - pessary dislodgement Musculoskeletal: No symptoms reported Skin: No symptoms reported Hematologic/Lymphatic: No symptoms reported Neurological/Psychological: No symptoms reported <SCOTT RIOS - Last Filed: 10/02/17 19:17> Physical Exam - General General appearance: Appears well, Alert In distress: None - HEENT Head: Normocephalic, Atraumatic Eyes: Normal Conjunctiva: Normal Nasal: Normal Mouth/Lips: Normal Neck: Normal, Supple. No: Lymphadenopathy - Respiratory Respiratory status: No respiratory distress Chest status: Nontender Breath sounds: Rales - bases Chest palpation: Other - chest tube - Cardiovascular Rhythm: Regular Heart sounds: S1 appreciated, S2 appreciated Murmur: No - Abdominal Inspection: Normal Distension: No distension Bowel sounds: Normal Tenderness: Tender - lower pelvic Organomegaly: No organomegaly - Genitourinary External exam: Normal Speculum exam: Other - pessary in vaginal vault - Back Back: Normal, Nontender. No: CVA tenderness - Extremities General upper extremity: Normal inspection, Nontender, Normal ROM General lower extremity: Normal inspection, Nontender, Normal ROM - Neurological Neuro grossly intact: Yes Cognition: Normal Ragan Coma Scale Eye Opening: Spontaneous Nickie Coma Scale Verbal: Oriented Ragan Coma Scale Motor: Obeys Commands Ragan Coma Scale Total: 15 - Psychological Associated symptoms: Normal affect, Normal mood - Skin Skin Temperature: Warm Skin Moisture: Dry Skin Color: Normal <SCOTT RIOS - Last Filed: 10/02/17 19:17> - Vital signs Vitals: Temp Pulse Resp BP Pulse Ox 97.4 F 105 H 18 150/87 H 98 10/02/17 00:47 10/02/17 00:47 10/02/17 00:47 10/02/17 00:47 10/02/17 00:47 Course - Laboratory Result Diagrams: 10/02/17 03:10 10/02/17 02:06 <ED VASQUEZ - Last Filed: 10/02/17 08:28> - Laboratory Result Diagrams: 10/02/17 03:10 10/02/17 02:06 - Diagnostic Test Radiology reviewed: Reports reviewed <SCOTT RIOS - Last Filed: 10/02/17 19:17> - Re-evaluation Re-evalutation: 10/02/17 08:11 I did speak with OBGYN to give them a courtesy 'heads-up.' Dr. Ramirez told me that if the pessary feels circular to pull it out, but if it is irregularly shaped then an OBGYN will have to do it with suction. She states that pt will most likely need re-fitted. Spoke with Scott who stated that the pessary is not circular. We will keep the formal consult order at this time. 10/02/17 08:28 I did review this case with Dr. Wyatt who states that patient does not appear toxic at all and believes that it could be her Neupogen medication causing some of her WBC changes. Dr. Wyatt states that patient does not want to be admitted and wants to go home which he is okay with. I did review again with the patient and patient is adamant about going home as her kids are on their way and that she feels well. As for her pessary, patient is to call OB /MARINE GEOLOGIST and schedule appointment as an outpatient. Patient states that she has been talking with Dr. Douglass about getting refitted for another pessary. Dr. Ramirez states that this is not something that needs to be done in the emergency department and she needs to be seen as an outpatient for her pessary. Formal consult was then withdrawn. Patient's vitals are stable. Patient has no new concerns or complaints & we will discharge in stable condition. (ED VASQUEZ) 10/02/17 05:[address] Jim regarding patient presentation, reviewed diagnostic test results. Recommends consultation with Dr. Jarrett. Consulted with Dr. Jarrett guarding patient presentation, reviewed diagnostic test results. Dr. Jarrett concerned about patient not taking her home medications appropriately and states that she has noticed some confusion during patient's visits in the office this week. Dr. Jarrett states that she really feels that patient needs to be admitted and request hospitalist consultation. 10/02/17 06:[address] Desouza regarding patient presentation, reviewed diagnostic test results as well as exam findings. Discussed conversation with patient's oncologist. Dr. Desouza except patient is an admission but the patient will be evaluated by the daytime hospitalist. 10/02/17 06:10 Patient states that she is allergic to Cipro, medication changed to doxycycline. 10/02/17 06:56 Dr Jarrett evaluated pt, requests that MARINE GEOLOGIST evaluate pt for pessary management. 10/02/17 07:57 Call placed to comptometer operator for consultation with MARINE GEOLOGIST, Dr. Ramirez paged. Report and handoff given to Ed SALOMON (SCOTT RIOS) - Vital Signs Vital signs: Temp Pulse Resp BP Pulse Ox 97.7 F 108 H 16 121/70 96 10/02/17 08:56 10/02/17 08:56 10/02/17 08:56 10/02/17 08:56 10/02/17 08:56 - Laboratory Laboratory results interpreted by me: 10/02/17 10/02/17 10/02/17 02:06 02:06 03:10 WBC 25.2 H D Hct 21.0 L Plt Count 106 L Manual Hct 21.0 L Monocytes % (Manual) 17 H Abs Neuts (Manual) 13.6 H Abs Lymphs (Manual) 7.3 H Abs Monocytes (Manual) 4.3 H Sodium 135.7 L Chloride 111 H Carbon Dioxide 17 L Est GFR ( Amer) 58 L Est GFR (Non-Af Amer) 48 L AST 65 H ALT 67 H Alkaline Phosphatase 127 H Total Protein 15.8 H Albumin 2.7 L Lipase 305.4 H Urine Protein 30 H Urine Blood MODERATE H Ur Leukocyte Esterase MODERATE H 10/02/17 06:02 Labs- Entire Visit 10/02/17 10/02/17 10/02/17 02:06 02:06 02:06 WBC Cancelled RBC Cancelled Hgb Cancelled Hct Cancelled MCV Cancelled MCH Cancelled MCHC Cancelled RDW Cancelled Plt Count Cancelled Manual Hct Total Counted Seg Neutrophils % Cancelled Seg Neuts % (Manual) Lymphocytes % Cancelled Lymphocytes % (Manual) Atypical Lymphs % Monocytes % Cancelled Monocytes % (Manual) Eosinophils % Cancelled Eosinophils % (Manual) Basophils % Cancelled Basophils % (Manual) Absolute Neutrophils Cancelled Abs Neuts (Manual) Absolute Lymphocytes Cancelled Abs Lymphs (Manual) Absolute Monocytes Cancelled Abs Monocytes (Manual) Absolute Eosinophils Cancelled Absolute Eos (Manual) Absolute Basophils Cancelled Abs Basophils (Manual) Nucleated RBCs Toxic Granulation Platelet Estimate Cancelled Platelet Comment Polychromasia Poikilocytosis Anisocytosis Stomatocytes Sodium 135.7 L Potassium 4.1 Chloride 111 H Carbon Dioxide 17 L Anion Gap 8 BUN 20 Creatinine 1.12 Est GFR ( Amer) 58 L Est GFR (Non-Af Amer) 48 L Glucose 95 Calcium 9.1 Total Bilirubin 0.3 Direct Bilirubin 0.2 Neonat Total Bilirubin Not Reportable Neonat Direct Bilirubin Not Reportable Neonat Indirect Bili Not Reportable AST 65 H ALT 67 H Alkaline Phosphatase 127 H Total Protein 15.8 H Albumin 2.7 L Lipase 305.4 H Urine Color YELLOW Urine Appearance SLIGHTLY-CLOUDY Urine pH 5.0 Ur Specific [place] 1.013 Urine Protein 30 H Urine Glucose (UA) NEGATIVE Urine Ketones NEGATIVE Urine Blood MODERATE H Urine Nitrite NEGATIVE Urine Bilirubin NEGATIVE Urine Urobilinogen NEGATIVE Ur Leukocyte Esterase MODERATE H Urine WBC (Auto) 9 Urine RBC (Auto) 5 U Hyaline Cast (Auto) 2 Squamous Epi Cells Auto 1 Urine Mucus (Auto) RARE Urine Ascorbic Acid NEGATIVE Slides for Path Review Cancelled 10/02/17 03:10 WBC 25.2 H D RBC Hgb Hct 21.0 L MCV MCH MCHC RDW Plt Count 106 L Manual Hct 21.0 L Total Counted 100 Seg Neutrophils % Not Reportable Seg Neuts % (Manual) 54 Lymphocytes % Not Reportable Lymphocytes % (Manual) 27 Atypical Lymphs % 2 Monocytes % Not Reportable Monocytes % (Manual) 17 H Eosinophils % Not Reportable Eosinophils % (Manual) 0 Basophils % Not Reportable Basophils % (Manual) 0 Absolute Neutrophils Not Reportable Abs Neuts (Manual) 13.6 H Absolute Lymphocytes Not Reportable Abs Lymphs (Manual) 7.3 H Absolute Monocytes Not Reportable Abs Monocytes (Manual) 4.3 H Absolute Eosinophils Not Reportable Absolute Eos (Manual) 0.0 Absolute Basophils Not Reportable Abs Basophils (Manual) 0.0 Nucleated RBCs 4 Toxic Granulation SLIGHT Platelet Estimate Platelet Comment DECREASED Polychromasia SLIGHT Poikilocytosis 1+ Anisocytosis 1+ Stomatocytes 1+ Sodium Potassium Chloride Carbon Dioxide Anion Gap BUN Creatinine Est GFR ( Amer) Est GFR (Non-Af Amer) Glucose Calcium Total Bilirubin Direct Bilirubin Neonat Total Bilirubin Neonat Direct Bilirubin Neonat Indirect Bili AST ALT Alkaline Phosphatase Total Protein Albumin Lipase Urine Color Urine Appearance Urine pH Ur Specific [place] Urine Protein Urine Glucose (UA) Urine Ketones Urine Blood Urine Nitrite Urine Bilirubin Urine Urobilinogen Ur Leukocyte Esterase Urine WBC (Auto) Urine RBC (Auto) U Hyaline Cast (Auto) Squamous Epi Cells Auto Urine Mucus (Auto) Urine Ascorbic Acid Slides for Path Review (SCOTT RIOS) Discharge <ED VASQUEZ - Last Filed: 10/02/17 08:28> <SCOTT RIOS - Last Filed: 10/02/17 19:17> - Discharge Clinical Impression: Problem with vaginal pessary Qualifiers: Encounter type: initial encounter Qualified Code(s): T83.9XXA - Unspecified complication of genitourinary prosthetic device, implant and graft, initial encounter Leukocytosis Qualifiers: Leukocytosis type: unspecified Qualified Code(s): D72.829 - Elevated white blood cell count, unspecified Condition: Stable Disposition: HOME, SELF-CARE Additional Instructions: Maintain adequate fluid and food intake Take home medications as directed Schedule a follow-up with ESCALATION ENGINEER for your pessary Recheck with your PCM in 1 week Schedule a follow-up with Dr. Jarrett next week Return to the ED with any worsening symptoms and/or development of fever, headache, chest pain, palpitations, syncope, shortness of breath, trouble breathing, abdominal pain, n/v/d, blood in stool/urine, loss of control of bowel /bladder, urinary retention, muscle weakness/paralysis, saddle anesthesia, numbness/tingling, or other worsening symptoms that are concerning to you. Forms: Elevated Blood Pressure Referrals: GERARDO JARRETT MD [ACTIVE STAFF] - Follow up in 3-5 days AGUSTÍN DOUGLASS MD [ACTIVE STAFF] - Follow up in 3-5 days
[2017-10-02] MEDS ORDERED: CIPROFLOXACIN HCL 500 MG TABLET PO ONE (05:42)
[2017-10-02] MEDS ORDERED: DOXYCYCLINE HYCLATE INJ 100 MG VIAL IV ONE (06:09)
--- NOTE | 2017-10-02 08:30 | Progress Note ---
Provider Note Provider Note: Patient refused admission. Spoke to patient about her elevated white blood cell count however patient states that she feels fine and does not want to be admitted to the hospital. Patient states that she only came to the emergency room because she wanted her pessary readjusted. Spoke to the ER provider Ed who has resumed care of this patient. He went back to talk with patient and patient vocalized the same statement that she does not want to be admitted. Patient is alert oriented person place and time therefore able to make her own decisions. Will not admit patient due to her request not to be admitted. If ER needs our assistance or if patient changes her mind please feel free to call us again.
[2017-10-02 08:58] VITALS: BP 121/70
[2017-10-02 10:30] LABS: WHITE BLOOD COUNT 25.2 10^3/uL (4.0-10.5)
[2017-10-02 10:32] LABS: PLATELET COUNT 106 10^3/uL (150-450)
== END 2017-10-02 08:58 | disposition home or self-care (01) ==
LOC: ER 23:51
DX: T82.9XXA Unspecified complication of cardiac and vascular prosthetic device, implant and graft, initial encounter (principal); D72.829 Elevated white blood cell count, unspecified; R10.2 Pelvic and perineal pain; R10.9 Unspecified abdominal pain; R11.0 Nausea
CPT/HCPCS: 99284; 96361; 96365; 36415; 87040; 87086; 83690; 85025; 80053; 81001; 74176; J3490; J7030; 87088